=== PATIENT | female | born 1980 | race Caucasian/White ===

== ENCOUNTER 2016-04-03 11:09 | Outpatient (RCR) | payer OTHER ==
[~2016-04-03] VITALS: Ht 175.3 cm; Wt 115.8 kg
[~2016-04-03 11:09] MED LIST: ALBU2.5V4 NEB; ALPR1TAB7 PO; AMOX600S41 PO; CEFD300C3 PO; CYAN100081 PO; CYCL10TA9 PO; FLUC10SU9 PO; FLUO20CA25 PO; FLUO40CA12 PO; IBUP-1773 PO; LEVO750T9 PO; LISI-552 PO; LISI1TAB10 PO; LVT.05T; MULT-35 PO; MULT-974 PO; NADO40TA PO; NAPR-243 PO; NF-ESOM40C; NORG1TAB14 PO; OMEP20CA12 PO; ONDA-42 SL; ONDA4TAB10 PO; ONDA8TAB9 PO; ONDN4T PO; OXYC-197 PO; OXYC5SOL19 PO; PANT40TA2 PO; PANT40TA3 PO; RABE20TA PO; SITA1TAB2 PO; SITA1TAB6 PO; SUCR1ORA5 PO; TRM50T PO; VITAMIN B 12
--- OUTSIDE RECORDS SUMMARY | 2016-04-03 11:14 | XMS REPORT | Continuity of Care Document ---
Author Author [facility] Organization [facility] Address Unknown Phone Unavailable Care Team Providers Care Diorama Model Maker Name Role Phone VAISHNAVI PASCUAL MD PCP Insurance Providers Payer Name Policy Number Subscriber Name Relationship [employer] [place] [id number] Dimitri Mcfadden 18 Self / Same As Patient Advance Directives Directive Response Recorded Date/Time Advance Directives No 09/29/15 11:02am Health Care Power of Radiographic Technologist No 09/29/15 11:02am Organ Donor No 09/29/15 11:02am Resuscitation Status Full Code 09/29/15 11:02am Chief Complaint and Reason for Visit Chief Complaint Fever-Adult/Adol Reason for Visit Hypoxia Postoperative fever Pneumonia Problems Active Problems Medical Problem Onset Date Status Fever Unknown Acute Fever Unknown Acute Hypoxia Unknown Acute Nausea and vomiting Unknown Acute Pleural effusion, left Unknown Acute Pneumonia Unknown Acute Postoperative fever Unknown Acute Right lower quadrant pain Unknown Acute Medications Current Home Medications Medication Dose Units Route Directions Days/Qty Instructions Start Date Lisinopril 20 Mg 20 Mg Oral Daily 09/04/15 Oxycodone Hcl 5 Mg/5 Ml 5-10 Mg Oral Every 6 Hours for Pain 300 Pantoprazole Sodium 40 Mg 40 Mg Oral Daily 30 09/14/15 Ondansetron Hcl 4 Mg 4 Mg Oral Every 6 Hours for Nausea 30 05/27/16 Cefdinir (Omnicef) 300 Mg 300 Mg Oral Twice A Day 14 09/23/15 Levofloxacin 750 Mg 750 Mg Oral Daily 4 Start 09/30/15 09/29/15 Past Home Medications Medication Directions Ordered Status Nadolol 40 Mg Tablet, 40 Mg Oral Bedtime 06/14/09 Discontinued Levothyroxine Sodium (Levothroid) 50 Mcg Tablet, 06/14/09 Discontinued Sitagliptin Phos/Metformin Hcl 1 Each Tablet, 1 Tab Oral Daily 06/14/09 Discontinued Esomeprazole Magnesium 40 Mg Capsule., 06/14/09 Discontinued [Vitamin B 12] , 06/14/09 Discontinued Naproxen 500 Mg Tablet, 1 Each Oral Three Times A Day And Prn 06/15/09 Discontinued Tramadol Hcl 50 Mg Tablet, 1 Tab Oral Four Times Daily 06/15/09 Discontinued Hctz/Lisinopril (Zestoretic) 1 Tab Tablet, 1 Tab Oral Daily 07/08/13 Discontinued Rabeprazole Sodium 20 Mg Tablet., 20 Mg Oral Daily 07/08/13 Discontinued Fluoxetine Hcl (Prozac) 20 Mg Capsule, 20 Mg Oral Bedtime 07/08/13 Discontinued Multivitamin 1 Each Tablet, 1 Tab Oral Daily 07/08/13 Discontinued Cyclobenzaprine Hcl (Flexeril) 10 Mg Tablet, 1 Each Oral Every 8HRS as needed for Spasms 11/18/14 Discontinued Ondansetron Hcl 4 Mg Tab, 4 Mg Sublingual Every 4HRS as needed for Nausea/ Vomiting 11/19/14 Discontinued Ibuprofen 600 Mg Tablet, 600 Mg Oral Every 6 Hours for Pain 12/29/14 Discontinued Oxycodone Hcl/Acetaminophen 1 Each Tablet, 1 Each Oral Every 4HRS 12/29/14 Discontinued Norgestimate-Ethinyl Estradiol 1 Each Tablet, 1 Each Oral Daily 12/29/14 Discontinued Ondansetron 8 Mg Tab.rapdis, 8 Mg Oral Three Times A Day as needed for Nausea 12/29/14 Discontinued Fluoxetine Hcl 40 Mg Capsule, 40 Mg Oral Bedtime 09/04/15 Discontinued Omeprazole 20 Mg Capsule., 20 Mg Oral Daily 09/04/15 Discontinued Sitagliptin Phos/Metformin Hcl 1 Tab Tablet, 1 Tab Oral Daily 09/04/15 Discontinued Social History Social History Problem Response Recorded Date/Time Alcohol Use Denies Use 09/29/2015 11:02am Recreational Drug Use No 09/29/2015 11:02am Recent Foreign Travel No 09/29/2015 11:00am Recent Infectious Disease Exposure No 09/29/2015 11:00am Hospitalization with Isolation Denies 09/29/2015 11:00am HIV/AIDS No 09/29/2015 11:02am Smoking Status Never a Smoker 09/29/2015 11:02am Query Response Start Date Stop Date Smoking Status Never a Smoker Hospital Discharge Instructions No hospital discharge instructions. Plan of Care Discharge Date 09/29/15 3:15pm Disposition 01 HOME, SELF-CARE Condition at Discharge Improved Instructions/Education Provided Bacterial Pneumonia (ED) Prescriptions See Medication Section Referrals VAISHNAVI PASCUAL MD - Primary Care Physician LUIZA BARBOSA - Primary Care Physician Additional Instructions/Education Call [facility] today or Thursday to schedule a follow-up appointment. Contact Dr. Fitzpatrick directly if condition worsens and direct admission is felt necessary. Return to the emergency room for unstable complications. Complete the entire course of antibiotics as prescribed. Continue to use nebulizer treatments up to every 4 hours as needed. Contact Dr. Fitzpatrick if not maintaining oxygen saturations above 90% on 2 Lpm nasal canula. All discharge instructions reviewed with patient and/or family. Voiced understanding. Functional Status No functional status results. Allergies, Adverse Reactions, Alerts Allergen Type Severity Reaction Status Last Updated Sumatriptan Allergy Severe ANAPHYLAXIS Active 09/04/15 Immunizations Name Given Type Date of Influenza Vaccine 02/07/13 Historical Hepatitis A Yes Historical Hepatitis B Yes Historical Tetanus Booster (TDap) Less than 5yrs Historical Vital Signs Acute Vital Signs Vital Response Date/Time Temperature (Fahrenheit) 99.4 degrees F (97.6 - 99.5) 09/29/2015 11:00am Temperature (Calculated Celsius) 37.18687 degrees C (36.4 - 37.5) 09/29/2015 11:00am Temperature Source Temporal 09/29/2015 11:00am Pulse Rate (adult) 104 bpm (60 - 90) 09/29/2015 11:00am Respiratory Rate 18 bpm (12 - 24) 09/29/2015 11:00am O2 Sat by Pulse Oximetry 90 % (88 - 100) 09/29/2015 11:00am Blood Pressure 162/99 mm Hg 09/29/2015 11:00am Blood Pressure Mean 120 mm Hg 09/29/2015 11:00am Pain Pain Intensity 6 09/29/2015 11:00am Height (Feet) 5 feet 09/29/2015 11:00am Height (Inches) 9 inches 09/29/2015 11:00am Height (Calculated Centimeters) 175.347084 cm 09/29/2015 11:00am Weight (Pounds) 304 pounds 09/29/2015 11:00am Weight (Ounces) 0.0 oz 09/13/2015 12:04pm Weight (Calculated Grams) 134496.375 gm 09/13/2015 12:04pm Weight (Calculated Kilograms) 137.865224 kilograms 09/29/2015 11:00am Calculated BMI 47.0 09/13/2015 12:04pm Results Laboratory Results Test Name Result Units Flags Reference Collection Date/Time Result Date/ Time Comments White Blood Count 9.7 10^3/uL 4.3-11.0 09/14/2015 6:07am 09/14/2015 6: 43am Red Blood Count 3.63 10^6/uL L 4.35-5.85 09/14/2015 6:07am 09/14/2015 6: 43am Hemoglobin 10.7 G/DL L 11.5-16.0 09/14/2015 6:07am 09/14/2015 6:43am Hematocrit 33 % L 35-52 09/14/2015 6:07am 09/14/2015 6:43am Mean Corpuscular Volume 90 FL 80-99 09/14/2015 6:07am 09/14/2015 6: 43am Mean Corpuscular Hemoglobin 30 PG 25-34 09/14/2015 6:07am 09/14/2015 6: 43am Mean Corpuscular Hemoglobin Concent 33 G/DL 32-36 09/14/2015 6:07am 6:43am Red Cell Distribution Width 15.1 % H 10.0-14.5 09/14/2015 6:07am 2015 6:43am Platelet Count 255 10^3/uL 130-400 09/14/2015 6:07am 09/14/2015 6:43am Mean Platelet Volume 10.2 FL 7.4-10.4 09/14/2015 6:07am 09/14/2015 6: 43am Sodium Level 140 MMOL/L 135-145 09/14/2015 6:07am 09/14/2015 6:57am Potassium Level 4.5 MMOL/L 3.6-5.0 09/14/2015 6:07am 09/14/2015 6:57am Chloride Level 104 MMOL/L 98-107 09/14/2015 6:07am 09/14/2015 6:57am Carbon Dioxide Level 27 MMOL/L 21-32 09/14/2015 6:07am 09/14/2015 6: 57am Anion Gap 9 MMOL/L 5-14 09/14/2015 6:07am 09/14/2015 6:57am Blood Urea Nitrogen 9 MG/DL 7-18 09/14/2015 6:07am 09/14/2015 6:57am Creatinine 0.78 MG/DL 0.60-1.30 09/14/2015 6:07am 09/14/2015 6:57am BUN/Creatinine Ratio 12 09/14/2015 6:07am 09/14/2015 6:57am Estimat Glomerular Filtration Rate > 60 09/14/2015 6:07am 2015 6:57am GFR INTERPRETIVE DATA UNITS FOR ESTIMATED GFR (eGFR): mL/min/1.73 M2 REFERENCE RANGE FOR ESTIMATED GFR (eGFR) eGFR NORMAL eGFR >60 MODERATELY DECREASED eGFR 30-59 SEVERLY DECREASED eGFR 15-29 KIDNEY FAILURE <15 (OR DIALYSIS) Glucose Level 126 MG/DL H 70-105 09/14/2015 6:07am 09/14/2015 6:57am Calcium Level 8.7 MG/DL 8.5-10.1 09/14/2015 6:07am 09/14/2015 6:57am Pending Laboratory Results Test Name Collection Date/Time Pending Microbiology Results Procedure Source Collection Date/Time Procedures Procedure Status Date Provider(s) EXCISION OF STOMACH, PERCUTANEOUS ENDOSCOPIC APPROACH, VERT Completed KHLOE WHITEHEAD MD Encounters Encounter Location Arrival/Admit Date Discharge/Depart Date Attending Provider Departed Emergency Room [facility] 09/29/15 10:55am 03/05 3:15pm LUIS GEIGER MD Departed Emergency Room [facility] 09/23/15 5:12pm 09/22 8:43pm ALEXA TAYLOR APRN Discharged Inpatient [facility] 09/13/15 11:27am 2:18pm KHLOE WHITEHEAD MD Departed Clinic [facility] 09/04/15 12:21pm 09/04/15 2: 46pm KHLOE WHITEHEAD MD Recent Diagnosis
[2016-04-03] MEDS ORDERED: NADO40TA PO (11:31)
[2016-04-03] MEDS ORDERED: CHOL2000 PO (11:31)
[2016-04-03 11:35] VITALS: BP 172/97
--- OUTSIDE RECORDS SUMMARY | 2016-04-03 12:09 | XMS REPORT | Continuity of Care Document ---
Author Author [facility] Organization [facility] Address Unknown Phone Unavailable Care Team Providers Care Heat Reader Name Role Phone VAISHNAVI PASCUAL MD PCP Insurance Providers Payer Name Policy Number Subscriber Name Relationship [employer] [place] [id number] Dimitri Mcfadden 18 Self / Same As Patient Advance Directives Directive Response Recorded Date/Time Advance Directives No 09/29/15 11:02am Health Care Power of Meal Grinder Tender No 09/29/15 11:02am Organ Donor No 09/29/15 [...] - Primary Care Physician Additional Instructions/Education Call [facility] today or Thursday to schedule a follow-up [...] - 99.5) 09/29/2015 11:00am Temperature (Calculated Celsius) 37.83062 degrees C (36.4 - 37.5) 09/29/2015 11:00am [...] 9 inches 09/29/2015 11:00am Height (Calculated Centimeters) 175.582050 cm 09/29/2015 11:00am Weight (Pounds) 304 pounds 09/29/2015 11:00am Weight (Ounces) 0.0 oz 09/13/2015 12:04pm Weight (Calculated Grams) 962217.375 gm 09/13/2015 12:04pm Weight (Calculated Kilograms) 137.716283 kilograms 09/29/2015 11:00am Calculated BMI 47.0 09/13/2015 [...] Date Attending Provider Departed Emergency Room [facility] 09/29/15 10:55am 03/05 3:15pm LUIS GEIGER MD Departed Emergency Room [facility] 09/23/15 5:12pm 09/22 8:43pm ALEXA TAYLOR APRN Discharged Inpatient [facility] 09/13/15 11:27am 2:18pm KHLOE WHITEHEAD MD Departed Clinic [facility] 09/04/15 12:21pm 09/04/15 2: 46pm KHLOE WHITEHEAD MD Recent Diagnosis
[2016-04-08 08:41] LABS: BASOPHILS % (AUTO) 0 % (0-10); EOSINOPHILS # (AUTO) 0.1 10^3/uL (0.0-0.3); EOSINOPHILS % (AUTO) 1 % (0-10); LYMPHOCYTES % (AUTO) 40 % (12-44); MEAN CORPUSCULAR HEMOGLOBIN 28 PG (25-34); MEAN CORPUSCULAR HGB CONC 32 G/DL (32-36); MEAN CORPUSCULAR VOLUME 88 FL (80-99); MEAN PLATELET VOLUME 10.8 FL (7.4-10.4); MONOCYTES # (AUTO) 0.6 X 10^3 (0.0-1.0); MONOCYTES % (AUTO) 8 % (0-12); NEUTROPHILS # (AUTO) 3.7 X 10^3 (1.8-7.8); NEUTROPHILS % (AUTO) 50 % (42-75); PLATELET COUNT 258 10^3/uL (130-400); RED BLOOD COUNT 4.65 10^6/uL (4.35-5.85); RED CELL DISTRIBUTION WIDTH 15.2 % (10.0-14.5); WHITE BLOOD COUNT 7.4 10^3/uL (4.3-11.0)
[2016-04-08 09:01] LABS: ANION GAP 7 MMOL/L (5-14); BLOOD UREA NITROGEN 11 MG/DL (7-18); BUN/CREATININE RATIO 16; CALCIUM 9.4 MG/DL (8.5-10.1); CARBON DIOXIDE 27 MMOL/L (21-32); CHLORIDE 104 MMOL/L (98-107); CREATININE SERUM 0.68 MG/DL (0.60-1.30); GFR ESTIMATED > 60; GLUCOSE 98 MG/DL (70-105); POTASSIUM 4.1 MMOL/L (3.6-5.0); SODIUM 138 MMOL/L (135-145)
[2016-04-10] MEDS ORDERED: DEXAINTSOL PO (11:06)
[2016-04-10] MEDS ORDERED: AMOX250S5 PO (11:06)
[2016-04-10] MEDS ORDERED: OXYC5SOL19 PO (11:06)
[2016-04-10] MEDS ORDERED: TETRACAINESUCKERS MT (11:06)
== END 2016-07-02 | disposition home or self-care (01) ==
LOC: PREOP 11:09 → EDSTATUS 14:00
PROVIDERS: ATTEND Otolaryngology Otolaryngology/Facial Plastic Surgery
DX: Z01.818 Encounter for other preprocedural examination (principal); G47.33 Obstructive sleep apnea (adult) (pediatric); J35.1 Hypertrophy of tonsils; J35.8 Other chronic diseases of tonsils and adenoids
CPT/HCPCS: 36415; 80048; 84703; 85025; 87081; 93005

== ENCOUNTER → 2016-05-14 | Outpatient (CLI) | payer OTHER ==
[~2016-05-14] VITALS: Ht 175.3 cm; Wt 114.8 kg
[~2016-05-14] MED LIST changes: +AMOX250S5 PO; +CHOL2000 PO; +DEXAINTSOL PO; +NS IV 1000 ML 1,000 ML IV ONE; +TETRACAINESUCKERS MT
--- OUTSIDE RECORDS SUMMARY | 2016-05-14 19:18 | XMS REPORT | Continuity of Care Document ---
Author Author [facility] Organization [facility] Address Unknown Phone Unavailable Care Team Providers Care Hand Lens Polisher Name Role Phone VAISHNAVI PASCUAL MD PCP Insurance Providers Payer Name Policy Number Subscriber Name Relationship [employer] [place] [id number] Dimitri Mcfadden 18 Self / Same As Patient Advance Directives Directive Response Recorded Date/Time Advance Directives No 09/29/15 11:02am Health Care Power of Claims Investigator No 09/29/15 11:02am Organ Donor No 09/29/15 [...] - Primary Care Physician Additional Instructions/Education Call [facility] today or Thursday to schedule a [...] - 99.5) 09/29/2015 11:00am Temperature (Calculated Celsius) 37.00875 degrees C (36.4 - 37.5) 09/29/2015 11:00am [...] 9 inches 09/29/2015 11:00am Height (Calculated Centimeters) 175.776048 cm 09/29/2015 11:00am Weight (Pounds) 304 pounds 09/29/2015 11:00am Weight (Ounces) 0.0 oz 09/13/2015 12:04pm Weight (Calculated Grams) 307270.375 gm 09/13/2015 12:04pm Weight (Calculated Kilograms) 137.049297 kilograms 09/29/2015 11:00am Calculated BMI 47.0 09/13/2015 [...] Date Attending Provider Departed Emergency Room [facility] 09/29/15 10:55am 03/05 3:15pm LUIS GEIGER MD Departed Emergency Room [facility] 09/23/15 5:12pm 09/22 8:43pm ALEXA TAYLOR APRN Discharged Inpatient [facility] 09/13/15 11:27am 2:18pm KHLOE WHITEHEAD MD Departed Clinic [facility] 09/04/15 12:21pm 09/04/15 2: 46pm KHLOE WHITEHEAD MD Recent Diagnosis
[2016-05-14 21:07] VITALS: BP 185/95
[2016-05-15 00:55] VITALS: BP 185/95
== END ==
LOC: 4THo 19:15
PROVIDERS: ATTEND Nurse Practitioner Family
DX: G43.011 Migraine without aura, intractable, with status migrainosus (principal)

== ENCOUNTER 2016-05-19 14:22 | Outpatient (RCR) | payer OTHER ==
[~2016-05-19 14:22] MED LIST changes: -NS IV 1000 ML 1,000 ML IV ONE
--- OUTSIDE RECORDS SUMMARY | 2016-05-19 14:28 | XMS REPORT | Continuity of Care Document ---
Author Author [facility] Organization [facility] Address Unknown Phone Unavailable Care Team Providers Care Environmental Programs Manager Name Role Phone VAISHNAVI PASCUAL MD PCP Insurance Providers Payer Name Policy Number Subscriber Name Relationship [employer] [place] [id number] Dimitri Mcfadden 18 Self / Same As Patient Advance Directives Directive Response Recorded Date/Time Advance Directives No 09/29/15 11:02am Health Care Power of Switch Operators Supervisor No 09/29/15 11:02am Organ Donor No 09/29/15 [...] - Primary Care Physician Additional Instructions/Education [facility] today or Thursday to schedule a follow-up [...] - 99.5) 09/29/2015 11:00am Temperature (Calculated Celsius) 37.43877 degrees C (36.4 - 37.5) 09/29/2015 11:00am [...] 9 inches 09/29/2015 11:00am Height (Calculated Centimeters) 175.885947 cm 09/29/2015 11:00am Weight (Pounds) 304 pounds 09/29/2015 11:00am Weight (Ounces) 0.0 oz 09/13/2015 12:04pm Weight (Calculated Grams) 620061.375 gm 09/13/2015 12:04pm Weight (Calculated Kilograms) 137.964131 kilograms 09/29/2015 11:00am Calculated BMI 47.0 09/13/2015 [...] Date Attending Provider Departed Emergency Room [facility] 09/29/15 10:55am 03/05 3:15pm LUIS GEIGER MD Departed Emergency Room [facility] 09/23/15 5:12pm 09/22 8:43pm ALEXA TAYLOR APRN Discharged Inpatient [facility] 09/13/15 11:27am 2:18pm KHLOE WHITEHEAD MD Departed Clinic [facility] 09/04/15 12:21pm 09/04/15 2: 46pm KHLOE WHITEHEAD MD Recent Diagnosis
== END 2016-05-23 02:15 | disposition home or self-care (01) ==
LOC: LAB 14:22
PROVIDERS: ATTEND Internal Medicine Cardiovascular Disease
DX: I10 Essential (primary) hypertension (principal); G47.33 Obstructive sleep apnea (adult) (pediatric); R21 Rash and other nonspecific skin eruption; E66.9 Obesity, unspecified
CPT/HCPCS: 36415; 82575; 85652; 86038

== ENCOUNTER → 2016-05-21 | Outpatient (CLI) | payer OTHER ==
--- OUTSIDE RECORDS SUMMARY | 2016-05-21 15:04 | XMS REPORT | Continuity of Care Document ---
Author Author [facility] Organization [facility] Address Unknown Phone Unavailable Care Team Providers Care Director Of Dance Name Role Phone VAISHNAVI PASCUAL MD PCP Insurance Providers Payer Name Policy Number Subscriber Name Relationship [employer] [place] [id number] Dimitri Mcfadden 18 Self / Same As Patient Advance Directives Directive Response Recorded Date/Time Advance Directives No 09/29/15 11:02am Health Care Power of Crayon Painter No 09/29/15 11:02am Organ Donor No 09/29/15 [...] - Primary Care Physician Additional Instructions/Education Call [facility] today or Thursday to schedule a follow-up appointment. Contact Dr. iFtzpatrick directly if condition worsens and direct admission [...] - 99.5) 09/29/2015 11:00am Temperature (Calculated Celsius) 37.38264 degrees C (36.4 - 37.5) 09/29/2015 11:00am [...] 9 inches 09/29/2015 11:00am Height (Calculated Centimeters) 175.812685 cm 09/29/2015 11:00am Weight (Pounds) 304 pounds 09/29/2015 11:00am Weight (Ounces) 0.0 oz 09/13/2015 12:04pm Weight (Calculated Grams) 350993.375 gm 09/13/2015 12:04pm Weight (Calculated Kilograms) 137.466843 kilograms 09/29/2015 11:00am Calculated BMI 47.0 09/13/2015 [...] Date Attending Provider Departed Emergency Room [facility] 09/29/15 10:55am 03/05 3:15pm LUIS GEIGER MD Departed Emergency Room [facility] 09/23/15 5:12pm 09/22 8:43pm ALEXA TAYLOR APRN Discharged Inpatient [facility] 09/13/15 11:27am 2:18pm KHLOE WHITEHEAD MD Departed Clinic [facility] 09/04/15 12:21pm 09/04/15 2: 46pm KHLOE WHITEHEAD MD Recent Diagnosis
--- NOTE | 2016-05-21 15:18 | Diagnostic Imaging Report ---
PROCEDURE: CT head without contrast. TECHNIQUE: Multiple contiguous axial images were obtained through the brain without the use of intravenous contrast. INDICATION: Intractable headache. FINDINGS: There is no intracranial hemorrhage, edema, or mass effect. The brain parenchyma and maloney-white matter differentiation is preserved. No extra-axial fluid collection. No hydrocephalus. The calvarium, the visualized portions of the paranasal sinuses, and the orbits appear grossly unremarkable. IMPRESSION: Unremarkable exam. Dictated by: Dictated on workstation # [id number]
== END ==
LOC: RAD 15:00
PROVIDERS: ATTEND Nurse Practitioner Family
DX: G43.019 Migraine without aura, intractable, without status migrainosus (principal)
CPT/HCPCS: 70450

== ENCOUNTER → 2016-05-22 | Outpatient (CLI) | payer OTHER ==
--- OUTSIDE RECORDS SUMMARY | 2016-05-22 08:03 | XMS REPORT | Continuity of Care Document ---
Author Author [facility] Organization [facility] Address Unknown Phone Unavailable Care Team Providers Care Handkerchief Presser Name Role Phone VAISHNAVI PASCUAL MD PCP Insurance Providers Payer Name Policy Number Subscriber Name Relationship [employer] [place] [id number] Dimitri Mcfadden 18 Self / Same As Patient Advance Directives Directive Response Recorded Date/Time Advance Directives No 09/29/15 11:02am Health Care Power of Bicycle Inspector No 09/29/15 11:02am Organ Donor No 09/29/15 [...] Primary Care Physician Additional Instructions/Education Call [facility] today or Thursday to schedule a follow-up [...] - 99.5) 09/29/2015 11:00am Temperature (Calculated Celsius) 37.44008 degrees C (36.4 - 37.5) 09/29/2015 11:00am [...] 9 inches 09/29/2015 11:00am Height (Calculated Centimeters) 175.027678 cm 09/29/2015 11:00am Weight (Pounds) 304 pounds 09/29/2015 11:00am Weight (Ounces) 0.0 oz 09/13/2015 12:04pm Weight (Calculated Grams) 363656.375 gm 09/13/2015 12:04pm Weight (Calculated Kilograms) 137.461875 kilograms 09/29/2015 11:00am Calculated BMI 47.0 09/13/2015 [...] Date Attending Provider Departed Emergency Room [facility] 09/29/15 10:55am 03/05 3:15pm LUIS GEIGER MD Departed Emergency Room [facility] 09/23/15 5:12pm 09/22 8:43pm ALEXA TAYLOR APRN Discharged Inpatient [facility] 09/13/15 11:27am 2:18pm KHLOE WHITEHEAD MD Departed Clinic [facility] 09/04/15 12:21pm 09/04/15 2: 46pm KHLOE WHITEHEAD MD Recent Diagnosis
[2016-05-22 09:46] LABS: MEAN PLATELET VOLUME 10.4 FL (7.4-10.4); RED BLOOD COUNT 4.28 10^6/uL (4.35-5.85); RED CELL DISTRIBUTION WIDTH 14.3 % (10.0-14.5); WHITE BLOOD COUNT 6.2 10^3/uL (4.3-11.0)
[2016-05-22 10:24] LABS: ALANINE AMINOTRANSFERASE 11 U/L (0-55); ALBUMIN 4.2 G/DL (3.2-4.5); ANION GAP 8 MMOL/L (5-14); ASPARTATE AMINO TRANSFERASE 13 U/L (5-34); BILIRUBIN,TOTAL 0.6 MG/DL (0.1-1.0); BLOOD UREA NITROGEN 14 MG/DL (7-18); BUN/CREATININE RATIO 18; CALCIUM 9.4 MG/DL (8.5-10.1); CARBON DIOXIDE 29 MMOL/L (21-32); CHLORIDE 104 MMOL/L (98-107); CHOLESTEROL 180 MG/DL (< 200); DIRECT LDL 127 MG/DL (1-129); GFR ESTIMATED > 60; GLUCOSE 93 MG/DL (70-105); MAGNESIUM 2.3 MG/DL (1.8-2.4); POTASSIUM 3.6 MMOL/L (3.6-5.0); SODIUM 141 MMOL/L (135-145); TOTAL PROTEIN 7.6 G/DL (6.4-8.2); TRIGLYCERIDES 102 MG/DL (<150); VLDL CHOLESTEROL 20 MG/DL (5-40)
[2016-05-22 10:44] LABS: THYROID STIMULATING HORMONE 0.58 UIU/ML (0.35-4.94)
[2016-05-23 07:44] LABS: FOLIC ACID 15.1 ng/mL (1.5-24.0)
[2016-05-23 07:51] LABS: INSULIN SERUM 25.7 mU/L (6.0-27.0)
== END ==
LOC: LAB 07:59
PROVIDERS: ATTEND Nurse Practitioner Family
DX: Z09 Encounter for follow-up examination after completed treatment for conditions other than malignant neoplasm (principal); Z98.890 Other specified postprocedural states
CPT/HCPCS: 36415; 80053; 80061; 82306; 82607; 82746; 83036; 83525; 83735; 84443; 85027

== ENCOUNTER → 2016-05-22 | Outpatient (CLI) | payer OTHER ==
--- OUTSIDE RECORDS SUMMARY | 2016-05-22 08:41 | XMS REPORT | Continuity of Care Document ---
Author Author [facility] Organization [facility] Address Unknown Phone Unavailable Care Team Providers Care Quantitative Associate Name Role Phone VAISHNAVI PASCUAL MD PCP Insurance Providers Payer Name Policy Number Subscriber Name Relationship [employer] [place] [id number] Dimitri Mcfadden 18 Self / Same As Patient Advance Directives Directive Response Recorded Date/Time Advance Directives No 09/29/15 11:02am Health Care Power of Complaint Manager No 09/29/15 11:02am Organ Donor No 09/29/15 [...] - Primary Care Physician Additional Instructions/Education Call [facility] today or Thursday to schedule [...] - 99.5) 09/29/2015 11:00am Temperature (Calculated Celsius) 37.11669 degrees C (36.4 - 37.5) 09/29/2015 11:00am [...] 9 inches 09/29/2015 11:00am Height (Calculated Centimeters) 175.760871 cm 09/29/2015 11:00am Weight (Pounds) 304 pounds 09/29/2015 11:00am Weight (Ounces) 0.0 oz 09/13/2015 12:04pm Weight (Calculated Grams) 288962.375 gm 09/13/2015 12:04pm Weight (Calculated Kilograms) 137.359551 kilograms 09/29/2015 11:00am Calculated BMI 47.0 09/13/2015 [...] Date Attending Provider Departed Emergency Room [facility] 09/29/15 10:55am 03/05 3:15pm ULIS GEIGER MD Departed Emergency Room [facility] 09/23/15 5:12pm 09/22 8:43pm ALEXA TAYLOR APRN Discharged Inpatient [facility] 09/13/15 11:27am 2:18pm KHLOE WHITEHEAD MD Departed Clinic [facility] 09/04/15 12:21pm 09/04/15 2: 46pm KHLOE WHITEHEAD MD Recent Diagnosis
--- NOTE | 2016-05-22 13:13 | Diagnostic Imaging Report ---
Renal duplex ultrasound. INDICATION: Hypertension. FINDINGS: The right kidney is 10.4 cm and the left kidney is 12.4 cm in length. There is no hydronephrosis or focal lesion in either kidney. The urinary bladder appears unremarkable. Incidental gallstones were noted. The peak systolic velocities in the right renal artery are 79, 128, and 91 cm/s from proximal to distal and on the left side 85, 102, and 106 cm/s from proximal to distal. The resistive index on the right side is in the range of 0.61-0.69 and on the left in the range of 0.61-0.67. IMPRESSION: 1. Cholelithiasis. 2. No evidence of renal artery stenosis. Dictated by: Dictated on workstation # [id number]
== END ==
LOC: RAD 08:38
PROVIDERS: ATTEND Internal Medicine Cardiovascular Disease
DX: I10 Essential (primary) hypertension (principal); G47.33 Obstructive sleep apnea (adult) (pediatric); R21 Rash and other nonspecific skin eruption; E66.9 Obesity, unspecified
CPT/HCPCS: 93975

== ENCOUNTER → 2016-06-01 | Outpatient (CLI) | payer OTHER ==
[2016-06-01 10:23] LABS: BODY SURFACE AREA 2.28
--- OUTSIDE RECORDS SUMMARY | 2016-06-02 09:41 | XMS REPORT | Continuity of Care Document ---
Author Author [facility] Organization [facility] Address Unknown Phone Unavailable Care Team Providers Care Inter Com Servicer Name Role Phone VAISHNAVI PASCUAL MD PCP Insurance Providers Payer Name Policy Number Subscriber Name Relationship [employer] [place] [id number] Dimitri Mcfadden 18 Self / Same As Patient Advance Directives Directive Response Recorded Date/Time Advance Directives No 09/29/15 11:02am Health Care Power of Slumber Room Attendant No 09/29/15 11:02am Organ Donor No 09/29/15 [...] Care Physician Additional Instructions/Education Call [facility] today or Thursday to schedule a follow-up [...] - 99.5) 09/29/2015 11:00am Temperature (Calculated Celsius) 37.41191 degrees C (36.4 - 37.5) 09/29/2015 11:00am [...] 9 inches 09/29/2015 11:00am Height (Calculated Centimeters) 175.888513 cm 09/29/2015 11:00am Weight (Pounds) 304 pounds 09/29/2015 11:00am Weight (Ounces) 0.0 oz 09/13/2015 12:04pm Weight (Calculated Grams) 537478.375 gm 09/13/2015 12:04pm Weight (Calculated Kilograms) 137.511360 kilograms 09/29/2015 11:00am Calculated BMI 47.0 09/13/2015 [...] Date Attending Provider Departed Emergency Room [facility] 09/29/15 10:55am 03/05 3:15pm LUIS GEIGER MD Departed Emergency Room [facility] 09/23/15 5:12pm 09/22 8:43pm ALEXA TAYLOR APRN Discharged Inpatient [facility] 09/13/15 11:27am 2:18pm KHLOE WHITEHEAD MD Departed Clinic [facility] 09/04/15 12:21pm 09/04/15 2: 46pm KHLOE WHITEHEAD MD Recent Diagnosis
--- OUTSIDE RECORDS SUMMARY | 2016-06-02 09:44 | XMS REPORT | Continuity of Care Document ---
Author Author [facility] Organization [facility] Address Unknown Phone Unavailable Care Team Providers Care Delivery Analyst Name Role Phone VAISHNAVI PASCUAL MD PCP Insurance Providers Payer Name Policy Number Subscriber Name Relationship [employer] [place] [id number] Dimitri Mcfadden 18 Self / Same As Patient Advance Directives Directive Response Recorded Date/Time Advance Directives No 09/29/15 11:02am Health Care Power of Child Psychology Teacher No 09/29/15 11:02am Organ Donor No 09/29/15 [...] - Primary Care Physician Additional Instructions/Education Call [facility] today or Thursday to schedule a [...] - 99.5) 09/29/2015 11:00am Temperature (Calculated Celsius) 37.45689 degrees C (36.4 - 37.5) 09/29/2015 11:00am [...] 9 inches 09/29/2015 11:00am Height (Calculated Centimeters) 175.624900 cm 09/29/2015 11:00am Weight (Pounds) 304 pounds 09/29/2015 11:00am Weight (Ounces) 0.0 oz 09/13/2015 12:04pm Weight (Calculated Grams) 675598.375 gm 09/13/2015 12:04pm Weight (Calculated Kilograms) 137.790970 kilograms 09/29/2015 11:00am Calculated BMI 47.0 09/13/2015 [...] Date Attending Provider Departed Emergency Room [facility] 09/29/15 10:55am 03/05 3:15pm LUIS GEIGER MD Departed Emergency Room [facility] 09/23/15 5:12pm 09/22 8:43pm ALEXA TAYLOR APRN Discharged Inpatient [facility] 09/13/15 11:27am 2:18pm KHLOE WHITEHEAD MD Departed Clinic [facility] 09/04/15 12:21pm 09/04/15 2: 46pm KHLOE WHITEHEAD MD Recent Diagnosis
[2016-06-06 08:27] LABS: 5HIAA CREATININE 112 MG/DL; CREATININE SEROTONIN 2016 MG/D (700-1600)
[2016-06-06 08:28] LABS: NOREPINEPHRINE RANDOM URINE 53 ug/L
[2016-06-06 08:29] LABS: EPINEPHERINE URINE 2 UG/DAY (1-7)
[2016-06-06 08:31] LABS: NOREPINEPHRINE RATIO 47 H UG/G CRT (0-45)
[2016-06-06 08:32] LABS: CATECHOLAMINES URINE INTERP SEE FOOTNOTE; CREATININE CAT FR MG/DL 112 MG/DL; DOPAMINE RATIO 154 UG/G CRT (0-250)
--- NOTE | 2016-06-11 14:29 | Physician Query-Final Dx ---
ROXANNA BUCKNER 06/11/16 1429: Clinic Account Progress/Dx Physician Query: Please give diagnosis Date of Service Jun 01, 2016 at 08:00 BOONE MUÑOZ MD 06/12/16 0722: Clinic Account Progress/Dx DIAGNOSIS: Diagnosis hypertension ROXANNA BUCKNER Jun 11, 2016 14:29 BOONE MUÑOZ MD Jun 12, 2016 07:22
[2016-07-22 10:32] LABS: 5 HIAA SEROTONIN URINE MG/L 3.8 MG/L
[2016-07-22 10:33] LABS: 5 HIAA SEROTONIN URINE RATIO 4 mg/gCR (0-14); 5 HIAA URINE INTERPRETATION SEE FOOTNOTE
[2016-07-22 10:34] LABS: VMA CREATININE RATIO 3 MG/GCR (0-6); VMA URINE INTERPRETATION SEE FOOTNOTE
[2016-07-22 10:37] LABS: VMA 24 HOUR URINE 3.2
== END ==
LOC: LAB 08:00
PROVIDERS: ATTEND Internal Medicine Cardiovascular Disease
DX: I10 Essential (primary) hypertension (principal)
CPT/HCPCS: 36415; 82384; 82575; 83497; 84585

== ENCOUNTER → 2016-09-12 | Outpatient (CLI) | payer BC ==
[2016-09-12 10:17] LABS: RED BLOOD COUNT 4.11 10^6/uL (4.35-5.85); RED CELL DISTRIBUTION WIDTH 13.9 % (10.0-14.5); WHITE BLOOD COUNT 6.9 10^3/uL (4.3-11.0)
[2016-09-12 10:21] LABS: BILIRUBIN,URINE NEGATIVE (NEGATIVE); KETONES,URINE NEGATIVE (NEGATIVE); LEUKOCYTE ESTERASE ,URINE NEGATIVE (NEGATIVE); NITRITE,URINE NEGATIVE (NEGATIVE); PH,URINE 6.5 (5-9); PROTEIN,URINE NEGATIVE (NEGATIVE); UROBILINOGEN,URINE NORMAL (NORMAL)
[2016-09-12 10:38] LABS: ALANINE AMINOTRANSFERASE 11 U/L (0-55); ANION GAP 10 MMOL/L (5-14); ASPARTATE AMINO TRANSFERASE 12 U/L (5-34); BILIRUBIN,TOTAL 0.4 MG/DL (0.1-1.0); BLOOD UREA NITROGEN 13 MG/DL (7-18); BUN/CREATININE RATIO 18; CALCIUM 9.4 MG/DL (8.5-10.1); CARBON DIOXIDE 28 MMOL/L (21-32); CHLORIDE 102 MMOL/L (98-107); CREATININE SERUM 0.74 MG/DL (0.60-1.30); GFR ESTIMATED > 60; GLUCOSE 94 MG/DL (70-105); PHOSPHORUS 3.1 MG/DL (2.3-4.7); POTASSIUM 3.3 MMOL/L (3.6-5.0); SODIUM 140 MMOL/L (135-145); TOTAL PROTEIN 7.7 G/DL (6.4-8.2)
== END ==
LOC: LAB 08:40
PROVIDERS: ATTEND Nurse Practitioner Family
DX: R82.99 Other abnormal findings in urine (principal); I10 Essential (primary) hypertension
CPT/HCPCS: 80053; 80069; 81000; 82570; 84100; 84156; 85027

== ENCOUNTER → 2016-09-12 | Outpatient (CLI) | payer BC ==
[2016-09-12 11:02] LABS: THYROID STIMULATING HORMONE 0.58 UIU/ML (0.35-4.94)
[2016-09-12 16:51] LABS: %SAT TOTAL IRON BINDING CAPIC 11 % (15-50); TIBC 425 ug/dL (280-380)
[2016-09-12 17:04] LABS: UIBC 377 ug/dL
[2016-09-16 07:37] LABS: FOLIC ACID >24.0 ng/mL (1.5-24.0)
[2016-09-16 07:40] LABS: THIAMINE VITAMIN B1 92 nmol/L (70-180)
== END ==
LOC: LAB 08:21
PROVIDERS: ATTEND Obstetrics & Gynecology
DX: Z01.419 Encounter for gynecological examination (general) (routine) without abnormal findings (principal); E55.9 Vitamin D deficiency, unspecified; E03.9 Hypothyroidism, unspecified; Z87.19 Personal history of other diseases of the digestive system; Z98.890 Other specified postprocedural states
CPT/HCPCS: 36415; 82306; 82607; 82652; 82728; 82746; 83540; 84425; 84439; 84443

== ENCOUNTER → 2016-10-10 | Outpatient (CLI) | payer BC | LOC: LAB 07:39 | PROVIDERS: ATTEND Obstetrics & Gynecology | DX: N97.9 Female infertility, unspecified (principal) | CPT/HCPCS: 36415; 82670 ==

== ENCOUNTER → 2016-10-15 | Outpatient (CLI) | payer BC | LOC: LAB 08:44 | PROVIDERS: ATTEND Obstetrics & Gynecology | DX: N97.9 Female infertility, unspecified (principal) | CPT/HCPCS: 36415; 84144 ==

== ENCOUNTER 2017-03-05 15:05 | Outpatient (CLI) | payer BC ==
[~2017-03-05] VITALS: Ht 175.3 cm; Wt 122.5 kg
[~2017-03-05 15:05] MED LIST changes: -AMLO5TAB2 PO; -CHOL40003 PO; -HYDR25TA4 PO; -NEBI1TAB PO
[2017-03-05] MEDS ORDERED: AMLO5TAB2 PO (15:26)
[2017-03-05] MEDS ORDERED: CHOL40003 PO (15:26)
[2017-03-05] MEDS ORDERED: NEBI1TAB PO (15:26)
[2017-03-05] MEDS ORDERED: CYCL10TA9 PO (15:26)
[2017-03-05] MEDS ORDERED: ALPR1TAB7 PO (15:26)
[2017-03-05] MEDS ORDERED: HYDR25TA4 PO (15:26)
[2017-03-05 15:28] VITALS: BP 131/81
[2017-03-05 21:07] LABS: BILIRUBIN,URINE NEGATIVE (NEGATIVE); KETONES,URINE NEGATIVE (NEGATIVE); LEUKOCYTE ESTERASE ,URINE 1+ (NEGATIVE); NITRITE,URINE NEGATIVE (NEGATIVE); PH,URINE 5 (5-9); PROTEIN,URINE 3+ (NEGATIVE); UROBILINOGEN,URINE NORMAL (NORMAL)
== END 2017-03-05 15:50 | disposition home or self-care (01) ==
LOC: PREOP 15:05
PROVIDERS: ATTEND Obstetrics & Gynecology
DX: Z01.812 Encounter for preprocedural laboratory examination (principal); N80.8 Other endometriosis
CPT/HCPCS: 81000; 86850; 86900; 86901; 87081

== ENCOUNTER → 2017-03-05 | Outpatient (CLI) | payer BC ==
[~2017-03-05] MED LIST changes: +AMLO5TAB2 PO; +CHOL40003 PO; +HYDR25TA4 PO; +NEBI1TAB PO
[2017-03-05 16:21] LABS: BASOPHILS % (AUTO) 0 % (0-10); EOSINOPHILS # (AUTO) 0.1 10^3/uL (0.0-0.3); EOSINOPHILS % (AUTO) 1 % (0-10); LYMPHOCYTES # (AUTO) 3.4 X 10^3 (1.0-4.0); LYMPHOCYTES % (AUTO) 39 % (12-44); MEAN CORPUSCULAR HEMOGLOBIN 29 PG (25-34); MEAN CORPUSCULAR HGB CONC 33 G/DL (32-36); MEAN CORPUSCULAR VOLUME 87 FL (80-99); MEAN PLATELET VOLUME 10.4 FL (7.4-10.4); MONOCYTES # (AUTO) 0.5 X 10^3 (0.0-1.0); MONOCYTES % (AUTO) 6 % (0-12); NEUTROPHILS # (AUTO) 4.7 X 10^3 (1.8-7.8); NEUTROPHILS % (AUTO) 54 % (42-75); PLATELET COUNT 281 10^3/uL (130-400); RED BLOOD COUNT 4.18 10^6/uL (4.35-5.85); WHITE BLOOD COUNT 8.8 10^3/uL (4.3-11.0)
[2017-03-05 16:40] LABS: ALANINE AMINOTRANSFERASE 13 U/L (0-55); ANION GAP 9 MMOL/L (5-14); ASPARTATE AMINO TRANSFERASE 12 U/L (5-34); BILIRUBIN,TOTAL 0.3 MG/DL (0.1-1.0); BLOOD UREA NITROGEN 14 MG/DL (7-18); BUN/CREATININE RATIO 17; CALCIUM 9.2 MG/DL (8.5-10.1); CARBON DIOXIDE 29 MMOL/L (21-32); CHLORIDE 101 MMOL/L (98-107); CREATININE SERUM 0.82 MG/DL (0.60-1.30); GFR ESTIMATED > 60; GLUCOSE 88 MG/DL (70-105); MAGNESIUM 2.3 MG/DL (1.8-2.4); POTASSIUM 3.4 MMOL/L (3.6-5.0); SODIUM 139 MMOL/L (135-145); TOTAL PROTEIN 7.9 GM/DL (6.4-8.2)
== END ==
LOC: SDC 15:11
PROVIDERS: ATTEND Nurse Practitioner Family
DX: M79.671 Pain in right foot (principal); Z98.890 Other specified postprocedural states
CPT/HCPCS: 36415; 80053; 82306; 82607; 82746; 83735; 85025

== ENCOUNTER → 2017-12-18 | Outpatient (CLI) | payer BC, OTHER ==
[~2017-12-18] MED LIST changes: +AMLO5TAB7 PO; +CHOL40003 PO; +ESTR1PAT37 TD; +HYDR25TA4 PO; +NEBI1TAB PO; -OXYC-197 PO; +OXYC-464 PO; +OXYC1TAB87 PO; +SIME80TA16 PO
[2017-12-18 08:40] LABS: HEMOGLOBIN 13.1 G/DL (11.5-16.0); MEAN PLATELET VOLUME 9.9 FL (7.4-10.4); RED BLOOD COUNT 4.55 10^6/uL (4.35-5.85); RED CELL DISTRIBUTION WIDTH 14.8 % (10.0-14.5); WHITE BLOOD COUNT 7.1 10^3/uL (4.3-11.0)
[2017-12-18 08:58] LABS: ALBUMIN 4.3 GM/DL (3.2-4.5); BUN/CREATININE RATIO 16; CALCIUM 9.5 MG/DL (8.5-10.1); CARBON DIOXIDE 26 MMOL/L (21-32); CHLORIDE 104 MMOL/L (98-107); CREATININE SERUM 0.77 MG/DL (0.60-1.30); GFR ESTIMATED > 60; GLUCOSE 96 MG/DL (70-105); MAGNESIUM 2.6 MG/DL (1.8-2.4); POTASSIUM 3.3 MMOL/L (3.6-5.0); SODIUM 140 MMOL/L (135-145)
== END ==
LOC: LAB 07:37
PROVIDERS: ATTEND Internal Medicine Nephrology
DX: I10 Essential (primary) hypertension (principal); E66.9 Obesity, unspecified; Z68.39 Body mass index [BMI] 39.0-39.9, adult
CPT/HCPCS: 80069; 82570; 83735; 84100; 84156

== ENCOUNTER → 2017-12-18 | Outpatient (CLI) | payer BC, OTHER ==
[2017-12-18 08:40] LABS: BASOPHILS % (AUTO) 0 % (0-10); EOSINOPHILS # (AUTO) 0.1 10^3/uL (0.0-0.3); EOSINOPHILS % (AUTO) 1 % (0-10); HEMATOCRIT 40 % (35-52); LYMPHOCYTES # (AUTO) 2.4 X 10^3 (1.0-4.0); LYMPHOCYTES % (AUTO) 34 % (12-44); MEAN CORPUSCULAR HEMOGLOBIN 29 PG (25-34); MEAN CORPUSCULAR HGB CONC 33 G/DL (32-36); MEAN CORPUSCULAR VOLUME 88 FL (80-99); MEAN PLATELET VOLUME 10.1 FL (7.4-10.4); MONOCYTES # (AUTO) 0.4 X 10^3 (0.0-1.0); MONOCYTES % (AUTO) 6 % (0-12); NEUTROPHILS # (AUTO) 4.1 X 10^3 (1.8-7.8); NEUTROPHILS % (AUTO) 59 % (42-75); PLATELET COUNT 283 10^3/uL (130-400); RED BLOOD COUNT 4.55 10^6/uL (4.35-5.85); RED CELL DISTRIBUTION WIDTH 14.7 % (10.0-14.5)
[2017-12-18 08:53] LABS: BILIRUBIN,URINE NEGATIVE (NEGATIVE); CLARITY,URINE CLEAR; COLOR,URINE YELLOW; GLUCOSE, URINE (UA) NEGATIVE (NEGATIVE); KETONES,URINE NEGATIVE (NEGATIVE); LEUKOCYTE ESTERASE ,URINE NEGATIVE (NEGATIVE); NITRITE,URINE NEGATIVE (NEGATIVE); PH,URINE 6 (5-9); PROTEIN,URINE NEGATIVE (NEGATIVE); UROBILINOGEN,URINE NORMAL (NORMAL)
[2017-12-18 08:54] LABS: BACTERIA,URINE FEW /HPF
[2017-12-18 09:02] LABS: ALANINE AMINOTRANSFERASE 16 U/L (0-55); ALBUMIN 4.4 GM/DL (3.2-4.5); ALKALINE PHOSPHATASE 82 U/L (40-136); BILIRUBIN,TOTAL 0.6 MG/DL (0.1-1.0); BUN/CREATININE RATIO 16; CALCIUM 9.6 MG/DL (8.5-10.1); CARBON DIOXIDE 27 MMOL/L (21-32); CHLORIDE 104 MMOL/L (98-107); CHOLESTEROL 169 MG/DL (< 200); CREATININE SERUM 0.77 MG/DL (0.60-1.30); GFR ESTIMATED > 60; GLUCOSE 97 MG/DL (70-105); HDL CHOLESTEROL 44 MG/DL (40-60); POTASSIUM 3.3 MMOL/L (3.6-5.0); SODIUM 140 MMOL/L (135-145); TOTAL PROTEIN 8.2 GM/DL (6.4-8.2); TRIGLYCERIDES 74 MG/DL (<150); VLDL CHOLESTEROL 15 MG/DL (5-40)
== END ==
LOC: LAB 07:34
PROVIDERS: ATTEND Nurse Practitioner Primary Care
DX: I10 Essential (primary) hypertension (principal); E04.1 Nontoxic single thyroid nodule; F41.9 Anxiety disorder, unspecified; Z87.898 Personal history of other specified conditions
CPT/HCPCS: 36415; 80053; 80061; 81000; 84443; 85025

== ENCOUNTER → 2018-01-04 | Outpatient (CLI) | payer BC ==
[2018-01-04 14:44] LABS: ALBUMIN 4.4 GM/DL (3.2-4.5); BUN/CREATININE RATIO 20; CALCIUM 9.9 MG/DL (8.5-10.1); CARBON DIOXIDE 27 MMOL/L (21-32); CHLORIDE 101 MMOL/L (98-107); GFR ESTIMATED > 60; GLUCOSE 94 MG/DL (70-105); MAGNESIUM 2.3 MG/DL (1.8-2.4); PHOSPHORUS 3.7 MG/DL (2.3-4.7); POTASSIUM 3.5 MMOL/L (3.6-5.0); SODIUM 138 MMOL/L (135-145)
== END ==
LOC: LAB 14:05
PROVIDERS: ATTEND Internal Medicine Nephrology
DX: Z84.1 Family history of disorders of kidney and ureter (principal)
CPT/HCPCS: 36415; 80069; 83735

== ENCOUNTER → 2018-01-14 | Outpatient (CLI) | payer BC, OTHER ==
--- NOTE | 2018-01-14 18:36 | Diagnostic Imaging Report ---
PROCEDURE: US Thyroid. TECHNIQUE: Multiple real-time grayscale images were obtained of the thyroid in various projections. INDICATION: Thyroid nodule FINDINGS: The prior thyroid ultrasound exam of 02/04/2016 noted a 4 mm hypoechoic nodule in the right lobe of the thyroid. This finding seemed stable when compared with the prior exam of 06/28/2015. On this exam, the nodule in question is again identified and does not appear to have changed significantly. The relatively stable appearance of this finding over a greater than two-year period would suggest it is not related to an aggressive process. In the interval since the prior exam, a 5 x 6 mm hypoechoic avascular nodule has developed in the superior pole of the left lobe. This finding has a generally benign appearance. If further evaluation is desired however, a short-term (6 month) followup thyroid ultrasound exam should be obtained. The thyroid gland itself is prominent but not enlarged. The right lobe measures 4.8 x 2.3 x 1.7 cm while the left lobe is estimated to be 4.8 x 1.3 x 1.8 cm (normal gland size 4-5 by 2 x 2 cm or less. IMPRESSION: 1. The small hypoechoic nodule in the right lobe seen previously is again evident and does not appear to have changed significantly. This is most likely a benign process. 2. The newly developed hypoechoic lesion in the left lobe also has a generally benign appearance. Recommendations as above. 3. The overall appearance of the thyroid gland is otherwise stable when compared to the prior exam. Dictated by: Dictated on workstation # [id number]
== END ==
LOC: RAD 13:46
PROVIDERS: ATTEND Nurse Practitioner Primary Care
DX: E04.1 Nontoxic single thyroid nodule (principal); E07.89 Other specified disorders of thyroid
CPT/HCPCS: 76536

== ENCOUNTER → 2018-01-19 | Outpatient (CLI) | payer BC, OTHER | LOC: CARD 12:48 | PROVIDERS: ATTEND Internal Medicine Cardiovascular Disease | DX: I10 Essential (primary) hypertension (principal); I34.0 Nonrheumatic mitral (valve) insufficiency; E66.01 Morbid (severe) obesity due to excess calories; G47.30 Sleep apnea, unspecified; I27.20 Pulmonary hypertension, unspecified | CPT/HCPCS: 93306 ==

== ENCOUNTER → 2018-01-27 | Outpatient (CLI) | payer BC, OTHER ==
[~2018-01-27] VITALS: Ht 175.3 cm; Wt 129.7 kg
[~2018-01-27] MED LIST changes: +CATHETER FLUSH 10 ML SYR IV PRN
[2018-01-27 09:19] VITALS: BP 177/91
[2018-01-27 09:22] VITALS: BP 212/87
--- NOTE | 2018-01-28 07:03 | STRESS TEST ---
DATE OF SERVICE: 01/27/2018 EXERCISE MYOVIEW STRESS TEST REPORT Baseline heart rate is 78. Baseline blood pressure 156/69. Baseline EKG is sinus rhythm with nonspecific T-wave abnormality. In summary, the patient was injected with 10.31 mCi of technetium-99 Myoview and the resting images were obtained. Then, the patient started exercising with a baseline heart rate, blood pressure and EKG mentioned above. She was able to exercise for a total of 8 minutes 15 seconds on standard Lam protocol. Test was terminated due to fatigue. She achieved a maximum heart rate of 152 with peak exercise level. EKG was showing [address] depression in II, III, aVF, V4, V5 and V6. Blood pressure was 264/88. During recovery, heart rate and blood pressure returned to baseline. EKG returned to baseline. The resting and stress images were reviewed and compared in the short axis, horizontal long axis, and vertical long axis views. Review of the images showed breast attenuation affecting the quality of the images. There is decreased uptake at the mid to apical anterior wall and anterolateral wall with mild reversibility. SSS is 7, SDS 7, TID value is 1.05. On the gated images, the left ventricle appeared to be in normal size with normal contractility. Calculated ejection fraction is 65%. CONCLUSION: 1. The patient was able to exercise for 8 minutes 15 seconds on standard Lam protocol, total of 9.9 METS achieving 87% of maximum expected heart rate. 2. Baseline hypertension with severe hypertensive response to exercise returned to baseline during recovery. 3. Breast attenuation with typical female pattern, questionable mild decrease uptake at the mid to apical anterior wall and anterolateral wall with mild reversibility. 4. Minimal nondiagnostic EKG changes with exercise returned to baseline during recovery. 5. Normal left ventricular size with normal contractility. Calculated ejection fraction 65%. Anterior wall is franki normally. Job ID: [id number] DocumentID: [id number] Dictated Date: 01/28/2018 06:37:28 Authorization Rep Date: 01/28/2018 07:03:08 Dictated By: BOONE MUÑOZ MD
== END ==
LOC: CARD 07:11
PROVIDERS: ATTEND Internal Medicine Cardiovascular Disease
DX: I10 Essential (primary) hypertension (principal); I34.0 Nonrheumatic mitral (valve) insufficiency; G47.30 Sleep apnea, unspecified; E66.01 Morbid (severe) obesity due to excess calories; Z68.41 Body mass index [BMI] 40.0-44.9, adult
CPT/HCPCS: 78452; 93017

== ENCOUNTER → 2018-02-04 | Outpatient (CLI) | payer BC, OTHER ==
[~2018-02-04] MED LIST changes: +AMLO10TA6 PO; -CATHETER FLUSH 10 ML SYR IV PRN; +CLON1PAT33 TD; +ESTR10TA9 PO; +ESTRADIOL 1 MG PO; +LOSA100T8 PO; +MEDR5TAB4 PO; +NEBI5TAB8 PO; +NFNEB10T PO
[2018-02-04 08:08] LABS: MAGNESIUM 2.3 MG/DL (1.8-2.4); POTASSIUM 3.7 MMOL/L (3.6-5.0)
== END ==
LOC: LAB 07:05
PROVIDERS: ATTEND Nurse Practitioner Family
DX: E83.41 Hypermagnesemia (principal); E87.6 Hypokalemia
CPT/HCPCS: 36415; 80051; 83735

== ENCOUNTER 2018-02-05 06:57 | Day surgery (SDC) | payer BC, OTHER ==
[2018-02-05] VITALS (10 sets, daily range): BP systolic 153–217; BP diastolic 92–108
[~2018-02-05] VITALS: Ht 175.3 cm; Wt 132.4 kg
[~2018-02-05 06:57] MED LIST changes: -AMLO10TA6 PO; -CLON1PAT33 TD; -ESTR10TA9 PO; -ESTRADIOL 1 MG PO; -LOSA100T8 PO; -MEDR5TAB4 PO; -NEBI5TAB8 PO; -NFNEB10T PO
--- OUTSIDE RECORDS SUMMARY | 2018-02-05 07:05 | XMS REPORT | Continuity of Care Document ---
Author Author [facility] Organization [facility] Address Unknown Phone Unavailable Allergies Active Description Code Type Severity Reaction Onset Reported/Identified Relationship to Patient Clinical Status Yes NKANo Known Allergies NKA Miscellaneous Allergy Mild N/A 06/14/2009 Yes naproxen [id number] Drug Allergy Severe ANAPHYLAXIS 09/04/2015 Yes sumatriptan [id number] Drug Allergy Severe ANAPHYLAXIS 09/04/2015 Yes fentanyl [id number] Drug Allergy Moderate MIGRAINE LEVEL 10/06/2015 Medications There is no data. Problems Date Dx Coded Attending Type Code Diagnosis Diagnosed By BOONE MUÑOZ MD Ot E66.9 OBESITY, UNSPECIFIED BOONE MUÑOZ MD Ot G47.33 OBSTRUCTIVE SLEEP APNEA (ADULT) (PEDIATR BOONE MUÑOZ MD Ot I10 ESSENTIAL (PRIMARY) HYPERTENSION BOONE MUÑOZ MD Ot R21 RASH AND OTHER NONSPECIFIC SKIN ERUPTION 11/11/2007 TERRY PERSON APRN S 251.1 HYPERINSULINISM 11/11/2007 TERRY PERSON APRN S 401.9 UNSPECIFIED ESSENTIAL HYPERTENSION 11/11/2007 CORNELIO SANCHEZ APRNYL A 251.1 HYPERINSULINISM 11/11/2007 DANIEL ZUÑIGA JOSE A 401.9 UNSPECIFIED ESSENTIAL HYPERTENSION 11/11/2007 251.1 HYPERINSULINISM 11/11/2007 401.9 UNSPECIFIED ESSENTIAL HYPERTENSION 11/11/2007 251.1 HYPERINSULINISM 11/11/2007 401.9 UNSPECIFIED ESSENTIAL HYPERTENSION 11/11/2007 TERRY PERSON APRN S 251.1 HYPERINSULINISM 11/11/2007 FRANCISCO PERSON APRNA S 401.9 UNSPECIFIED ESSENTIAL HYPERTENSION 11/11/2007 DANIEL ZUÑIGA JOSE A 251.1 HYPERINSULINISM 11/11/2007 CORENLIO SANCHEZ APRNYL A 401.9 UNSPECIFIED ESSENTIAL HYPERTENSION 11/11/2007 DAVIE HIDE OR SKIN BUFFER, MARINA R 251.1 HYPERINSULINISM 11/11/2007 DAVIE HIDE OR SKIN BUFFER, MARINA R 401.9 UNSPECIFIED ESSENTIAL HYPERTENSION 11/11/2007 SOUTH DO, CAROLYN K 251.1 HYPERINSULINISM 11/11/2007 SOUTH DO, CAROLYN K 401.9 UNSPECIFIED ESSENTIAL HYPERTENSION 11/11/2007 DAVIE HIDE OR SKIN BUFFER, MARINA R 251.1 HYPERINSULINISM 11/11/2007 DAVIE HIDE OR SKIN BUFFER, MARINA R 401.9 UNSPECIFIED ESSENTIAL HYPERTENSION 11/11/2007 DAVIE HIDE OR SKIN BUFFER, MARINA R 251.1 HYPERINSULINISM 11/11/2007 DAVIE HIDE OR SKIN BUFFER, MARINA R 401.9 UNSPECIFIED ESSENTIAL HYPERTENSION 11/11/2007 DWAYNEE HIDE OR SKIN BUFFER, JOSE A 251.1 HYPERINSULINISM 11/11/2007 DANIEL HIDE OR SKIN BUFFER, JOSE A 401.9 UNSPECIFIED ESSENTIAL HYPERTENSION 11/11/2007 DAVIE HIDE OR SKIN BUFFER, MARINA R 251.1 HYPERINSULINISM 11/11/2007 DAVIE HIDE OR SKIN BUFFER, MARINA R 401.9 UNSPECIFIED ESSENTIAL HYPERTENSION 11/11/2007 DAVIE HIDE OR SKIN BUFFER, MARINA R 251.1 HYPERINSULINISM 11/11/2007 DAVIE HIDE OR SKIN BUFFER, MARINA R 401.9 UNSPECIFIED ESSENTIAL HYPERTENSION 11/11/2007 MADL HIDE OR SKIN BUFFER, LUIZA L 251.1 HYPERINSULINISM 11/11/2007 MADL HIDE OR SKIN BUFFER, LUIZA L 401.9 UNSPECIFIED ESSENTIAL HYPERTENSION 12/10/2007 TERRY PERSON APRN S V72.31 Routine Gynecological Examination 12/10/2007 CORNELIO SANCHEZ APRNYL A V72.31 Routine Gynecological Examination 12/10/2007 V72.31 Routine Gynecological Examination 12/10/2007 V72.31 Routine Gynecological Examination 12/10/2007 TERRY PERSON APRN S V72.31 Routine Gynecological Examination 12/10/2007 DANIEL ZUÑIGA JOSE A V72.31 Routine Gynecological Examination 12/10/2007 DAVIE ZUÑIGA MARINA R V72.31 Routine Gynecological Examination 12/10/2007 SOUTH DO, CAROLYN K V72.31 Routine Gynecological Examination 12/10/2007 DAVIE ZUÑIGA, MARINA R V72.31 Routine Gynecological Examination 12/10/2007 DAVIE ZUÑIGA MARINA R V72.31 Routine Gynecological Examination 12/10/2007 DANIEL ZUÑIGA JOSE A V72.31 Routine Gynecological Examination 12/10/2007 MARINA BRODERICK APRN R V72.31 Routine Gynecological Examination 12/10/2007 MARINA BRODERICK APRN R V72.31 Routine Gynecological Examination 12/10/2007 LUIZA BARBOSA APRN V72.31 Routine Gynecological Examination 06/10/2008 TERRY PERSON APRN V74.5 Visit For: Screening Exam Bact/spirochetal Venereal Disease 06/10/2008 CORNELIO SANCHEZ APRNYL A V74.5 Visit For: Screening Exam Bact/spirochetal Venereal Disease 06/10/2008 V74.5 Visit For: Screening Exam Bact/spirochetal Venereal Disease 06/10/2008 V74.5 Visit For: Screening Exam Bact/spirochetal Venereal Disease 06/10/2008 TERRY PERSON APRN S V74.5 Visit For: Screening Exam Bact/spirochetal Venereal Disease 06/10/2008 JOSE SANCHEZ APRN A V74.5 Visit For: Screening Exam Bact/spirochetal Venereal Disease 06/10/2008 MARINA BRODERICK APRN R V74.5 Visit For: Screening Exam Bact/spirochetal Venereal Disease 06/10/2008 CAROLYN SOUTH DO V74.5 Visit For: Screening Exam Bact/spirochetal Venereal Disease 06/10/2008 RAMO BRODERICK APRNINA R V74.5 Visit For: Screening Exam Bact/spirochetal Venereal Disease 06/10/2008 RAMO BRODERICK APRNINA R V74.5 Visit For: Screening Exam Bact/spirochetal Venereal Disease 06/10/2008 CORNELIO SANCHEZ APRNYL A V74.5 Visit For: Screening Exam Bact/spirochetal Venereal Disease 06/10/2008 RAMO BRODERICK APRNINA R V74.5 Visit For: Screening Exam Bact/spirochetal Venereal Disease 06/10/2008 MARINA BRODERICK APRN R V74.5 Visit For: Screening Exam Bact/spirochetal Venereal Disease 06/10/2008 LUIZA BARBOSA APRN L V74.5 Visit For: Screening Exam Bact/spirochetal Venereal Disease 06/19/2009 RAZA HIDE OR SKIN BUFFER, TERRY S 783.1 WEIGHT GAIN ABNORMAL 06/19/2009 RAJOTTE HIDE OR SKIN BUFFER, JOSE A 783.1 WEIGHT GAIN ABNORMAL 06/19/2009 783.1 WEIGHT GAIN ABNORMAL 06/19/2009 783.1 WEIGHT GAIN ABNORMAL 06/19/2009 RAZA HIDE OR SKIN BUFFER, TERRY S 783.1 WEIGHT GAIN ABNORMAL 06/19/2009 RAJOTTE HIDE OR SKIN BUFFER, JOSE A 783.1 WEIGHT GAIN ABNORMAL 06/19/2009 DAVIE HIDE OR SKIN BUFFER, MARINA R 783.1 WEIGHT GAIN ABNORMAL 06/19/2009 SOUTH DO, CAROLYN K 783.1 WEIGHT GAIN ABNORMAL 06/19/2009 DAVIE HIDE OR SKIN BUFFER, MARINA R 783.1 WEIGHT GAIN ABNORMAL 06/19/2009 DAVIE HIDE OR SKIN BUFFER, MARINA R 783.1 WEIGHT GAIN ABNORMAL 06/19/2009 RAJOTTE HIDE OR SKIN BUFFER, JOSE A 783.1 WEIGHT GAIN ABNORMAL 06/19/2009 DAVIE HIDE OR SKIN BUFFER, MARINA R 783.1 WEIGHT GAIN ABNORMAL 06/19/2009 DAVIE HIDE OR SKIN BUFFER, MARINA R 783.1 WEIGHT GAIN ABNORMAL 06/19/2009 MADL HIDE OR SKIN BUFFER, LUIZA L 783.1 WEIGHT GAIN ABNORMAL 06/25/2009 FRANCISCO PERSON APRNA S 241.0 Thyroid Nodule 06/25/2009 RAJDHEERAJE HIDE OR SKIN BUFFER, JOSE A 241.0 Thyroid Nodule 06/25/2009 241.0 Thyroid Nodule 06/25/2009 241.0 Thyroid Nodule 06/25/2009 FRANCISCO PERSON APRNA S 241.0 Thyroid Nodule 06/25/2009 RAJOTTE HIDE OR SKIN BUFFER, JOSE A 241.0 Thyroid Nodule 06/25/2009 DAVIE HIDE OR SKIN BUFFER, MARINA R 241.0 Thyroid Nodule 06/25/2009 SOUTH DO, CAROLYN K 241.0 Thyroid Nodule 06/25/2009 DAVIE HIDE OR SKIN BUFFER, MARINA R 241.0 Thyroid Nodule 06/25/2009 DAVIE HIDE OR SKIN BUFFER, MARINA R 241.0 Thyroid Nodule 06/25/2009 RAJOTTE HIDE OR SKIN BUFFER, JOSE A 241.0 Thyroid Nodule 06/25/2009 DAVIE HIDE OR SKIN BUFFER, MARINA R 241.0 Thyroid Nodule 06/25/2009 DAVIE HIDE OR SKIN BUFFER, MARINA R 241.0 Thyroid Nodule 06/25/2009 MADL HIDE OR SKIN BUFFER, LUIZA L 241.0 Thyroid Nodule 07/17/2009 RAZA HIDE OR SKIN BUFFER, TERRY S 462 Pharyngitis Acute 07/17/2009 RAJOTTE HIDE OR SKIN BUFFER, JOSE A 462 Pharyngitis Acute 07/17/2009 462 Pharyngitis Acute 07/17/2009 462 Pharyngitis Acute 07/17/2009 RAZA HIDE OR SKIN BUFFER, TERRY S 462 Pharyngitis Acute 07/17/2009 SHERITAOTTE HIDE OR SKIN BUFFER, JOSE A 462 Pharyngitis Acute 07/17/2009 DAVIE HIDE OR SKIN BUFFER, MARINA R 462 Pharyngitis Acute 07/17/2009 SOUTH DO, CAROLYN K 462 Pharyngitis Acute 07/17/2009 DAVIE HIDE OR SKIN BUFFER, MARINA R 462 Pharyngitis Acute 07/17/2009 DAVIE HIDE OR SKIN BUFFER, MARINA R 462 Pharyngitis Acute 07/17/2009 RAJOTTE HIDE OR SKIN BUFFER, JOSE A 462 Pharyngitis Acute 07/17/2009 DAVIE HIDE OR SKIN BUFFER, MARINA R 462 Pharyngitis Acute 07/17/2009 DAVIE HIDE OR SKIN BUFFER, MARINA R 462 Pharyngitis Acute 07/17/2009 MADBreezy HIDE OR SKIN BUFFER, LUIZA L 462 Pharyngitis Acute 09/13/2009 RAZA HIDE OR SKIN BUFFER, TERRY S V74.1 Screening Examination For Pulmonary Tuberculosis 09/13/2009 DANIEL ZUÑIGA, JOSE A V74.1 Screening Examination For Pulmonary Tuberculosis 09/13/2009 V74.1 Screening Examination For Pulmonary Tuberculosis 09/13/2009 V74.1 Screening Examination For Pulmonary Tuberculosis 09/13/2009 RAZA ZUÑIGA, TERRY S V74.1 Screening Examination For Pulmonary Tuberculosis 09/13/2009 DANIEL HIDE OR SKIN BUFFER, JOSE A V74.1 Screening Examination For Pulmonary Tuberculosis 09/13/2009 DAVIE HIDE OR SKIN BUFFER, MARINA R V74.1 Screening Examination For Pulmonary Tuberculosis 09/13/2009 SOUTH DO, CAROLYN K V74.1 Screening Examination For Pulmonary Tuberculosis 09/13/2009 DAVIE HIDE OR SKIN BUFFER, MARINA R V74.1 Screening Examination For Pulmonary Tuberculosis 09/13/2009 DAVIE HIDE OR SKIN BUFFER, MARINA R V74.1 Screening Examination For Pulmonary Tuberculosis 09/13/2009 DANIEL HIDE OR SKIN BUFFER, JOSE A V74.1 Screening Examination For Pulmonary Tuberculosis 09/13/2009 DAVIE HIDE OR SKIN BUFFER, MARINA R V74.1 Screening Examination For Pulmonary Tuberculosis 09/13/2009 MARINA BRODERICK APRN R V74.1 Screening Examination For Pulmonary Tuberculosis 09/13/2009 LUIZA BARBOSA APRN V74.1 Screening Examination For Pulmonary Tuberculosis 05/19/2011 TERRY PERSON APRN S 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 05/19/2011 DANIEL ZUÑIGA JOSE A 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 05/19/2011 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 05/19/2011 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 05/19/2011 TERRY PERSON APRN S 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 05/19/2011 CORNELIO SANCHEZ APRNYL A 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 05/19/2011 RAMO BRODERICK APRNINA R 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 05/19/2011 CAROLYN SOUTH DO 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 05/19/2011 DAVIE ZUÑIGA MARINA R 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 05/19/2011 DAVIE ZUÑIGA MARINA R 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 05/19/2011 CORNELIO SANCHEZ APRNYL A 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 05/19/2011 DAVIE ZUÑIGA MARINA R 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 05/19/2011 DAVIE ZUÑIGA MARINA R 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 05/19/2011 LUIZA BARBOSA APRN L 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 01/26/2012 TERRY PERSON APRN S 244.9 Hypothyroidism 01/26/2012 TERRY PERSON APRN S 719.46 Pain In Joint Involving Lower Leg 01/26/2012 TERRY PERSON APRN S V04.81 Flu Dx (3 Yrs And Above, Im) 01/26/2012 DANIEL ZUÑIGA JOSE A 244.9 Hypothyroidism 01/26/2012 RAJORAL ZUÑIGA JOSE A 719.46 Pain In Joint Involving Lower Leg 01/26/2012 DANIEL ZUÑIGA JOSE A V04.81 Flu Dx (3 Yrs And Above, Im) 01/26/2012 244.9 Hypothyroidism 01/26/2012 719.46 Pain In Joint Involving Lower Leg 01/26/2012 V04.81 Flu Dx (3 Yrs And Above, Im) 01/26/2012 244.9 Hypothyroidism 01/26/2012 719.46 Pain In Joint Involving Lower Leg 01/26/2012 V04.81 Flu Dx (3 Yrs And Above, Im) 01/26/2012 FRANCISCO PERSON APRNA S 244.9 Hypothyroidism 01/26/2012 FRANCISCO PERSON APRNA S 719.46 Pain In Joint Involving Lower Leg 01/26/2012 FRANCISCO PERSON APRNA S V04.81 Flu Dx (3 Yrs And Above, Im) 01/26/2012 DANIEL ZUÑIGA JOSE A 244.9 Hypothyroidism 01/26/2012 CORNELIO SANCHEZ APRNYL A 719.46 Pain In Joint Involving Lower Leg 01/26/2012 DANIEL ZUÑIGA JOSE A V04.81 Flu Dx (3 Yrs And Above, Im) 01/26/2012 RAMO BRODERICK APRNINA R 244.9 Hypothyroidism 01/26/2012 MARINA BRODERICK APRN R 719.46 Pain In Joint Involving Lower Leg 01/26/2012 DAVIE ZUÑIGA MARINA R V04.81 Flu Dx (3 Yrs And Above, Im) 01/26/2012 SOUTH DO, CAROLYN K 244.9 Hypothyroidism 01/26/2012 SOUTH DO, CAROLYN K 719.46 Pain In Joint Involving Lower Leg 01/26/2012 SOUTH DO, CAROLYN K V04.81 Flu Dx (3 Yrs And Above, Im) 01/26/2012 DAVIE ZUÑIGA MARINA R 244.9 Hypothyroidism 01/26/2012 RAMO BRODERICK APRNINA R 719.46 Pain In Joint Involving Lower Leg 01/26/2012 DAVIE ZUÑIGA MARINA R V04.81 Flu Dx (3 Yrs And Above, Im) 01/26/2012 DAVIE ZUÑIGA MARINA R 244.9 Hypothyroidism 01/26/2012 DAVIE ZUÑIGA MARINA R 719.46 Pain In Joint Involving Lower Leg 01/26/2012 DAVIE ZUÑIGA MARINA R V04.81 Flu Dx (3 Yrs And Above, Im) 01/26/2012 DANIEL ZUÑIGA JOSE A 244.9 Hypothyroidism 01/26/2012 DANIEL ZUÑIGA JOSE A 719.46 Pain In Joint Involving Lower Leg 01/26/2012 DANIEL ZUÑIGA, JOSE A V04.81 Flu Dx (3 Yrs And Above, Im) 01/26/2012 DAVIE ZUÑIGA, MARINA R 244.9 Hypothyroidism 01/26/2012 DAVIE HIDE OR SKIN BUFFER, MARINA R 719.46 Pain In Joint Involving Lower Leg 01/26/2012 DAVIE ZUÑIGA MARINA R V04.81 Flu Dx (3 Yrs And Above, Im) 01/26/2012 DAVIE ZUÑIGA MARINA R 244.9 Hypothyroidism 01/26/2012 DAVIE HIDE OR SKIN BUFFER, MARINA R 719.46 Pain In Joint Involving Lower Leg 01/26/2012 DAVIE ZUÑIGA MARINA R V04.81 Flu Dx (3 Yrs And Above, Im) 01/26/2012 CHELSEY TANASHISH IbrahimA L 244.9 Hypothyroidism 01/26/2012 CHELSEY TANAlexandria LUIZA L 719.46 Pain In Joint Involving Lower Leg 01/26/2012 CHELSEY TANASHISH IbrahimA L V04.81 Flu Dx (3 Yrs And Above, Im) 02/18/2012 FRANCISCO PERSON APRNA S V06.1 Tdap Dx 02/18/2012 FRANCISCO PERSON APRNA S V81.1 Hypertension Screening 02/18/2012 DANIEL ZUÑIGA JOSE A V06.1 Tdap Dx 02/18/2012 DANIEL ZUÑIGA JOSE A V81.1 Hypertension Screening 02/18/2012 V06.1 Tdap Dx 02/18/2012 V81.1 Hypertension Screening 02/18/2012 V06.1 Tdap Dx 02/18/2012 V81.1 Hypertension Screening 02/18/2012 JACINDA PERSON APRNNDA S V06.1 Tdap Dx 02/18/2012 JACINDA PERSON APRNNDA S V81.1 Hypertension Screening 02/18/2012 DANIEL ZUÑIGA JOSE A V06.1 Tdap Dx 02/18/2012 DANIEL ZUÑIGA JOSE A V81.1 Hypertension Screening 02/18/2012 DAVIE ZUÑIGA MARINA R V06.1 Tdap Dx 02/18/2012 RAMO BRODERICK APRNINA R V81.1 Hypertension Screening 02/18/2012 SOUTH DO, CAROLYN K V06.1 Tdap Dx 02/18/2012 SOUTH DO, CAROLYN K V81.1 Hypertension Screening 02/18/2012 DAVIE HIDE OR SKIN BUFFER, MARINA R V06.1 Tdap Dx 02/18/2012 DAVIE HIDE OR SKIN BUFFER, MARINA R V81.1 Hypertension Screening 02/18/2012 DAVIE HIDE OR SKIN BUFFER, MARNIA R V06.1 Tdap Dx 02/18/2012 DAVIE HIDE OR SKIN BUFFER, MARINA R V81.1 Hypertension Screening 02/18/2012 RAJOTTE HIDE OR SKIN BUFFER, JOSE A V06.1 Tdap Dx 02/18/2012 RAJOTTE HIDE OR SKIN BUFFER, JOSE A V81.1 Hypertension Screening 02/18/2012 DAVIE HIDE OR SKIN BUFFER, MARINA R V06.1 Tdap Dx 02/18/2012 DAVIE HIDE OR SKIN BUFFER, MARINA R V81.1 Hypertension Screening 02/18/2012 DAVIE HIDE OR SKIN BUFFER, MARINA R V06.1 Tdap Dx 02/18/2012 DAVIE HIDE OR SKIN BUFFER, MARINA R V81.1 Hypertension Screening 02/18/2012 MADL HIDE OR SKIN BUFFER, LUIZA L V06.1 Tdap Dx 02/18/2012 MADL HIDE OR SKIN BUFFER, LUIZA L V81.1 Hypertension Screening 03/01/2012 FRANCISCO PERSON APRNA S 300.4 DYSTHYMIC DISORDER 03/01/2012 DANIEL HIDE OR SKIN BUFFER, JOSE A 300.4 DYSTHYMIC DISORDER 03/01/2012 300.4 DYSTHYMIC DISORDER 03/01/2012 300.4 DYSTHYMIC DISORDER 03/01/2012 JACINDA PERSON APRNNDA S 300.4 DYSTHYMIC DISORDER 03/01/2012 DANIEL HIDE OR SKIN BUFFER, JOSE A 300.4 DYSTHYMIC DISORDER 03/01/2012 DAVIE HIDE OR SKIN BUFFER, MARINA R 300.4 DYSTHYMIC DISORDER 03/01/2012 SOUTH DO, CAROLYN K 300.4 DYSTHYMIC DISORDER 03/01/2012 DAVIE HIDE OR SKIN BUFFER, MARINA R 300.4 DYSTHYMIC DISORDER 03/01/2012 DAVIE HIDE OR SKIN BUFFER, MARINA R 300.4 DYSTHYMIC DISORDER 03/01/2012 DWAYNEE HIDE OR SKIN BUFFER, JOSE A 300.4 DYSTHYMIC DISORDER 03/01/2012 DAVIE HIDE OR SKIN BUFFER, MARINA R 300.4 DYSTHYMIC DISORDER 03/01/2012 DAVIE HIDE OR SKIN BUFFER, MARINA R 300.4 DYSTHYMIC DISORDER 03/01/2012 MADL HIDE OR SKIN BUFFER, LUIZA L 300.4 DYSTHYMIC DISORDER 07/20/2012 RAJOTTE HIDE OR SKIN BUFFER, JOSE A V05.3 HEP A (ADULT) DX 07/20/2012 RAJOTTE HIDE OR SKIN BUFFER, JOSE A V05.4 VARICELLA DX 07/20/2012 RAJOTTE HIDE OR SKIN BUFFER, JOSE A V74.1 TB SCREENING 07/20/2012 V05.3 HEP A (ADULT) DX 07/20/2012 V05.4 VARICELLA DX 07/20/2012 V74.1 TB SCREENING 07/20/2012 V05.3 HEP A (ADULT) DX 07/20/2012 V05.4 VARICELLA DX 07/20/2012 V74.1 TB SCREENING 07/20/2012 RAJOTTE HIDE OR SKIN BUFFER, JOSE A V05.3 HEP A (ADULT) DX 07/20/2012 RAJOTTE HIDE OR SKIN BUFFER, JOSE A V05.4 VARICELLA DX 07/20/2012 RAJOTTE HIDE OR SKIN BUFFER, JOSE A V74.1 TB SCREENING 07/20/2012 DAVIE HIDE OR SKIN BUFFER, MARINA R V05.3 HEP A (ADULT) DX 07/20/2012 DAVIE HIDE OR SKIN BUFFER, MARINA R V05.4 VARICELLA DX 07/20/2012 DAVIE HIDE OR SKIN BUFFER, MARINA R V74.1 TB SCREENING 07/20/2012 SOUTH DO, CAROLYN K V05.3 HEP A (ADULT) DX 07/20/2012 SOUTH DO, CAROLYN K V05.4 VARICELLA DX 07/20/2012 SOUTH DO, CAROLYN K V74.1 TB SCREENING 07/20/2012 DAVIE HIDE OR SKIN BUFFER, MARINA R V05.3 HEP A (ADULT) DX 07/20/2012 DAVIE HIDE OR SKIN BUFFER, MARINA R V05.4 VARICELLA DX 07/20/2012 DAVIE HIDE OR SKIN BUFFER, MARINA R V74.1 TB SCREENING 07/20/2012 DAVIE HIDE OR SKIN BUFFER, MARINA R V05.3 HEP A (ADULT) DX 07/20/2012 DAVIE HIDE OR SKIN BUFFER, MARINA R V05.4 VARICELLA DX 07/20/2012 DAVIE HIDE OR SKIN BUFFER, MARINA R V74.1 TB SCREENING 07/20/2012 RAJOTTE HIDE OR SKIN BUFFER, JOSE A V05.3 HEP A (ADULT) DX 07/20/2012 RAJOTTE HIDE OR SKIN BUFFER, JOSE A V05.4 VARICELLA DX 07/20/2012 RAJOTTE HIDE OR SKIN BUFFER, JOSE A V74.1 TB SCREENING 07/20/2012 DAVIE HIDE OR SKIN BUFFER, MARINA R V05.3 HEP A (ADULT) DX 07/20/2012 DAVIE HIDE OR SKIN BUFFER, MARINA R V05.4 VARICELLA DX 07/20/2012 DAVIE HIDE OR SKIN BUFFER, MARINA R V74.1 TB SCREENING 07/20/2012 DAVIE HIDE OR SKIN BUFFER, MARINA R V05.3 HEP A (ADULT) DX 07/20/2012 DAVIE HIDE OR SKIN BUFFER, MARINA R V05.4 VARICELLA DX 07/20/2012 DAVIE HIDE OR SKIN BUFFER, MARINA R V74.1 TB SCREENING 07/20/2012 MADL HIDE OR SKIN BUFFER, LUIZA L V05.3 HEP A (ADULT) DX 07/20/2012 MADL HIDE OR SKIN BUFFER, LUIZA L V05.4 VARICELLA DX 07/20/2012 MADL HIDE OR SKIN BUFFER, LUIZA L V74.1 TB SCREENING 04/08/2013 DANIEL ZUÑIGA, JOSE A 789.01 ABDOMINAL PAIN RIGHT UPPER QUADRANT 04/08/2013 DAVIE ZUÑIGA, MARINA R 789.01 ABDOMINAL PAIN RIGHT UPPER QUADRANT 04/08/2013 AKOSUA DOBRIDGETTA K 789.01 ABDOMINAL PAIN RIGHT UPPER QUADRANT 04/08/2013 DAVIE TANN, MARINA R 789.01 ABDOMINAL PAIN RIGHT UPPER QUADRANT 04/08/2013 DAVIE TANN, MARINA R 789.01 ABDOMINAL PAIN RIGHT UPPER QUADRANT 04/08/2013 DANIEL ZUÑIGA JOSE A 789.01 ABDOMINAL PAIN RIGHT UPPER QUADRANT 04/08/2013 DAVIE ZUÑIGA, MARINA R 789.01 ABDOMINAL PAIN RIGHT UPPER QUADRANT 04/08/2013 DAVIE TANN, MARINA R 789.01 ABDOMINAL PAIN RIGHT UPPER QUADRANT 04/08/2013 CHELSEY ZUÑIGA, LUIZA L 789.01 ABDOMINAL PAIN RIGHT UPPER QUADRANT 06/09/2013 DAVIE TANN, MARINA R 578.1 BLOOD IN STOOL 06/09/2013 SOUTH DO CAROLYN K 578.1 BLOOD IN STOOL 06/09/2013 DAVIE TANN, MARINA R 578.1 BLOOD IN STOOL 06/09/2013 DAVIE TANN, MARINA R 578.1 BLOOD IN STOOL 06/09/2013 DANIEL ZUÑIGA JOSE A 578.1 BLOOD IN STOOL 06/09/2013 DAVIE HIDE OR SKIN BUFFER, MARINA R 578.1 BLOOD IN STOOL 06/09/2013 DAVIE TANN, MARINA R 578.1 BLOOD IN STOOL 06/09/2013 CHELSEY ZUÑIGA, LUIZA L 578.1 BLOOD IN STOOL 09/23/2013 DAVIE HIDE OR SKIN BUFFER, MARINA R 300.00 ANXIETY STATE UNSPECIFIED 09/23/2013 DAVIE HIDE OR SKIN BUFFER, MARINA R 300.00 ANXIETY STATE UNSPECIFIED 09/23/2013 DANIEL TANN, JOSE A 300.00 ANXIETY STATE UNSPECIFIED 09/23/2013 DAVIE HIDE OR SKIN BUFFER, MARINA R 300.00 ANXIETY STATE UNSPECIFIED 09/23/2013 DAVIE HIDE OR SKIN BUFFER, MARINA R 300.00 ANXIETY STATE UNSPECIFIED 09/23/2013 CHELSEY HIDE OR SKIN BUFFER, LUIZA L 300.00 ANXIETY STATE UNSPECIFIED 02/22/2014 DANIEL ZUÑIGA, JOSE A V04.81 FLU SHOT 02/22/2014 DAVIE TANN, MARINA R V04.81 FLU SHOT 02/22/2014 DAVIE TANN, MARINA R V04.81 FLU SHOT 02/22/2014 CHELSEY TANN, LUIZA L V04.81 FLU SHOT 04/06/2014 DAVIE TANN, MARINA R 724.2 LUMBAGO 04/06/2014 DAVIE TANN, MARINA R 724.2 LUMBAGO 04/06/2014 CHELSEY ZUÑIGA, LUIZA L 724.2 LUMBAGO 05/24/2014 CHELSEY ZUÑIGA, LUIZA L 461.9 SINUSITIS ACUTE 11/19/2014 JUANJO GO, LUIS T Ot 780.60 FEVER, UNSPECIFIED 11/19/2014 JUANJO GO, LUIS T Ot 787.01 NAUSEA WITH VOMITING 11/19/2014 JUANJO GO, LUIS T Ot 787.03 VOMITING ALONE 11/19/2014 JUANJO GO, LUIS T Ot 789.03 ABDOMINAL PAIN, RIGHT LOWER QUADRANT 11/19/2014 JOSE SANCHEZ A DIGITAL MEDIA PRODUCER Ot 789.01 11/19/2014 CORNELIO SANCHEZYL A DIGITAL MEDIA PRODUCER Ot 789.01 11/19/2014 JACQUIE GO, BINA Shin Ot 564.89 11/19/2014 JACQUIE GO, BINA Shin Ot 569.3 11/19/2014 JACQUIE GO, BINA Shin Ot V72.84 12/14/2014 JOSE SANCHEZ A DIGITAL MEDIA PRODUCER Ot 789.01 12/14/2014 CORNELIO SNACHEZYL A DIGITAL MEDIA PRODUCER Ot 789.01 12/14/2014 JACQUIE GO, BINA Shin Ot 564.89 12/14/2014 BINA DHILLON MD Ot 569.3 12/14/2014 BINA DHILLON MD Ot V72.84 12/14/2014 MADL, LUIZA L DIGITAL MEDIA PRODUCER Ot 625.8 12/18/2014 MADL, LUIZA L DIGITAL MEDIA PRODUCER Ot 625.8 12/29/2014 DE LA TORRE DO, VENECIA C Ot 244.9 HYPOTHYROIDISM NOS 12/29/2014 DE LA TORRE DO, VENECIA C Ot 278.01 MORBID OBESITY 12/29/2014 DE LA TORRE DO, VENECIA C Ot 401.9 HYPERTENSION NOS 12/29/2014 DE LA TORRE DO, VENECIA C Ot 617.0 UTERINE ENDOMETRIOSIS 12/29/2014 DE LA TORRE DO, VENECIA C Ot 620.1 CORPUS LUTEUM CYST 12/29/2014 DE LA TORRE DO, VENECIA C Ot 620.8 NONINFL DIS OVA/ADNX NEC 12/29/2014 DE LA TORRE DO, VENECIA C Ot V58.69 OT MED,LT,CURRENT USE 12/29/2014 DE LA TORRE DO, VENECIA C Ot V85.42 BODY MASS INDEX 45.0-49.9, ADULT 01/02/2015 MADL, LUIZA L DIGITAL MEDIA PRODUCER Ot 625.8 01/12/2015 DE LA TORRE DO, VENECIA C Ot 620.2 01/12/2015 DE LA TORRE DO, VENECIA C Ot 626.8 01/12/2015 DE LA TORRE DO, VENECIA C Ot V72.63 01/12/2015 DE LA TORRE DO, VENECIA C Ot V72.81 01/12/2015 DE LA TORRE DO, VENECIA C Ot V74.8 02/21/2015 CORNELIO SANCHEZYL A DIGITAL MEDIA PRODUCER Ot 789.01 02/21/2015 CORNELIO SANCHEZYL A DIGITAL MEDIA PRODUCER Ot 789.01 02/21/2015 JACQUIE GO, BINA Shin Ot 564.89 02/21/2015 JACQUIE GO, BINA Shin Ot 569.3 02/21/2015 BINA DHILLON MD Ot V72.84 02/21/2015 MADL, LUIZA L DIGITAL MEDIA PRODUCER Ot 625.8 02/21/2015 MADL, LUIZA L DIGITAL MEDIA PRODUCER Ot 625.8 02/21/2015 DE LA TORRE DO, VENECIA C Ot 620.2 02/21/2015 DE LA TORRE DO, VENECIA C Ot 626.8 02/21/2015 DE LA TORRE DO, VENECIA C Ot V72.63 02/21/2015 DE LA TORRE DO, VENECIA C Ot V72.81 02/21/2015 DE LA TORRE DO, VENECIA C Ot V74.8 04/12/2015 RAJOTTE, JOSE A DIGITAL MEDIA PRODUCER Ot 789.01 04/12/2015 RAJOTTE, JOSE A DIGITAL MEDIA PRODUCER Ot 789.01 04/12/2015 JACQUIE GO, BINA Shin Ot 564.89 04/12/2015 JACQUIE GO, BINA Shin Ot 569.3 04/12/2015 BINA DHILLON MD Ot V72.84 04/12/2015 MADL, LUIZA L DIGITAL MEDIA PRODUCER Ot 625.8 04/12/2015 MADL, LUIZA L DIGITAL MEDIA PRODUCER Ot 625.8 04/12/2015 DE LA TORRE DO, VENECIA C Ot 620.2 04/12/2015 DE LA TORRE DO, VENECIA C Ot 626.8 04/12/2015 DE LA TORRE DO, VENECIA C Ot V72.63 04/12/2015 DE LA TORRE DO, VENECIA C Ot V72.81 04/12/2015 DE LA TORRE DO, VENECIA C Ot V74.8 04/12/2015 DE LA TORRE DO, VENECIA C Ot M79.605 04/27/2015 MADL, LUIZA L DIGITAL MEDIA PRODUCER Ot I10 04/27/2015 MADL, LUIZA L DIGITAL MEDIA PRODUCER Ot Z87.898 05/07/2015 SHERITAOTTAshlie, JOSE A DIGITAL MEDIA PRODUCER Ot 789.01 05/07/2015 DANIEL, JOSE A DIGITAL MEDIA PRODUCER Ot 789.01 05/07/2015 JACQUIE GO, BINA Shin Ot 564.89 05/07/2015 JACQUIE GO, BINA Shin Ot 569.3 05/07/2015 JACQUIE GO, BINA Shin Ot V72.84 05/07/2015 MADL, LUIZA L DIGITAL MEDIA PRODUCER Ot 625.8 05/07/2015 MADL, LUIZA L DIGITAL MEDIA PRODUCER Ot 625.8 05/07/2015 DE LA TORRE DO, VENECIA C Ot 620.2 05/07/2015 DE LA TORRE DO, VENECIA C Ot 626.8 05/07/2015 DE LA TORRE DO, VENECIA C Ot V72.63 05/07/2015 DE LA TORRE DO, VENECIA C Ot V72.81 05/07/2015 DE LA TORRE DO, VENECIA C Ot V74.8 05/07/2015 DE LA TORRE DO, VENECIA C Ot M79.605 05/07/2015 MADL, LUIZA L DIGITAL MEDIA PRODUCER Ot I10 05/07/2015 MADL, LUIZA L DIGITAL MEDIA PRODUCER Ot Z87.898 05/08/2015 CORNELIO SANCHEZYL A DIGITAL MEDIA PRODUCER Ot 789.01 05/08/2015 CORNELIO SANCHEZYL A DIGITAL MEDIA PRODUCER Ot 789.01 05/08/2015 JACQUIE GO, BINA Shin Ot 564.89 05/08/2015 JACQUIE GO, BINA Shin Ot 569.3 05/08/2015 JACQUIE GO, BINA Shin Ot V72.84 05/08/2015 MADL, LUIZA L DIGITAL MEDIA PRODUCER Ot 625.8 05/08/2015 MADL, LUIZA L DIGITAL MEDIA PRODUCER Ot 625.8 05/08/2015 DE LA TORRE DO, VENECIA C Ot 620.2 05/08/2015 DE LA TORRE DO, VENECIA C Ot 626.8 05/08/2015 DE LA TORRE DO, VENECIA C Ot V72.63 05/08/2015 DE LA TORRE DO, VENECIA C Ot V72.81 05/08/2015 DE LA TORRE DO, VENECIA C Ot V74.8 05/08/2015 DE LA TORRE DO, VENECIA C Ot M79.605 05/08/2015 MADL, LUIZA L DIGITAL MEDIA PRODUCER Ot I10 05/08/2015 MADL, LUIZA L DIGITAL MEDIA PRODUCER Ot Z87.898 05/16/2015 JOSE SANCHEZ A DIGITAL MEDIA PRODUCER Ot 789.01 05/16/2015 SHERITAOTTAshlie JOSE A DIGITAL MEDIA PRODUCER Ot 789.01 05/16/2015 JACQUIE GO, BINA Shin Ot 564.89 05/16/2015 JACQUIE GO, BINA Shin Ot 569.3 05/16/2015 JACQUIE GO, BINA Shin Ot V72.84 05/16/2015 MADL, LUIZA L DIGITAL MEDIA PRODUCER Ot 625.8 05/16/2015 MADL, LUIZA L DIGITAL MEDIA PRODUCER Ot 625.8 05/16/2015 DE LA TORRE DO, VENECIA C Ot 620.2 05/16/2015 DE LA TORRE DO, VENECIA C Ot 626.8 05/16/2015 DE LA TORRE DO, VENECIA C Ot V72.63 05/16/2015 DE LA TORRE DO, VENECIA C Ot V72.81 05/16/2015 DE LA TORRE DO, VENECIA C Ot V74.8 05/16/2015 DE LA TORRE DO, VENECIA C Ot M79.605 05/16/2015 MADL, LUIZA L DIGITAL MEDIA PRODUCER Ot I10 05/16/2015 MADL, LUIZA L DIGITAL MEDIA PRODUCER Ot Z87.898 05/16/2015 MADL, LUIZA L DIGITAL MEDIA PRODUCER Ot M54.5 07/02/2015 MADL, LUIZA L DIGITAL MEDIA PRODUCER Ot E04.9 07/02/2015 MADL, LUIZA L DIGITAL MEDIA PRODUCER Ot R00.0 07/10/2015 DANIEL JOSE A DIGITAL MEDIA PRODUCER Ot 789.01 07/10/2015 RAJOTTAshlie JOSE A DIGITAL MEDIA PRODUCER Ot 789.01 07/10/2015 JACQUIE GO, BINA Shin Ot 564.89 07/10/2015 JACQUIE GO, BINA Shin Ot 569.3 07/10/2015 BINA DHILLON MD Ot V72.84 07/10/2015 MADL, LUIZA L DIGITAL MEDIA PRODUCER Ot 625.8 07/10/2015 MADL, LUIZA L DIGITAL MEDIA PRODUCER Ot 625.8 07/10/2015 DE LA TORRE DO, VENECIA C Ot 620.2 07/10/2015 DE LA TORRE DO, VENECIA C Ot 626.8 07/10/2015 DE LA TORRE DO, VENECIA C Ot V72.63 07/10/2015 DE LA TORRE DO, VENECIA C Ot V72.81 07/10/2015 DE LA TORRE DO, VENECIA C Ot V74.8 07/10/2015 DE LA TORRE DO, VENECIA C Ot M79.605 07/10/2015 MADL, LUIZA L DIGITAL MEDIA PRODUCER Ot I10 07/10/2015 MADL, LUIZA L DIGITAL MEDIA PRODUCER Ot Z87.898 07/10/2015 CHARLEY GO, KHLOE Ot K21.9 07/10/2015 MADL, LUIZA L DIGITAL MEDIA PRODUCER Ot M54.5 07/10/2015 MADL, LUIZA L DIGITAL MEDIA PRODUCER Ot M54.5 07/10/2015 MADL, LUIZA L DIGITAL MEDIA PRODUCER Ot M54.5 07/10/2015 MADL, LUIZA L DIGITAL MEDIA PRODUCER Ot E04.9 07/10/2015 MADL, LUIZA L DIGITAL MEDIA PRODUCER Ot R00.0 07/11/2015 SAMARA GO, VAISHNAVI Ibrahim Ot I08.1 07/14/2015 MADL, LUIZA L DIGITAL MEDIA PRODUCER Ot M54.5 07/25/2015 KHLOE WHITEHEAD MD Ot K21.9 08/24/2015 MADL, LUIZA L DIGITAL MEDIA PRODUCER Ot E04.9 NONTOXIC GOITER, UNSPECIFIED 08/24/2015 MADL, LUIZA L DIGITAL MEDIA PRODUCER Ot R00.0 TACHYCARDIA, UNSPECIFIED 08/24/2015 MADL, LUIZA L DIGITAL MEDIA PRODUCER Ot M54.5 LOW BACK PAIN 08/27/2015 KHLOE WHITEHEAD MD Ot K21.9 GASTRO-ESOPHAGEAL REFLUX DISEASE WITHOUT 08/27/2015 KHLOE WHITEHEAD MD Ot K21.9 GASTRO-ESOPHAGEAL REFLUX DISEASE WITHOUT 08/27/2015 MADL, LUIZA L DIGITAL MEDIA PRODUCER Ot M54.5 LOW BACK PAIN 08/27/2015 MADL, LUIZA L DIGITAL MEDIA PRODUCER Ot M54.5 LOW BACK PAIN 08/27/2015 MADL, LUIZA L DIGITAL MEDIA PRODUCER Ot E04.9 NONTOXIC GOITER, UNSPECIFIED 08/27/2015 MADL, LUIZA L DIGITAL MEDIA PRODUCER Ot R00.0 TACHYCARDIA, UNSPECIFIED 08/27/2015 MADL, LUIZA L DIGITAL MEDIA PRODUCER Ot E04.9 NONTOXIC GOITER, UNSPECIFIED 08/27/2015 MADL, LUIZA L DIGITAL MEDIA PRODUCER Ot R00.0 TACHYCARDIA, UNSPECIFIED 08/27/2015 SAMARA GO, VAISHNAVI Ibrahim Ot I08.1 RHEUMATIC DISORDERS OF BOTH MITRAL AND T 08/27/2015 MADL, LUIZA L DIGITAL MEDIA PRODUCER Ot I10 ESSENTIAL (PRIMARY) HYPERTENSION 09/04/2015 KHLOE WHITEHEAD MD Ot E66.01 MORBID (SEVERE) OBESITY DUE TO EXCESS CA 09/04/2015 KHLOE WHITEHEAD MD, Ot Z01.812 ENCOUNTER FOR PREPROCEDURAL LABORATORY E 09/04/2015 KHLOE WHITEHEAD MD, Ot Z11.2 ENCOUNTER FOR SCREENING FOR OTHER BACTER 09/04/2015 KHLOE WHITEHEAD MD, Ot Z68.42 BODY MASS INDEX (BMI) 45.0-49.9, ADULT 09/05/2015 KHLOE WHITEHEAD MD, Ot E66.01 MORBID (SEVERE) OBESITY DUE TO EXCESS CA 09/05/2015 KHLOE WHITEHEAD MD, Ot Z01.812 ENCOUNTER FOR PREPROCEDURAL LABORATORY E 09/05/2015 KHLOE WHITEHEAD MD, Ot Z11.2 ENCOUNTER FOR SCREENING FOR OTHER BACTER 09/05/2015 KHLOE WHITEHEAD MD, Ot Z68.42 BODY MASS INDEX (BMI) 45.0-49.9, ADULT 09/14/2015 KHLOE WHITEHEAD MD, Ot E66.01 MORBID (SEVERE) OBESITY DUE TO EXCESS CA 09/14/2015 KHLOE WHITEHEAD MD Ot E88.81 METABOLIC SYNDROME 09/14/2015 KHLOE WHITEHEAD MD Ot F32.9 MAJOR DEPRESSIVE DISORDER, SINGLE EPISOD 09/14/2015 KHLOE WHITEHEAD MD, Ot F41.9 ANXIETY DISORDER, UNSPECIFIED 09/14/2015 KHLOE WHITEHEAD MD, Ot G47.33 OBSTRUCTIVE SLEEP APNEA (ADULT) (PEDIATR 09/14/2015 KHLOE WHITEHEAD MD Ot I10 ESSENTIAL (PRIMARY) HYPERTENSION 09/14/2015 KHLOE WHITEHEAD MD, Ot K21.9 GASTRO-ESOPHAGEAL REFLUX DISEASE WITHOUT 09/14/2015 KHLOE WHITEHEAD MD, Ot Z68.42 BODY MASS INDEX (BMI) 45.0-49.9, ADULT 09/23/2015 ALEXA TAYLOR APRN Ot J90 PLEURAL EFFUSION, NOT ELSEWHERE CLASSIFI 09/23/2015 ALEXA TAYLOR APRN Ot J98.11 ATELECTASIS 09/23/2015 ALEXA TAYLOR APRN Ot Z98.84 BARIATRIC SURGERY STATUS 09/26/2015 ALEXA TAYLOR APRN Ot J90 PLEURAL EFFUSION, NOT ELSEWHERE CLASSIFI 09/26/2015 ALEXA TAYLOR APRN Ot J98.11 ATELECTASIS 09/26/2015 ALEXA TAYLOR APRN Ot Z98.84 BARIATRIC SURGERY STATUS 09/29/2015 JUANJO GO, LUIS Puri Ot J18.9 PNEUMONIA, UNSPECIFIED ORGANISM 09/29/2015 JUANJO GO, LUIS Puri Ot R09.02 HYPOXEMIA 09/29/2015 JUANJO GO, LUIS Puri Ot R50.9 FEVER, UNSPECIFIED 10/03/2015 SHERITAORALJOSE Sheron DIGITAL MEDIA PRODUCER Ot 789.01 ABDOMINAL PAIN, RIGHT UPPER QUADRANT 10/03/2015 JOSE SANCHEZ DIGITAL MEDIA PRODUCER Ot 789.01 ABDOMINAL PAIN, RIGHT UPPER QUADRANT 10/03/2015 JACQUIE GO, BINA Shin Ot 564.89 OTH FUNCT DISORDERS/INTESTINE 10/03/2015 JACQUIE GO, BINA Shin Ot 569.3 RECTAL ANAL HEMORRHAGE 10/03/2015 JACQUIE GO, BINA Shin Ot V72.84 EXAM PRE-OPERATIVE NOS 10/03/2015 ASHISH BARBOSAA L DIGITAL MEDIA PRODUCER Ot 625.8 FEM GENITAL SYMPTOMS NEC 10/03/2015 BEN BARBOSANYA L DIGITAL MEDIA PRODUCER Ot 625.8 FEM GENITAL SYMPTOMS NEC 10/03/2015 VENECIA DE LA TORRE DO Ot 620.2 OVARIAN CYST NEC/NOS 10/03/2015 VENECIA DE LA TORRE DO Ot 626.8 MENSTRUAL DISORDER NEC 10/03/2015 VENECIA DE LA TORRE DO Ot V72.63 PRE-PROCEDURAL LABORATORY EXAMINATION 10/03/2015 VENECIA DE LA TORRE DO Ot V72.81 [id number] CARDIOVASCULAR 10/03/2015 VENECIA DE LA TORRE DO Ot V74.8 SCREEN-BACTERIAL DIS NEC 10/03/2015 VENECIA DE LA TORRE DO Ot M79.605 PAIN IN LEFT LEG 10/03/2015 ASHISH BARBOSAA L DIGITAL MEDIA PRODUCER Ot I10 ESSENTIAL (PRIMARY) HYPERTENSION 10/03/2015 CAIO BARBOSAWNYA L DIGITAL MEDIA PRODUCER Ot Z87.898 PERSONAL HISTORY OF OTHER SPECIFIED COND 10/03/2015 CHARLEY GO, KHLOE Ot K21.9 GASTRO-ESOPHAGEAL REFLUX DISEASE WITHOUT 10/03/2015 CHELSEY LUIZA L DIGITAL MEDIA PRODUCER Ot M54.5 LOW BACK PAIN 10/03/2015 CHELSEY LUIZA L DIGITAL MEDIA PRODUCER Ot M54.5 LOW BACK PAIN 10/03/2015 LUIZA BARBOSA DIGITAL MEDIA PRODUCER Ot M54.5 LOW BACK PAIN 10/03/2015 LUIZA BARBOSA DIGITAL MEDIA PRODUCER Ot E04.9 NONTOXIC GOITER, UNSPECIFIED 10/03/2015 LUIZA BARBOSA DIGITAL MEDIA PRODUCER Ot R00.0 TACHYCARDIA, UNSPECIFIED 10/03/2015 SAMARA GO, VAISHNAVI Ibrahim Ot I08.1 RHEUMATIC DISORDERS OF BOTH MITRAL AND T 10/03/2015 CHELSEY LUIZA L DIGITAL MEDIA PRODUCER Ot I10 ESSENTIAL (PRIMARY) HYPERTENSION 10/06/2015 KHLOE WHITEHEAD MD Ot E88.81 METABOLIC SYNDROME 10/06/2015 KHLOE WHITEHEAD MD Ot G47.30 SLEEP APNEA, UNSPECIFIED 10/06/2015 KHLOE WHITEHEAD MD Ot I10 ESSENTIAL (PRIMARY) HYPERTENSION 10/06/2015 KHLOE WHITEHEAD MD Ot J18.9 PNEUMONIA, UNSPECIFIED ORGANISM 10/06/2015 KHLOE WHITEHEAD MD Ot J98.11 ATELECTASIS 10/06/2015 KHLOE WHITEHEAD MD Ot K21.9 GASTRO-ESOPHAGEAL REFLUX DISEASE WITHOUT 10/06/2015 KHLOE WHITEHEAD MD Ot T81.4XXA INFECTION FOLLOWING A PROCEDURE, INITIAL 10/06/2015 KHLOE WHITEHEAD MD Ot Z98.84 BARIATRIC SURGERY STATUS 10/08/2015 KHLOE WHITEHEAD MD Ot E88.81 METABOLIC SYNDROME 10/08/2015 KHLOE WHITEHEAD MD Ot G47.30 SLEEP APNEA, UNSPECIFIED 10/08/2015 KHLOE WHITEHEAD MD Ot I10 ESSENTIAL (PRIMARY) HYPERTENSION 10/08/2015 KHLOE WHITEHEAD MD Ot J18.9 PNEUMONIA, UNSPECIFIED ORGANISM 10/08/2015 KHLOE WHITEHEAD MD Ot J98.11 ATELECTASIS 10/08/2015 KHLOE WHITEHEAD MD Ot K21.9 GASTRO-ESOPHAGEAL REFLUX DISEASE WITHOUT 10/08/2015 KHLOE WHITEHEAD MD Ot T81.4XXA INFECTION FOLLOWING A PROCEDURE, INITIAL 10/08/2015 KHLOE WHITEHEAD MD Ot Z98.84 BARIATRIC SURGERY STATUS 10/10/2015 ALEXA TAYLOR APRN Ot J90 PLEURAL EFFUSION, NOT ELSEWHERE CLASSIFI 10/10/2015 ALEXA TAYLOR APRN Ot J98.11 ATELECTASIS 10/10/2015 TAYLORALEXA LOWE Facundo HIDE OR SKIN BUFFER Ot Z98.84 BARIATRIC SURGERY STATUS 10/10/2015 KHLOE WHITEHEAD MD Ot E88.81 METABOLIC SYNDROME 10/10/2015 KHLOE WHITEHEAD MD Ot G47.30 SLEEP APNEA, UNSPECIFIED 10/10/2015 KHLOE WHITEHEAD MD Ot I10 ESSENTIAL (PRIMARY) HYPERTENSION 10/10/2015 KHLOE WHITEHEAD MD Ot J18.9 PNEUMONIA, UNSPECIFIED ORGANISM 10/10/2015 KHLOE WHITEHEAD MD Ot J98.11 ATELECTASIS 10/10/2015 KHLOE WHITEHEAD MD Ot K21.9 GASTRO-ESOPHAGEAL REFLUX DISEASE WITHOUT 10/10/2015 KHLOE WHITEHEAD MD Ot T81.4XXA INFECTION FOLLOWING A PROCEDURE, INITIAL 10/10/2015 KHLOE WHITEHEAD MD Ot Z98.84 BARIATRIC SURGERY STATUS 10/11/2015 KHLOE WHITEHEAD MD Ot E88.81 METABOLIC SYNDROME 10/11/2015 KHLOE WHITEHEAD MD Ot G47.30 SLEEP APNEA, UNSPECIFIED 10/11/2015 KHLOE WHITEHEAD MD Ot I10 ESSENTIAL (PRIMARY) HYPERTENSION 10/11/2015 KHLOE WHITEHEAD MD Ot J18.9 PNEUMONIA, UNSPECIFIED ORGANISM 10/11/2015 KHLOE WHITEHEAD MD Ot J98.11 ATELECTASIS 10/11/2015 KHLOE WHITEHEAD MD Ot K21.9 GASTRO-ESOPHAGEAL REFLUX DISEASE WITHOUT 10/11/2015 KHLOE WHITEHEAD MD Ot T81.4XXA INFECTION FOLLOWING A PROCEDURE, INITIAL 10/11/2015 KHLOE WHITEHEAD MD Ot Z98.84 BARIATRIC SURGERY STATUS 10/12/2015 KHLOE WHITEHEAD MD Ot E88.81 METABOLIC SYNDROME 10/12/2015 KHLOE WHITEHEAD MD Ot G47.30 SLEEP APNEA, UNSPECIFIED 10/12/2015 KHLOE WHITEHEAD MD Ot I10 ESSENTIAL (PRIMARY) HYPERTENSION 10/12/2015 KHLOE WHITEHEAD MD Ot J18.9 PNEUMONIA, UNSPECIFIED ORGANISM 10/12/2015 KHLOE WHITEHEAD MD Ot J98.11 ATELECTASIS 10/12/2015 KHLOE WHITEHEAD MD Ot K21.9 GASTRO-ESOPHAGEAL REFLUX DISEASE WITHOUT 10/12/2015 KHLOE WHITEHEAD MD Ot T81.4XXA INFECTION FOLLOWING A PROCEDURE, INITIAL 10/12/2015 KHLOE WHITEHEAD MD Ot Z98.84 BARIATRIC SURGERY STATUS 10/13/2015 KHLOE WHITEHEAD MD Ot E88.81 METABOLIC SYNDROME 10/13/2015 KHLOE WHITEHEAD MD Ot G47.30 SLEEP APNEA, UNSPECIFIED 10/13/2015 KHLOE WHITEHEAD MD Ot I10 ESSENTIAL (PRIMARY) HYPERTENSION 10/13/2015 KHLOE WHITEHEAD MD Ot J18.9 PNEUMONIA, UNSPECIFIED ORGANISM 10/13/2015 KHLOE WHITEHEAD MD Ot J98.11 ATELECTASIS 10/13/2015 KHLOE WHITEHEAD MD Ot K21.9 GASTRO-ESOPHAGEAL REFLUX DISEASE WITHOUT 10/13/2015 KHLOE WHITEHEAD MD Ot T81.4XXA INFECTION FOLLOWING A PROCEDURE, INITIAL 10/13/2015 KHLOE WHITEHEAD MD Ot Z98.84 BARIATRIC SURGERY STATUS 2015 KHLOE WHITEHEAD MD Ot E88.81 METABOLIC SYNDROME 2015 KHLOE WHITEHEAD MD Ot G47.30 SLEEP APNEA, UNSPECIFIED 2015 KHLOE WHITEHEAD MD Ot I10 ESSENTIAL (PRIMARY) HYPERTENSION 2015 KHLOE WHITEHEAD MD Ot J18.9 PNEUMONIA, UNSPECIFIED ORGANISM 2015 KHLOE WHITEHEAD MD Ot J98.11 ATELECTASIS 2015 KHLOE WHITEHEAD MD Ot K21.9 GASTRO-ESOPHAGEAL REFLUX DISEASE WITHOUT 2015 KHLOE WHITEHEAD MD Ot T81.4XXA INFECTION FOLLOWING A PROCEDURE, INITIAL 2015 KHLOE WHITEHEAD MD Ot Z98.84 BARIATRIC SURGERY STATUS 10/15/2015 KHLOE WHITEHEAD MD Ot E88.81 METABOLIC SYNDROME 10/15/2015 KHLOE WHITEHEAD MD Ot G47.30 SLEEP APNEA, UNSPECIFIED 10/15/2015 KHLOE WHITEHEAD MD Ot I10 ESSENTIAL (PRIMARY) HYPERTENSION 10/15/2015 KHLOE WHITEHEAD MD Ot J18.9 PNEUMONIA, UNSPECIFIED ORGANISM 10/15/2015 KHLOE WHITEHEAD MD Ot J98.11 ATELECTASIS 10/15/2015 KHLOE WHITEHEAD MD Ot K21.9 GASTRO-ESOPHAGEAL REFLUX DISEASE WITHOUT 10/15/2015 KHLOE WHITEHEAD MD Ot T81.4XXA INFECTION FOLLOWING A PROCEDURE, INITIAL 10/15/2015 KHLOE WHITEHEAD MD Ot Z98.84 BARIATRIC SURGERY STATUS 10/16/2015 KHLOE WHITEHEAD MD Ot E88.81 METABOLIC SYNDROME 10/16/2015 KHLOE WHITEHEAD MD Ot G47.30 SLEEP APNEA, UNSPECIFIED 10/16/2015 KHLOE WHITEHEAD MD Ot I10 ESSENTIAL (PRIMARY) HYPERTENSION 10/16/2015 KHLOE WHITEHEAD MD Ot J18.9 PNEUMONIA, UNSPECIFIED ORGANISM 10/16/2015 KHLOE WHITEHEAD MD Ot J98.11 ATELECTASIS 10/16/2015 KHLOE WHITEHEAD MD Ot K21.9 GASTRO-ESOPHAGEAL REFLUX DISEASE WITHOUT 10/16/2015 KHLOE WHITEHEAD MD Ot T81.4XXA INFECTION FOLLOWING A PROCEDURE, INITIAL 10/16/2015 KHLOE WHITEHEAD MD Ot Z98.84 BARIATRIC SURGERY STATUS 10/17/2015 KHLOE WHITEHEAD MD Ot E88.81 METABOLIC SYNDROME 10/17/2015 KHLOE WHITEHEAD MD Ot G47.30 SLEEP APNEA, UNSPECIFIED 10/17/2015 KHLOE WHITEHEAD MD Ot I10 ESSENTIAL (PRIMARY) HYPERTENSION 10/17/2015 KHLOE WHITEHEAD MD Ot J18.9 PNEUMONIA, UNSPECIFIED ORGANISM 10/17/2015 KHLOE WHITEHEAD MD Ot J98.11 ATELECTASIS 10/17/2015 KHLOE WHITEHEAD MD Ot K21.9 GASTRO-ESOPHAGEAL REFLUX DISEASE WITHOUT 10/17/2015 KHLOE WHITEHEAD MD Ot T81.4XXA INFECTION FOLLOWING A PROCEDURE, INITIAL 10/17/2015 KHLOE WHITEHEAD MD Ot Z98.84 BARIATRIC SURGERY STATUS 10/18/2015 KHLOE WHITEHEAD MD Ot E88.81 METABOLIC SYNDROME 10/18/2015 KHLOE WHITEHEAD MD Ot G47.30 SLEEP APNEA, UNSPECIFIED 10/18/2015 KHLOE WHITEHEAD MD Ot I10 ESSENTIAL (PRIMARY) HYPERTENSION 10/18/2015 KHLOE WHITEHEAD MD Ot J18.9 PNEUMONIA, UNSPECIFIED ORGANISM 10/18/2015 KHLOE WHITEHEAD MD Ot J98.11 ATELECTASIS 10/18/2015 KHLOE WHITEHEAD MD Ot K21.9 GASTRO-ESOPHAGEAL REFLUX DISEASE WITHOUT 10/18/2015 KHLOE WHITEHEAD MD, Ot T81.4XXA INFECTION FOLLOWING A PROCEDURE, INITIAL 10/18/2015 KHLOE WHITEHEAD MD, Ot Z98.84 BARIATRIC SURGERY STATUS 10/19/2015 KHLOE WHITEHEAD MD Ot E88.81 METABOLIC SYNDROME 10/19/2015 KHLOE WHITEHEAD MD Ot G47.30 SLEEP APNEA, UNSPECIFIED 10/19/2015 KHLOE WHITEHEAD MD Ot I10 ESSENTIAL (PRIMARY) HYPERTENSION 10/19/2015 KHLOE WHITEHEAD MD Ot J18.9 PNEUMONIA, UNSPECIFIED ORGANISM 10/19/2015 KHLOE WHITEHEAD MD Ot J98.11 ATELECTASIS 10/19/2015 KHLOE WHITEHEAD MD, Ot K21.9 GASTRO-ESOPHAGEAL REFLUX DISEASE WITHOUT 10/19/2015 KHLOE WHITEHEAD MD, Ot T81.4XXA INFECTION FOLLOWING A PROCEDURE, INITIAL 10/19/2015 KHLOE WHITEHEAD MD, Ot Z98.84 BARIATRIC SURGERY STATUS 10/19/2015 KHLOE WHITEHEAD MD Ot B37.9 CANDIDIASIS, UNSPECIFIED 10/19/2015 KHLOE WHITEHEAD MD Ot D64.9 ANEMIA, UNSPECIFIED 10/19/2015 KHLOE WHITEHEAD MD Ot E88.81 METABOLIC SYNDROME 10/19/2015 KHLOE WHITEHEAD MD Ot G47.30 SLEEP APNEA, UNSPECIFIED 10/19/2015 KHLOE WHITEHEAD MD Ot I10 ESSENTIAL (PRIMARY) HYPERTENSION 10/19/2015 KHLOE WHITEHEAD MD Ot J18.9 PNEUMONIA, UNSPECIFIED ORGANISM 10/19/2015 KHLOE WHITEHEAD MD Ot J98.11 ATELECTASIS 10/19/2015 KHLOE WHITEHEAD MD, Ot K21.9 GASTRO-ESOPHAGEAL REFLUX DISEASE WITHOUT 10/19/2015 KHLOE WHITEHAED MD Ot 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 10/19/2015 KHLOE WHITEHEAD MD, Ot T81.4XXA INFECTION FOLLOWING A PROCEDURE, INITIAL 10/19/2015 KHLOE WHITEHEAD MD, Ot Z98.84 BARIATRIC SURGERY STATUS 10/24/2015 MADL, LUIZA L DIGITAL MEDIA PRODUCER Ot M54.5 LOW BACK PAIN 10/24/2015 LUIZA BARBOSA DIGITAL MEDIA PRODUCER Ot M54.5 LOW BACK PAIN 10/24/2015 CHARLEY GO, KHLOE Ot K21.9 GASTRO-ESOPHAGEAL REFLUX DISEASE WITHOUT 10/24/2015 LUIZA BARBOSA DIGITAL MEDIA PRODUCER Ot M54.5 LOW BACK PAIN 10/24/2015 LUIZA BARBOSA DIGITAL MEDIA PRODUCER Ot E04.9 NONTOXIC GOITER, UNSPECIFIED 10/24/2015 NELSONL, LUIZA Tijerina DIGITAL MEDIA PRODUCER Ot R00.0 TACHYCARDIA, UNSPECIFIED 10/24/2015 SAMARA GO, VAISHNAVI Ibrahim Ot I08.1 RHEUMATIC DISORDERS OF BOTH MITRAL AND T 10/24/2015 CHELSEY, LUIZA Tijerina DIGITAL MEDIA PRODUCER Ot I10 ESSENTIAL (PRIMARY) HYPERTENSION 11/21/2015 SHERITADHEERAJJOSE Dailey DIGITAL MEDIA PRODUCER Ot 789.01 ABDOMINAL PAIN, RIGHT UPPER QUADRANT 11/21/2015 JOSE SANCHEZ A DIGITAL MEDIA PRODUCER Ot 789.01 ABDOMINAL PAIN, RIGHT UPPER QUADRANT 11/21/2015 JACQUIE GO, BINA Shin Ot 564.89 OTH FUNCT DISORDERS/INTESTINE 11/21/2015 JACQUIE GO, BINA Shin Ot 569.3 RECTAL ANAL HEMORRHAGE 11/21/2015 JACQUIE GO, BINA Shin Ot V72.84 EXAM PRE-OPERATIVE NOS 11/21/2015 LUIZA BARBOSA DIGITAL MEDIA PRODUCER Ot 625.8 FEM GENITAL SYMPTOMS NEC 11/21/2015 LUIZA BARBOSA DIGITAL MEDIA PRODUCER Ot 625.8 FEM GENITAL SYMPTOMS NEC 11/21/2015 VENECIA DE LA TORRE DO Ot 620.2 OVARIAN CYST NEC/NOS 11/21/2015 VENECIA DE LA TORRE DO Ot 626.8 MENSTRUAL DISORDER NEC 11/21/2015 VENECIA DE LA TORRE DO Ot V72.63 PRE-PROCEDURAL LABORATORY EXAMINATION 11/21/2015 VENECIA DE LA TORRE DO Ot V72.81 MORL-RJC-FZWGYWNOR CARDIOVASCULAR 11/21/2015 VENECIA DE LA TORRE DO Ot V74.8 SCREEN-BACTERIAL DIS NEC 11/21/2015 VENECIA DE LA TORRE DO Ot M79.605 PAIN IN LEFT LEG 11/21/2015 LUIZA BARBOSA DIGITAL MEDIA PRODUCER Ot I10 ESSENTIAL (PRIMARY) HYPERTENSION 11/21/2015 MADL, LUIZA L DIGITAL MEDIA PRODUCER Ot Z87.898 PERSONAL HISTORY OF OTHER SPECIFIED COND 11/21/2015 CHARLEY GO, KHLOE Ot K21.9 GASTRO-ESOPHAGEAL REFLUX DISEASE WITHOUT 11/21/2015 MADL, LUIZA L DIGITAL MEDIA PRODUCER Ot M54.5 LOW BACK PAIN 11/21/2015 MADL, LUIZA L DIGITAL MEDIA PRODUCER Ot M54.5 LOW BACK PAIN 11/21/2015 MADL, LUIZA L DIGITAL MEDIA PRODUCER Ot M54.5 LOW BACK PAIN 11/21/2015 MADL, LUIZA L DIGITAL MEDIA PRODUCER Ot E04.9 NONTOXIC GOITER, UNSPECIFIED 11/21/2015 MADL, LUIZA L DIGITAL MEDIA PRODUCER Ot R00.0 TACHYCARDIA, UNSPECIFIED 11/21/2015 SAMARA GO, VAISHNAVI Ibrahim Ot I08.1 RHEUMATIC DISORDERS OF BOTH MITRAL AND T 11/21/2015 MADL, LUIZA L DIGITAL MEDIA PRODUCER Ot I10 ESSENTIAL (PRIMARY) HYPERTENSION 11/22/2015 MADL, LUIZA L DIGITAL MEDIA PRODUCER Ot D73.3 ABSCESS OF SPLEEN 11/22/2015 MADL, LUIZA L DIGITAL MEDIA PRODUCER Ot Z87.01 PERSONAL HISTORY OF PNEUMONIA (RECURRENT 11/22/2015 MADL, LUIZA L DIGITAL MEDIA PRODUCER Ot Z98.89 OTHER SPECIFIED POSTPROCEDURAL STATES 11/28/2015 MADL, LUIZA L DIGITAL MEDIA PRODUCER Ot D73.3 ABSCESS OF SPLEEN 11/28/2015 MADL, LUIZA L DIGITAL MEDIA PRODUCER Ot Z98.89 OTHER SPECIFIED POSTPROCEDURAL STATES 11/30/2015 MADL, LUIZA L DIGITAL MEDIA PRODUCER Ot D73.3 ABSCESS OF SPLEEN 11/30/2015 MADL, LUIZA L DIGITAL MEDIA PRODUCER Ot Z87.01 PERSONAL HISTORY OF PNEUMONIA (RECURRENT 11/30/2015 MADL, LUIZA L DIGITAL MEDIA PRODUCER Ot Z98.89 OTHER SPECIFIED POSTPROCEDURAL STATES 02/04/2016 RAJOTTECORNELIOYL A DIGITAL MEDIA PRODUCER Ot 789.01 ABDOMINAL PAIN, RIGHT UPPER QUADRANT 02/04/2016 RAJCORNELIO MIXONYL A DIGITAL MEDIA PRODUCER Ot 789.01 ABDOMINAL PAIN, RIGHT UPPER QUADRANT 02/04/2016 JACQUIE GO, BINA Shin Ot 564.89 OTH FUNCT DISORDERS/INTESTINE 02/04/2016 BINA DHILLON MD Ot 569.3 RECTAL ANAL HEMORRHAGE 02/04/2016 JACQUIE GO, BINA Shin Ot V72.84 EXAM PRE-OPERATIVE NOS 02/04/2016 MADASHISH TijerinaA L DIGITAL MEDIA PRODUCER Ot 625.8 FEM GENITAL SYMPTOMS NEC 02/04/2016 MADBreezy, LUIZA L DIGITAL MEDIA PRODUCER Ot 625.8 FEM GENITAL SYMPTOMS NEC 02/04/2016 DE LA TORREVENECIA Napier DO Ot 620.2 OVARIAN CYST NEC/NOS 02/04/2016 DE LA TORREEVNECIA Napier DO Ot 626.8 MENSTRUAL DISORDER NEC 02/04/2016 VENECIA DE LA TORRE DO Ot V72.63 PRE-PROCEDURAL LABORATORY EXAMINATION 02/04/2016 DE LA TORREVENECIA Napier DO Ot V72.81 [id number] CARDIOVASCULAR 02/04/2016 VENECIA DE LA TORRE DO Ot V74.8 SCREEN-BACTERIAL DIS NEC 02/04/2016 VENECIA DE LA TORRE DO Ot M79.605 PAIN IN LEFT LEG 02/04/2016 MADL, LUIZA L DIGITAL MEDIA PRODUCER Ot I10 ESSENTIAL (PRIMARY) HYPERTENSION 02/04/2016 MADL, LUIZA L DIGITAL MEDIA PRODUCER Ot Z87.898 PERSONAL HISTORY OF OTHER SPECIFIED COND 02/04/2016 CHARLEY GO, KHLOE Ot K21.9 GASTRO-ESOPHAGEAL REFLUX DISEASE WITHOUT 02/04/2016 MADL, LUIZA L [employer] PRODUCER Ot M54.5 LOW BACK PAIN 02/04/2016 MADL, LUIZA L [employer]IA PRODUCER Ot M54.5 LOW BACK PAIN 02/04/2016 MADL, LUIZA L [employer] MEDIA PRODUCER Ot M54.5 LOW BACK PAIN 02/04/2016 MADL, LUIZA L [employer]IA PRODUCER Ot E04.9 NONTOXIC GOITER, UNSPECIFIED 02/04/2016 MADL, LUIZA L [employer] PRODUCER Ot R00.0 TACHYCARDIA, UNSPECIFIED 02/04/2016 SAMARA GO, VAISHNAVI Ibrahim Ot I08.1 RHEUMATIC DISORDERS OF BOTH MITRAL AND T 02/04/2016 MADL, LUIZA L [employer]IA PRODUCER Ot I10 ESSENTIAL (PRIMARY) HYPERTENSION 02/04/2016 MADL, LUIZA L [employer]IA PRODUCER Ot D73.3 ABSCESS OF SPLEEN 02/04/2016 MADL, LUIZA L [employer] PRODUCER Ot Z98.89 OTHER SPECIFIED POSTPROCEDURAL STATES 02/04/2016 MADL, LUIZA L [employer]IA PRODUCER Ot D73.3 ABSCESS OF SPLEEN 02/04/2016 LUIZA BARBOSA D[employer] MEDIA PRODUCER Ot Z87.01 PERSONAL HISTORY OF PNEUMONIA (RECURRENT 02/04/2016 LUIZA BARBOSA [employer] PRODUCER Ot Z98.89 OTHER SPECIFIED POSTPROCEDURAL STATES 02/04/2016 LUIZA BARBOSA [employer]IA PRODUCER Ot I10 ESSENTIAL (PRIMARY) HYPERTENSION 02/04/2016 LUIZA BARBOSA [employer]IA PRODUCER Ot R73.03 PREDIABETES 02/04/2016 LUIZA BARBOSA [employer] PRODUCER Ot Z98.84 BARIATRIC SURGERY STATUS 04/10/2016 JOSE SANCHEZ D[employer]ITAL MEDIA PRODUCER Ot 789.01 ABDOMINAL PAIN, RIGHT UPPER QUADRANT 04/10/2016 JOSE SANCHEZ [employer]IA PRODUCER Ot 789.01 ABDOMINAL PAIN, RIGHT UPPER QUADRANT 04/10/2016 JACQUIE GO, BINA Shin Ot 564.89 OTH FUNCT DISORDERS/INTESTINE 04/10/2016 BINA DHILLON MD Ot 569.3 RECTAL ANAL HEMORRHAGE 04/10/2016 JACQUIE GO, BINA Shin Ot V72.84 EXAM PRE-OPERATIVE NOS 04/10/2016 LUIZA BARBOSA [employer] PRODUCER Ot 625.8 FEM GENITAL SYMPTOMS NEC 04/10/2016 LUIZA BARBOSA [employer] PRODUCER Ot 625.8 FEM GENITAL SYMPTOMS NEC 04/10/2016 VENECIA DE LA TORRE DO Ot 620.2 OVARIAN CYST NEC/NOS 04/10/2016 VENECIA DE LA TORRE DO Ot 626.8 MENSTRUAL DISORDER NEC 04/10/2016 VENECIA DE LA TORRE DO Ot V72.63 PRE-PROCEDURAL LABORATORY EXAMINATION 04/10/2016 VENECIA DE LA TORRE DO Ot V72.81 [id number] CARDIOVASCULAR 04/10/2016 VENECIA DE LA TORRE DO Ot V74.8 SCREEN-BACTERIAL DIS NEC 04/10/2016 VENECIA DE LA TORRE DO Ot M79.605 PAIN IN LEFT LEG 04/10/2016 LUIZA BARBOSA D[employer] PRODUCER Ot I10 ESSENTIAL (PRIMARY) HYPERTENSION 04/10/2016 LUIZA BARBOSA [employer]IA PRODUCER Ot Z87.898 PERSONAL HISTORY OF OTHER SPECIFIED COND 04/10/2016 CHARLEY GO, KHLOE Ot K21.9 GASTRO-ESOPHAGEAL REFLUX DISEASE WITHOUT 04/10/2016 MADL, LUIZA L [employer] PRODUCER Ot M54.5 LOW BACK PAIN 04/10/2016 MADL, LUIZA L [employer]IA PRODUCER Ot M54.5 LOW BACK PAIN 04/10/2016 MADL, LUIZA L [employer] MEDIA PRODUCER Ot M54.5 LOW BACK PAIN 04/10/2016 MADL, LUIZA L [employer]IA PRODUCER Ot E04.9 NONTOXIC GOITER, UNSPECIFIED 04/10/2016 MADL, LUIZA L [employer] MEDIA PRODUCER Ot R00.0 TACHYCARDIA, UNSPECIFIED 04/10/2016 SAMARA GO, VAISHNAVI Ibrahim Ot I08.1 RHEUMATIC DISORDERS OF BOTH MITRAL AND T 04/10/2016 MADL, LUIZA L [employer]IA PRODUCER Ot I10 ESSENTIAL (PRIMARY) HYPERTENSION 04/10/2016 NELSONL, LUIZA L D[employer] MEDIA PRODUCER Ot D73.3 ABSCESS OF SPLEEN 04/10/2016 MADL, LUIZA L [employer] MEDIA PRODUCER Ot Z98.89 OTHER SPECIFIED POSTPROCEDURAL STATES 04/10/2016 MADL, LUIZA L [employer] MEDIA PRODUCER Ot D73.3 ABSCESS OF SPLEEN 04/10/2016 MADL, LUIZA L [employer] MEDIA PRODUCER Ot Z87.01 PERSONAL HISTORY OF PNEUMONIA (RECURRENT 04/10/2016 MADL, ULIZA L D[employer] MEDIA PRODUCER Ot Z98.89 OTHER SPECIFIED POSTPROCEDURAL STATES 04/10/2016 MADL, LUIZA L D[employer] MEDIA PRODUCER Ot I10 ESSENTIAL (PRIMARY) HYPERTENSION 04/10/2016 CHELSEYCAIOLUIZA L DIGITAL MEDIA PRODUCER Ot R73.03 PREDIABETES 04/10/2016 CHELSEY LUIZA L D[employer] MEDIA PRODUCER Ot Z98.84 BARIATRIC SURGERY STATUS 04/10/2016 BEN BARBOSANYA L [employer] MEDIA PRODUCER Ot E04.1 NONTOXIC SINGLE THYROID NODULE 04/10/2016 OKSANA GREEN MD Ot G47.33 OBSTRUCTIVE SLEEP APNEA (ADULT) (PEDIATR 04/10/2016 OKSANA GREEN MD Ot J35.1 HYPERTROPHY OF TONSILS 04/10/2016 OKSANA GREEN MD Ot J35.8 OTHER CHRONIC DISEASES OF TONSILS AND AD 04/10/2016 OKSANA GREEN MD Ot Z01.818 ENCOUNTER FOR OTHER PREPROCEDURAL EXAMIN 04/10/2016 OKSANA GREEN MD Ot J35.01 CHRONIC TONSILLITIS 04/10/2016 OKSANA GREEN MD Ot J35.8 OTHER CHRONIC DISEASES OF TONSILS AND AD 04/11/2016 OKSANA GREEN MD Ot J35.01 CHRONIC TONSILLITIS 04/11/2016 OKSANA GREEN MD Ot J35.8 OTHER CHRONIC DISEASES OF TONSILS AND AD 04/16/2016 OKSANA GREEN MD Ot J35.01 CHRONIC TONSILLITIS 04/16/2016 OKSANA GREEN MD Ot J35.8 OTHER CHRONIC DISEASES OF TONSILS AND AD 04/17/2016 OKSANA GREEN MD Ot J35.01 CHRONIC TONSILLITIS 04/17/2016 OKSANA GREEN MD Ot J35.8 OTHER CHRONIC DISEASES OF TONSILS AND AD 05/16/2016 LUIZA BARBOSA D[employer] MEDIA PRODUCER Ot G43.011 MIGRAINE WITHOUT AURA, INTRACTABLE, WITH 05/20/2016 JOSE SANCHEZ D[employer] MEDIA PRODUCER Ot 789.01 ABDOMINAL PAIN, RIGHT UPPER QUADRANT 05/20/2016 JOSE SANCHEZ D[employer] MEDIA PRODUCER Ot 789.01 ABDOMINAL PAIN, RIGHT UPPER QUADRANT 05/20/2016 BINA DHILLON MD Ot 564.89 OTH FUNCT DISORDERS/INTESTINE 05/20/2016 BINA DHILLON MD Ot 569.3 RECTAL ANAL HEMORRHAGE 05/20/2016 BINA DHILLON MD Ot V72.84 EXAM PRE-OPERATIVE NOS 05/20/2016 LUIZA BARBOSA D[employer]IA PRODUCER Ot 625.8 FEM GENITAL SYMPTOMS NEC 05/20/2016 LUIZA BARBOSA D[employer] MEDIA PRODUCER Ot 625.8 FEM GENITAL SYMPTOMS NEC 05/20/2016 VENECIA DE LA TORRE DO Ot 620.2 OVARIAN CYST NEC/NOS 05/20/2016 VENECIA DE LA TORRE DO Ot 626.8 MENSTRUAL DISORDER NEC 05/20/2016 VENECIA DE LA TORRE DO Ot V72.63 PRE-PROCEDURAL LABORATORY EXAMINATION 05/20/2016 VENECIA DE LA TORRE DO Ot V72.81 IRVI-CNG-CBUIDHATK CARDIOVASCULAR 05/20/2016 VENECIA DE LA TORRE DO Ot V74.8 SCREEN-BACTERIAL DIS NEC 05/20/2016 VENECIA DE LA TORRE DO Ot M79.605 PAIN IN LEFT LEG 05/20/2016 LUIZA BARBOSA DIGITAL MEDIA PRODUCER Ot I10 ESSENTIAL (PRIMARY) HYPERTENSION 05/20/2016 LUIZA BARBOSA DIGITAL MEDIA PRODUCER Ot Z87.898 PERSONAL HISTORY OF OTHER SPECIFIED COND 05/20/2016 CHARLEY GO, KHLOE Ot K21.9 GASTRO-ESOPHAGEAL REFLUX DISEASE WITHOUT 05/20/2016 MADL, LUIZA L DIGITAL MEDIA PRODUCER Ot M54.5 LOW BACK PAIN 05/20/2016 MADL, LUIZA L DIGITAL MEDIA PRODUCER Ot M54.5 LOW BACK PAIN 05/20/2016 MADL, LUIZA L DIGITAL MEDIA PRODUCER Ot M54.5 LOW BACK PAIN 05/20/2016 MADL, LUIZA L DIGITAL MEDIA PRODUCER Ot E04.9 NONTOXIC GOITER, UNSPECIFIED 05/20/2016 MADL, LUIZA L DIGITAL MEDIA PRODUCER Ot R00.0 TACHYCARDIA, UNSPECIFIED 05/20/2016 SAMARA GO, VAISHNAVI Ibrahim Ot I08.1 RHEUMATIC DISORDERS OF BOTH MITRAL AND T 05/20/2016 MADL, LUIZA L DIGITAL MEDIA PRODUCER Ot I10 ESSENTIAL (PRIMARY) HYPERTENSION 05/20/2016 MADL, LUIZA L DIGITAL MEDIA PRODUCER Ot D73.3 ABSCESS OF SPLEEN 05/20/2016 MADL, LUIZA L DIGITAL MEDIA PRODUCER Ot Z98.89 OTHER SPECIFIED POSTPROCEDURAL STATES 05/20/2016 MADL, LUIZA L DIGITAL MEDIA PRODUCER Ot D73.3 ABSCESS OF SPLEEN 05/20/2016 MADL, LUIZA L DIGITAL MEDIA PRODUCER Ot Z87.01 PERSONAL HISTORY OF PNEUMONIA (RECURRENT 05/20/2016 MADL, LUIZA L DIGITAL MEDIA PRODUCER Ot Z98.89 OTHER SPECIFIED POSTPROCEDURAL STATES 05/20/2016 MADL, LUIZA L DIGITAL MEDIA PRODUCER Ot I10 ESSENTIAL (PRIMARY) HYPERTENSION 05/20/2016 MADL, LUIZA L DIGITAL MEDIA PRODUCER Ot R73.03 PREDIABETES 05/20/2016 MADL, LUIZA L DIGITAL MEDIA PRODUCER Ot Z98.84 BARIATRIC SURGERY STATUS 05/20/2016 CHELSEY, LUIZA L DIGITAL MEDIA PRODUCER Ot E04.1 NONTOXIC SINGLE THYROID NODULE 05/20/2016 OKSANA GREEN MD Ot G47.33 OBSTRUCTIVE SLEEP APNEA (ADULT) (PEDIATR 05/20/2016 OKSANA GREEN MD Ot J35.1 HYPERTROPHY OF TONSILS 05/20/2016 OKSANA GREEN MD Ot J35.8 OTHER CHRONIC DISEASES OF TONSILS AND AD 05/20/2016 OKSANA GREEN MD Ot Z01.818 ENCOUNTER FOR OTHER PREPROCEDURAL EXAMIN 05/20/2016 CHELSEYCAIOLUIZA L DIGITAL MEDIA PRODUCER Ot G43.011 MIGRAINE WITHOUT AURA, INTRACTABLE, WITH 05/20/2016 LUIZA BARBOSA DIGITAL MEDIA PRODUCER Ot G43.011 MIGRAINE WITHOUT AURA, INTRACTABLE, WITH 05/20/2016 OKSANA GREEN MD Ot G47.33 OBSTRUCTIVE SLEEP APNEA (ADULT) (PEDIATR 05/20/2016 OKSANA GREEN MD Ot J35.1 HYPERTROPHY OF TONSILS 05/20/2016 OKSANA GREEN MD Ot J35.8 OTHER CHRONIC DISEASES OF TONSILS AND AD 05/20/2016 OKSANA GREEN MD Ot Z01.818 ENCOUNTER FOR OTHER PREPROCEDURAL EXAMIN 05/22/2016 LUIZA BARBOSA DIGITAL MEDIA PRODUCER Ot G43.019 MIGRAINE W/O AURA, INTRACTABLE, WITHOUT 05/22/2016 LUIZA BARBOSA DIGITAL MEDIA PRODUCER Ot Z09 ENCNTR FOR F/U EXAM AFT TRTMT FOR COND O 05/22/2016 LUIZA BARBOSA DIGITAL MEDIA PRODUCER Ot Z98.890 OTHER SPECIFIED POSTPROCEDURAL STATES 05/22/2016 BOONE MUÑOZ MD Ot E66.9 OBESITY, UNSPECIFIED 05/22/2016 BOONE MUÑOZ MD Ot G47.33 OBSTRUCTIVE SLEEP APNEA (ADULT) (PEDIATR 05/22/2016 BOONE MUÑOZ MD Ot I10 ESSENTIAL (PRIMARY) HYPERTENSION 05/22/2016 BOONE MUÑOZ MD Ot R21 RASH AND OTHER NONSPECIFIC SKIN ERUPTION 05/23/2016 BOONE MUÑOZ MD Ot E66.9 OBESITY, UNSPECIFIED 05/23/2016 BOONE MUÑOZ MD Ot G47.33 OBSTRUCTIVE SLEEP APNEA (ADULT) (PEDIATR 05/23/2016 BOONE MUÑOZ MD Ot I10 ESSENTIAL (PRIMARY) HYPERTENSION 05/23/2016 BOONE MUÑOZ MD Ot R21 RASH AND OTHER NONSPECIFIC SKIN ERUPTION 05/23/2016 BOONE MUÑOZ MD Ot E66.9 OBESITY, UNSPECIFIED 05/23/2016 BOONE MUÑOZ MD Ot G47.33 OBSTRUCTIVE SLEEP APNEA (ADULT) (PEDIATR 05/23/2016 BOONE MUÑOZ MD Ot I10 ESSENTIAL (PRIMARY) HYPERTENSION 05/23/2016 TONI MD, BASHAR J Ot R21 RASH AND OTHER NONSPECIFIC SKIN ERUPTION 05/23/2016 NELSONLLUIZA DIGITAL MEDIA PRODUCER Ot Z09 ENCNTR FOR F/U EXAM AFT TRTMT FOR COND O 05/23/2016 NELSONLLUIZA L DIGITAL MEDIA PRODUCER Ot Z98.890 OTHER SPECIFIED POSTPROCEDURAL STATES 05/23/2016 BOONE MUÑOZ MD Ot E66.9 OBESITY, UNSPECIFIED 05/23/2016 BOONE MUÑOZ MD Ot G47.33 OBSTRUCTIVE SLEEP APNEA (ADULT) (PEDIATR 05/23/2016 BOONE MUÑOZ MD Ot I10 ESSENTIAL (PRIMARY) HYPERTENSION 05/23/2016 BOONE MUÑOZ MD, Ot R21 RASH AND OTHER NONSPECIFIC SKIN ERUPTION 05/27/2016 CHELSEY LUIZA Breezy SHEIKHP Ot G43.019 MIGRAINE W/O AURA, INTRACTABLE, WITHOUT 06/13/2016 BOONE MUÑOZ MD, Ot I10 ESSENTIAL (PRIMARY) HYPERTENSION 07/02/2016 OKSANA GREEN MD Ot G47.33 OBSTRUCTIVE SLEEP APNEA (ADULT) (PEDIATR 07/02/2016 OKSANA GREEN MD Ot J35.1 HYPERTROPHY OF TONSILS 07/02/2016 OKSANA GREEN MD Ot J35.8 OTHER CHRONIC DISEASES OF TONSILS AND AD 07/02/2016 OKSANA GREEN MD Ot Z01.818 ENCOUNTER FOR OTHER PREPROCEDURAL EXAMIN 07/03/2016 OKSANA GREEN MD Ot G47.33 OBSTRUCTIVE SLEEP APNEA (ADULT) (PEDIATR 07/03/2016 OKSANA GREEN MD Ot J35.1 HYPERTROPHY OF TONSILS 07/03/2016 OKSANA GREEN MD Ot J35.8 OTHER CHRONIC DISEASES OF TONSILS AND AD 07/03/2016 OKSANA GREEN MD Ot Z01.818 ENCOUNTER FOR OTHER PREPROCEDURAL EXAMIN 09/16/2016 CHELSEY, LUIZA L DIGITAL MEDIA PRODUCER Ot I10 ESSENTIAL (PRIMARY) HYPERTENSION 09/16/2016 MADL, LUIZA L DIGITAL MEDIA PRODUCER Ot R82.99 OTHER ABNORMAL FINDINGS IN URINE 10/01/2016 MADL, LUIZA L DIGITAL MEDIA PRODUCER Ot I10 ESSENTIAL (PRIMARY) HYPERTENSION 10/01/2016 MADL, LUIZA L DIGITAL MEDIA PRODUCER Ot R82.99 OTHER ABNORMAL FINDINGS IN URINE 10/13/2016 VENECIA DE LA TORRE DO Ot N97.9 FEMALE INFERTILITY, UNSPECIFIED 10/15/2016 DE LA TORRE DO, VENECIA C Ot E03.9 HYPOTHYROIDISM, UNSPECIFIED 10/15/2016 DE LA TORRE DO, VENECIA C Ot E55.9 VITAMIN D DEFICIENCY, UNSPECIFIED 10/15/2016 DE LA TORRE DO, VENECIA C Ot Z01.[address] DISPATCH[address] STREET DEPARTMENT EXAM (GENERAL) (ROUTINE) 10/15/2016 DE LA TORRE DO, VENECIA C Ot Z87.19 PERSONAL HISTORY OF OTHER DISEASES OF 10/15/2016 DE LA TORRE DO, VENECIA C Ot Z98.890 OTHER SPECIFIED POSTPROCEDURAL STATES 10/15/2016 MADL, LUIZA L DIGITAL MEDIA PRODUCER Ot I10 ESSENTIAL (PRIMARY) HYPERTENSION 10/15/2016 MADL, LUIZA L DIGITAL MEDIA PRODUCER Ot R82.99 OTHER ABNORMAL FINDINGS IN URINE 10/15/2016 DE LA TORRE DO, VENECIA C Ot N97.9 FEMALE INFERTILITY, UNSPECIFIED 10/16/2016 DE LA TORRE DO, VENECIA C Ot N97.9 FEMALE INFERTILITY, UNSPECIFIED 10/16/2016 DE LA TORRE DO, VENECIA C Ot N97.9 FEMALE INFERTILITY, UNSPECIFIED 10/22/2016 MADL, LUIZA L DIGITAL MEDIA PRODUCER Ot I10 ESSENTIAL (PRIMARY) HYPERTENSION 10/22/2016 MADL, LUIZA L DIGITAL MEDIA PRODUCER Ot R82.99 OTHER ABNORMAL FINDINGS IN URINE 10/22/2016 DE LA TORRE DO, VENECIA C Ot N97.9 FEMALE INFERTILITY, UNSPECIFIED 10/22/2016 DE LA TORRE DO, VENECIA C Ot N97.9 FEMALE INFERTILITY, UNSPECIFIED 10/30/2016 DE LA TORRE DO, VENECIA C Ot N97.9 FEMALE INFERTILITY, UNSPECIFIED 10/30/2016 DE LA TORRE DO, VENECIA C Ot N97.9 FEMALE INFERTILITY, UNSPECIFIED 10/31/2016 DE LA TORRE DO, VENECIA C Ot N97.9 FEMALE INFERTILITY, UNSPECIFIED 01/31/2017 DE LA TORRE DO, VENECIA C Ot E03.9 HYPOTHYROIDISM, UNSPECIFIED 01/31/2017 DE LA TORRE DO, VENECIA C Ot E55.9 VITAMIN D DEFICIENCY, UNSPECIFIED 01/31/2017 DE LA TORRE DO, VENECIA C Ot Z01.[address]RE[address] DEPARTMENT EXAM (GENERAL) (ROUTINE) 01/31/2017 DE LA TORRE DO, VENECIA C Ot Z87.19 PERSONAL HISTORY OF OTHER DISEASES OF 01/31/2017 DE LA TORRE DO, VENECIA C Ot Z98.890 OTHER SPECIFIED POSTPROCEDURAL STATES 01/31/2017 MADL, LUIZA L DIGITAL MEDIA PRODUCER Ot I10 ESSENTIAL (PRIMARY) HYPERTENSION 01/31/2017 MADL, LUIZA L DIGITAL MEDIA PRODUCER Ot R82.99 OTHER ABNORMAL FINDINGS IN URINE 01/31/2017 DE LA TORRE DO VENECIA C Ot N97.9 FEMALE INFERTILITY, UNSPECIFIED 01/31/2017 DE LA TORRE DO, VENECIA C Ot N97.9 FEMALE INFERTILITY, UNSPECIFIED 03/05/2017 DE LA TORRE DO, VENECIA C Ot N80.8 OTHER ENDOMETRIOSIS 03/05/2017 DE LA TORRE DO, VENECIA C Ot Z01.812 ENCOUNTER FOR PREPROCEDURAL LABORATORY E 03/05/2017 DE LA TORRE DO, VENECIA C Ot E03.9 HYPOTHYROIDISM, UNSPECIFIED 03/05/2017 DE LA TORRE DO, VENECIA C Ot E55.9 VITAMIN D DEFICIENCY, UNSPECIFIED 03/05/2017 DE LA TORRE DO, VENECIA C Ot Z01.[address]RE[address] DEPARTMENT EXAM (GENERAL) (ROUTINE) 03/05/2017 DE LA TORRE DO, EVNECIA C Ot Z87.19 PERSONAL HISTORY OF OTHER DISEASES OF TH 03/05/2017 DE LA TORRE DO, VENECIA C Ot Z98.890 OTHER SPECIFIED POSTPROCEDURAL STATES 03/05/2017 MADL, LUIZA L DIGITAL MEDIA PRODUCER Ot I10 ESSENTIAL (PRIMARY) HYPERTENSION 03/05/2017 MADL, LUIZA L DIGITAL MEDIA PRODUCER Ot R82.99 OTHER ABNORMAL FINDINGS IN URINE 03/05/2017 DE LA TORRE DO, VENECIA C Ot N97.9 FEMALE INFERTILITY, UNSPECIFIED 03/05/2017 DE LA TORRE DO, VENECIA C Ot N97.9 FEMALE INFERTILITY, UNSPECIFIED 03/06/2017 DE LA TORRE DO, VENECIA C Ot N80.8 OTHER ENDOMETRIOSIS 03/06/2017 DE LA TORRE DO, VENECIA C Ot Z01.812 ENCOUNTER FOR PREPROCEDURAL LABORATORY E 03/10/2017 DE LA TORRE DO, VENECIA C Ot E03.9 HYPOTHYROIDISM, UNSPECIFIED 03/10/2017 DE LA TORRE DO, VENECIA C Ot E55.9 VITAMIN D DEFICIENCY, UNSPECIFIED 03/10/2017 DE LA TORRE DO, VENECIA C Ot Z01.[address]RE[address] DEPARTMENT EXAM (GENERAL) (ROUTINE) 03/10/2017 DE LA TORRE DO, VENECIA C Ot Z87.19 PERSONAL HISTORY OF OTHER DISEASES OF TH 03/10/2017 VENECIA DE LA TORRE DO Ot Z98.890 OTHER SPECIFIED POSTPROCEDURAL STATES 03/10/2017 MADLUIZA Tijerina DIGITAL MEDIA PRODUCER Ot I10 ESSENTIAL (PRIMARY) HYPERTENSION 03/10/2017 MADLUIZA Tijerina DIGITAL MEDIA PRODUCER Ot R82.99 OTHER ABNORMAL FINDINGS IN URINE 03/10/2017 VENECIA DE LA TORRE DO Ot N97.9 FEMALE INFERTILITY, UNSPECIFIED 03/10/2017 VENECIA DE LA TORRE DO Ot N97.9 FEMALE INFERTILITY, UNSPECIFIED 03/10/2017 MADLLUIZA DIGITAL MEDIA PRODUCER Ot M79.671 PAIN IN RIGHT FOOT 03/10/2017 NELSONLLUIZA DIGITAL MEDIA PRODUCER Ot Z98.890 OTHER SPECIFIED POSTPROCEDURAL STATES 03/11/2017 VENECIA DE LA TORRE DO Ot E03.9 HYPOTHYROIDISM, UNSPECIFIED 03/11/2017 VENECIA DE LA TORRE DO Ot E66.01 MORBID (SEVERE) OBESITY DUE TO EXCESS CA 03/11/2017 VENECIA DE LA TORRE DO Ot G47.33 OBSTRUCTIVE SLEEP APNEA (ADULT) (PEDIATR 03/11/2017 VENECIA DE LA TORRE DO Ot I08.1 RHEUMATIC DISORDERS OF BOTH MITRAL AND T 03/11/2017 VENECIA DE LA TORRE DO Ot I10 ESSENTIAL (PRIMARY) HYPERTENSION 03/11/2017 VENECIA DE LA TORRE DO Ot I45.10 UNSPECIFIED RIGHT BUNDLE-BRANCH BLOCK 03/11/2017 VENECIA DE LA TORRE DO Ot K80.10 CALCULUS OF GALLBLADDER W CHRONIC CHOLEC 03/11/2017 VENECIA DE LA TORRE DO Ot K80.20 CALCULUS OF GALLBLADDER W/O CHOLECYSTITI 03/11/2017 VENECIA DE LA TORRE DO Ot N72 INFLAMMATORY DISEASE OF CERVIX UTERI 03/11/2017 VENECIA DE LA TORRE DO Ot N73.6 FEMALE PELVIC PERITONEAL ADHESIONS (POST 03/11/2017 VENECIA DE LA TORRE DO Ot N80.0 ENDOMETRIOSIS OF UTERUS 03/11/2017 VENECIA DE LA TORRE DO Ot N80.1 ENDOMETRIOSIS OF OVARY 03/11/2017 VENECIA DE LA TORRE DO Ot N80.3 ENDOMETRIOSIS OF PELVIC PERITONEUM 03/11/2017 VENECIA DE LA TORRE DO, Ot N80.8 OTHER ENDOMETRIOSIS 03/11/2017 VENECIA DE LA TORRE DO Ot N83.201 UNSPECIFIED OVARIAN CYST, RIGHT SIDE 03/11/2017 VENECIA DE LA TORRE DO Ot N83.202 UNSPECIFIED OVARIAN CYST, LEFT SIDE 03/11/2017 VENECIA DE LA TORRE DO Ot N88.8 OTHER SPECIFIED NONINFLAMMATORY DISORDER 03/11/2017 VENECIA DE LA TORRE DO Ot Z68.39 BODY MASS INDEX (BMI) 39.0-39.9, ADULT 03/11/2017 VENECIA DE LA TORRE DO Ot Z79.899 OTHER MOLD REPAIR TECHNICIAN (CURRENT) DRUG THERAPY 03/11/2017 VENECIA DE LA TORRE DO Ot Z88.6 ALLERGY STATUS TO ANALGESIC AGENT STATUS 03/19/2017 MADBreezy LUIZA Breezy DIGITAL MEDIA PRODUCER Ot M79.671 PAIN IN RIGHT FOOT 03/19/2017 MADBreezyCAIOLUIZA Breezy DIGITAL MEDIA PRODUCER Ot Z98.890 OTHER SPECIFIED POSTPROCEDURAL STATES 04/15/2017 VENECIA DE LA TORRE DO Ot E03.9 HYPOTHYROIDISM, UNSPECIFIED 04/15/2017 VENECIA DE LA TORRE DO Ot E66.01 MORBID (SEVERE) OBESITY DUE TO EXCESS CA 04/15/2017 VENECIA DE LA TORRE DO Ot G47.33 OBSTRUCTIVE SLEEP APNEA (ADULT) (PEDIATR 04/15/2017 VENECIA DE LA TORRE DO Ot I08.1 RHEUMATIC DISORDERS OF BOTH MITRAL AND T 04/15/2017 VENECIA DE LA TORRE DO Ot I10 ESSENTIAL (PRIMARY) HYPERTENSION 04/15/2017 VENECIA DE LA TORRE DO Ot I45.10 UNSPECIFIED RIGHT BUNDLE-BRANCH BLOCK 04/15/2017 VENECIA DE LA TORRE DO Ot K80.10 CALCULUS OF GALLBLADDER W CHRONIC CHOLEC 04/15/2017 VENECIA DE LA TORRE DO Ot N72 INFLAMMATORY DISEASE OF CERVIX UTERI 04/15/2017 VENECIA DE LA TORRE DO Ot N73.6 FEMALE PELVIC PERITONEAL ADHESIONS (POST 04/15/2017 VENECIA DE LA TORRE DO Ot N80.0 ENDOMETRIOSIS OF UTERUS 04/15/2017 VENECIA DE LA TORRE DO Ot N80.1 ENDOMETRIOSIS OF OVARY 04/15/2017 VENECIA DE LA TORRE DO Ot N80.3 ENDOMETRIOSIS OF PELVIC PERITONEUM 04/15/2017 VENECIA DE LA TORRE DO Ot N80.8 OTHER ENDOMETRIOSIS 04/15/2017 VENECIA DE LA TORRE DO Ot N83.201 UNSPECIFIED OVARIAN CYST, RIGHT SIDE 04/15/2017 VENECIA DE LA TORRE DO Ot N83.202 UNSPECIFIED OVARIAN CYST, LEFT SIDE 04/15/2017 VENECIA DE LA TORRE DO Ot N88.8 OTHER SPECIFIED NONINFLAMMATORY DISORDER 04/15/2017 VENECIA DE LA TORRE DO Ot Z68.39 BODY MASS INDEX (BMI) 39.0-39.9, ADULT 04/15/2017 VENECIA DE LA TORRE DO Ot Z79.899 OTHER MOLD REPAIR TECHNICIAN (CURRENT) DRUG THERAPY 04/15/2017 VENECIA DE LA TORRE DO Ot Z88.6 ALLERGY STATUS TO ANALGESIC AGENT STATUS 06/02/2017 MADLLUIZA DIGITAL MEDIA PRODUCER Ot M79.671 PAIN IN RIGHT FOOT 06/02/2017 MADLLUIZA DIGITAL MEDIA PRODUCER Ot Z98.890 OTHER SPECIFIED POSTPROCEDURAL STATES 12/24/2017 DESIRE CRUZ HIDE OR SKIN BUFFER Ot E04.1 NONTOXIC SINGLE THYROID NODULE 12/24/2017 DESIRE CRUZ APRN Ot F41.9 ANXIETY DISORDER, UNSPECIFIED 12/24/2017 DESIRE CRUZ HIDE OR SKIN BUFFER Ot I10 ESSENTIAL (PRIMARY) HYPERTENSION 12/24/2017 DESIRE CRUZ HIDE OR SKIN BUFFER Ot Z87.898 PERSONAL HISTORY OF OTHER SPECIFIED COND 12/24/2017 KATTY GARZA DO Ot E66.9 OBESITY, UNSPECIFIED 12/24/2017 KATTY GARZA DO M Ot I10 ESSENTIAL (PRIMARY) HYPERTENSION 12/24/2017 KATTY GARZA DO Ot Z68.39 BODY MASS INDEX (BMI) 39.0-39.9, ADULT 12/25/2017 KATTY GARZA DO Ot E66.9 OBESITY, UNSPECIFIED 12/25/2017 KATTY GARZA DO M Ot I10 ESSENTIAL (PRIMARY) HYPERTENSION 12/25/2017 KATTY GARZA DO M Ot Z68.39 BODY MASS INDEX (BMI) 39.0-39.9, ADULT 01/07/2018 DESIRE CRUZ HIDE OR SKIN BUFFER Ot E04.1 NONTOXIC SINGLE THYROID NODULE 01/07/2018 DESIRE CRUZ HIDE OR SKIN BUFFER Ot F41.9 ANXIETY DISORDER, UNSPECIFIED 01/07/2018 DESIRE CRUZ HIDE OR SKIN BUFFER Ot I10 ESSENTIAL (PRIMARY) HYPERTENSION 01/07/2018 DESIRE CRUZ HIDE OR SKIN BUFFER Ot Z87.898 PERSONAL HISTORY OF OTHER SPECIFIED COND 01/07/2018 KATTY GARZA DO Ot E66.9 OBESITY, UNSPECIFIED 01/07/2018 KATTY GARZA DO Ollie Ot I10 ESSENTIAL (PRIMARY) HYPERTENSION 01/07/2018 KATTY GARZA DO Ot Z68.39 BODY MASS INDEX (BMI) 39.0-39.9, ADULT 01/15/2018 DESIRE CRUZ HIDE OR SKIN BUFFER Ot E04.1 NONTOXIC SINGLE THYROID NODULE 01/15/2018 DESIRE CRUZ HIDE OR SKIN BUFFER Ot E07.89 OTHER SPECIFIED DISORDERS OF THYROID 01/19/2018 DESIRE CRUZ APRN Ot E04.1 NONTOXIC SINGLE THYROID NODULE 01/19/2018 DESIRE CRUZ APRN Ot E07.89 OTHER SPECIFIED DISORDERS OF THYROID 01/20/2018 KATTY GARZA DO Ollie Ot Z84.1 FAMILY HISTORY OF DISORDERS OF KIDNEY AN 01/21/2018 BOONE MUÑOZ MD Ot E66.01 MORBID (SEVERE) OBESITY DUE TO EXCESS CA 01/21/2018 BOONE MUÑOZ MD Ot G47.30 SLEEP APNEA, UNSPECIFIED 01/21/2018 BOONE MUÑOZ MD Ot I10 ESSENTIAL (PRIMARY) HYPERTENSION 01/21/2018 BOONE MUÑOZ MD Ot I27.20 PULMONARY HYPERTENSION, UNSPECIFIED 01/21/2018 BOONE UMÑOZ MD Ot I34.0 NONRHEUMATIC MITRAL (VALVE) INSUFFICIENC 01/27/2018 DESIRE CRUZ APRN Ot E04.1 NONTOXIC SINGLE THYROID NODULE 01/27/2018 DESIRE CRUZ APRN Ot E07.89 OTHER SPECIFIED DISORDERS OF THYROID 01/29/2018 BOONE MUÑOZ MD Ot E66.01 MORBID (SEVERE) OBESITY DUE TO EXCESS CA 01/29/2018 BOONE MUÑOZ MD Ot G47.30 SLEEP APNEA, UNSPECIFIED 01/29/2018 BOONE MUÑOZ MD Ot I10 ESSENTIAL (PRIMARY) HYPERTENSION 01/29/2018 BOONE MUÑOZ MD Ot I34.0 NONRHEUMATIC MITRAL (VALVE) INSUFFICIENC 01/29/2018 TONI GO, BOONE Loredo Ot Z68.41 BODY MASS INDEX (BMI) 40.0-44.9, ADULT 02/02/2018 JOSE SANCHEZ A DIGITAL MEDIA PRODUCER Ot 789.01 ABDOMINAL PAIN, RIGHT UPPER QUADRANT 02/02/2018 JOSE SANCHEZ A DIGITAL MEDIA PRODUCER Ot 789.01 ABDOMINAL PAIN, RIGHT UPPER QUADRANT 02/02/2018 JACQUIE GO, BINA Shin Ot 564.89 OTH FUNCT DISORDERS/INTESTINE 02/02/2018 BINA DHILLON MD Ot 569.3 RECTAL ANAL HEMORRHAGE 02/02/2018 BINA DHILLON MD Ot V72.84 EXAM PRE-OPERATIVE NOS 02/02/2018 MADL, LUIZA L DIGITAL MEDIA PRODUCER Ot 625.8 FEM GENITAL SYMPTOMS NEC 02/02/2018 MADL, LUIZA L DIGITAL MEDIA PRODUCER Ot 625.8 FEM GENITAL SYMPTOMS NEC 02/02/2018 DE LA TORRE DO, VENECIA C Ot 620.2 OVARIAN CYST NEC/NOS 02/02/2018 DE LA TORRE DO, VENECIA C Ot 626.8 MENSTRUAL DISORDER NEC 02/02/2018 DE LA TORRE DO VENECIA C Ot V72.63 PRE-PROCEDURAL LABORATORY EXAMINATION 02/02/2018 WIL TAVERAS VENECIA C Ot V72.81 [id number] CARDIOVASCULAR 02/02/2018 DE LA TORRE DO VENECIA C Ot V74.8 SCREEN-BACTERIAL DIS NEC 02/02/2018 DE LA TORRE DO VENECIA C Ot M79.605 PAIN IN LEFT LEG 02/02/2018 MADL, LUIZA L DIGITAL MEDIA PRODUCER Ot I10 ESSENTIAL (PRIMARY) HYPERTENSION 02/02/2018 MADL, LUIZA L DIGITAL MEDIA PRODUCER Ot Z87.898 PERSONAL HISTORY OF OTHER SPECIFIED COND 02/02/2018 CHARLEY GO, KHLOE Ot K21.9 GASTRO-ESOPHAGEAL REFLUX DISEASE WITHOUT 02/02/2018 MADL, LUIZA L DIGITAL MEDIA PRODUCER Ot M54.5 LOW BACK PAIN 02/02/2018 MADL, LUIZA L DIGITAL MEDIA PRODUCER Ot M54.5 LOW BACK PAIN 02/02/2018 MADL, LUIZA L DIGITAL MEDIA PRODUCER Ot M54.5 LOW BACK PAIN 02/02/2018 MADL, LUIZA L DIGITAL MEDIA PRODUCER Ot E04.9 NONTOXIC GOITER, UNSPECIFIED 02/02/2018 MADL, LUIZA L DIGITAL MEDIA PRODUCER Ot R00.0 TACHYCARDIA, UNSPECIFIED 02/02/2018 SAMARA GO, VAISHNAVI Ibrahim Ot I08.1 RHEUMATIC DISORDERS OF BOTH MITRAL AND T 02/02/2018 MADL, LUIZA L DIGITAL MEDIA PRODUCER Ot I10 ESSENTIAL (PRIMARY) HYPERTENSION 02/02/2018 MADL, LUIZA L DIGITAL MEDIA PRODUCER Ot D73.3 ABSCESS OF SPLEEN 02/02/2018 MADL, LUIZA L DIGITAL MEDIA PRODUCER Ot Z98.89 OTHER SPECIFIED POSTPROCEDURAL STATES 02/02/2018 MADL, LUIZA L DIGITAL MEDIA PRODUCER Ot D73.3 ABSCESS OF SPLEEN 02/02/2018 MADL, LUIZA L DIGITAL MEDIA PRODUCER Ot Z87.01 PERSONAL HISTORY OF PNEUMONIA (RECURRENT 02/02/2018 MADL, ULIZA L DIGITAL MEDIA PRODUCER Ot Z98.89 OTHER SPECIFIED POSTPROCEDURAL STATES 02/02/2018 MADL, LUIZA L DIGITAL MEDIA PRODUCER Ot I10 ESSENTIAL (PRIMARY) HYPERTENSION 02/02/2018 MADL, LUIZA L DIGITAL MEDIA PRODUCER Ot R73.03 PREDIABETES 02/02/2018 MADL, LUIZA L DIGITAL MEDIA PRODUCER Ot Z98.84 BARIATRIC SURGERY STATUS 02/02/2018 MADL, LUIZA L DIGITAL MEDIA PRODUCER Ot E04.1 NONTOXIC SINGLE THYROID NODULE 02/02/2018 MADL, LUIZA L DIGITAL MEDIA PRODUCER Ot G43.011 MIGRAINE WITHOUT AURA, INTRACTABLE, WITH 02/02/2018 BOONE MUÑOZ MD Ot E66.9 OBESITY, UNSPECIFIED 02/02/2018 BOONE MUÑOZ MD Ot G47.33 OBSTRUCTIVE SLEEP APNEA (ADULT) (PEDIATR 02/02/2018 BOONE MUÑOZ MD Ot I10 ESSENTIAL (PRIMARY) HYPERTENSION 02/02/2018 BOONE MUÑOZ MD Ot R21 RASH AND OTHER NONSPECIFIC SKIN ERUPTION 02/02/2018 MADL, LUIZA L DIGITAL MEDIA PRODUCER Ot G43.019 MIGRAINE W/O AURA, INTRACTABLE, WITHOUT 02/02/2018 MADL, LUIZA L DIGITAL MEDIA PRODUCER Ot Z09 ENCNTR FOR F/U EXAM AFT TRTMT FOR COND O 02/02/2018 MADL, LUIZA L DIGITAL MEDIA PRODUCER Ot Z98.890 OTHER SPECIFIED POSTPROCEDURAL STATES 02/02/2018 TONI GO, BOONE Loredo Ot I10 ESSENTIAL (PRIMARY) HYPERTENSION 02/02/2018 PETER GO, OKSANA Salguero Ot G47.33 OBSTRUCTIVE SLEEP APNEA (ADULT) (PEDIATR 02/02/2018 PETER GO, OKSANA Salguero Ot J35.1 HYPERTROPHY OF TONSILS 02/02/2018 OKSANA GREEN MD Ot J35.8 OTHER CHRONIC DISEASES OF TONSILS AND AD 02/02/2018 PETER GO, OKSANA Salguero Ot Z01.818 ENCOUNTER FOR OTHER PREPROCEDURAL EXAMIN 02/02/2018 WIL TAVERAS VENECIA C Ot E03.9 HYPOTHYROIDISM, UNSPECIFIED 02/02/2018 DE LA TORRE DO VENECIA C Ot E55.9 VITAMIN D DEFICIENCY, UNSPECIFIED 02/02/2018 WIL TAVERAS VENECIA C Ot Z01.[address] DEPARTMENT EXAM (GENERAL) (ROUTINE) 02/02/2018 WIL TAVERAS VENECIA C Ot Z87.19 PERSONAL HISTORY OF OTHER DISEASES OF TH 02/02/2018 WIL TAVERAS VENECIA C Ot Z98.890 OTHER SPECIFIED POSTPROCEDURAL STATES 02/02/2018 MADL, LUIZA L DIGITAL MEDIA PRODUCER Ot I10 ESSENTIAL (PRIMARY) HYPERTENSION 02/02/2018 MADL, LUIZA L DIGITAL MEDIA PRODUCER Ot R82.99 OTHER ABNORMAL FINDINGS IN URINE 02/02/2018 MADL, LUIZA L DIGITAL MEDIA PRODUCER Ot M79.671 PAIN IN RIGHT FOOT 02/02/2018 MADL, LUIZA L DIGITAL MEDIA PRODUCER Ot Z98.890 OTHER SPECIFIED POSTPROCEDURAL STATES 02/02/2018 DESIRE CRZU APRN Ot E04.1 NONTOXIC SINGLE THYROID NODULE 02/02/2018 DESIRE CRUZ HIDE OR SKIN BUFFER Ot F41.9 ANXIETY DISORDER, UNSPECIFIED 02/02/2018 DESIRE CRUZ HIDE OR SKIN BUFFER Ot I10 ESSENTIAL (PRIMARY) HYPERTENSION 02/02/2018 DESIRE CRUZ HIDE OR SKIN BUFFER Ot Z87.898 PERSONAL HISTORY OF OTHER SPECIFIED COND 02/02/2018 KATTY GARZA DO Ot E66.9 OBESITY, UNSPECIFIED 02/02/2018 KATTY GARZA DO Ot I10 ESSENTIAL (PRIMARY) HYPERTENSION 02/02/2018 KATTY GARZA DO Ot Z68.39 BODY MASS INDEX (BMI) 39.0-39.9, ADULT 02/02/2018 DESIRE CRUZ APRN Ot E04.1 NONTOXIC SINGLE THYROID NODULE 02/02/2018 DESIRE CRUZ APRN Ot E07.89 OTHER SPECIFIED DISORDERS OF THYROID 02/02/2018 BOONE MUÑOZ MD Ot E66.01 MORBID (SEVERE) OBESITY DUE TO EXCESS CA 02/02/2018 BOONE MUÑOZ MD Ot G47.30 SLEEP APNEA, UNSPECIFIED 02/02/2018 BOONE MUÑOZ MD Ot I10 ESSENTIAL (PRIMARY) HYPERTENSION 02/02/2018 BOONE MUÑOZ MD Ot I27.20 PULMONARY HYPERTENSION, UNSPECIFIED 02/02/2018 BOONE MUÑOZ MD Ot I34.0 NONRHEUMATIC MITRAL (VALVE) INSUFFICIENC 02/02/2018 BOONE MUÑOZ MD Ot E66.01 MORBID (SEVERE) OBESITY DUE TO EXCESS CA 02/02/2018 BOONE MUÑOZ MD Ot G47.30 SLEEP APNEA, UNSPECIFIED 02/02/2018 BOONE MUÑOZ MD Ot I10 ESSENTIAL (PRIMARY) HYPERTENSION 02/02/2018 BOONE MUÑOZ MD Ot I34.0 NONRHEUMATIC MITRAL (VALVE) INSUFFICIENC 02/02/2018 BOONE MUÑOZ MD Ot Z68.41 BODY MASS INDEX (BMI) 40.0-44.9, ADULT 02/02/2018 DESIRE CRUZ APRN Ot E04.1 NONTOXIC SINGLE THYROID NODULE 02/02/2018 DESIRE CRUZ APRN Ot E07.89 OTHER SPECIFIED DISORDERS OF THYROID 02/02/2018 KATTY GARZA DO Ot Z84.1 FAMILY HISTORY OF DISORDERS OF KIDNEY AN 02/02/2018 KATTY GARZA DO Ot E66.9 OBESITY, UNSPECIFIED 02/02/2018 KATTY GARZA DO Ot I10 ESSENTIAL (PRIMARY) HYPERTENSION 02/02/2018 KATTY GARZA DO Ot Z68.39 BODY MASS INDEX (BMI) 39.0-39.9, ADULT 02/02/2018 DESIRE CRUZ APRN Ot E04.1 NONTOXIC SINGLE THYROID NODULE 02/02/2018 DESIRE CRUZ APRN Ot F41.9 ANXIETY DISORDER, UNSPECIFIED 02/02/2018 DESIRE CRUZ HIDE OR SKIN BUFFER Ot I10 ESSENTIAL (PRIMARY) HYPERTENSION 02/02/2018 DESIRE CRUZ HIDE OR SKIN BUFFER Ot Z87.898 PERSONAL HISTORY OF OTHER SPECIFIED COND Procedures Code [place] [address] TB TEST INTRADERMAL 07/20/2012 82198 US GALLBLADDER ULTRASOUND 10/13/2012 94934 XRAY RIBS RIGHT UNILATERAL 2 OR MORE VIEWS 04/09/2013 15390 HIDA SCAN 04/09/2013 98514 HEMOCCULT 06/09/2013 62565 HEMOCCULT 06/10/2013 Internal Dhillon, Bina 06/10/2013 74146 ROUTINE VENIPUNCTURE 01/04/2014 20999 A1C (IN-HOUSE) 01/04/2014 75033 CBC 01/04/2014 7209348 GFR CALC (RESULT ONLY) 01/04/2014 10901 CMP 01/04/2014 05066 LIPID PANEL 01/04/2014 51236 TSH 01/04/2014 28729 A1C (IN-HOUSE) 04/06/2014 83146 [employer] 04/14/2014 [id number] EXCISION OF STOMACH, PERCUTANEOUS ENDOSC 09/13/2015 [id number] DRAINAGE OF PERITONEAL CAVITY WITH DRAIN 10/04/2015 Results Test Result Range Comprehensive metabolic panel - 11/21/15 12:49 Serum or plasma sodium measurement (moles/volume) 142 mmol/L 135-145 Serum or plasma potassium measurement (moles/volume) 3.8 mmol/L 3.6-5.0 Serum or plasma chloride measurement (moles/volume) 107 mmol/L 98-107 Carbon dioxide 27 mmol/L 21-32 Serum or plasma anion gap determination (moles/volume) 8 mmol/L 5-14 Serum or plasma urea nitrogen measurement (mass/volume) 7 mg/dL 7-18 Serum or plasma creatinine measurement (mass/volume) 0.80 mg/dL 0.60-1.30 Serum or plasma urea nitrogen/creatinine mass ratio 9 NRG Serum or plasma creatinine measurement with calculation of estimated glomerular filtration rate > NRG Serum or plasma glucose measurement (mass/volume) 93 mg/dL 70-105 Serum or plasma calcium measurement (mass/volume) 9.5 mg/dL 8.5-10.1 Serum or plasma total bilirubin measurement (mass/volume) 0.5 mg/dL 0.1-1.0 Serum or plasma alkaline phosphatase measurement (enzymatic activity/volume) 52 U/L 40-136 Serum or plasma aspartate aminotransferase measurement (enzymatic activity/ volume) 30 U/L 5-34 Serum or plasma alanine aminotransferase measurement (enzymatic activity/volume ) 43 U/L 0-55 Serum or plasma protein measurement (mass/volume) 7.5 g/dL 6.4-8.2 Serum or plasma albumin measurement (mass/volume) 3.9 g/dL 3.2-4.5 Serum or plasma phosphate measurement (mass/volume) - 11/21/15 12:49 Serum or plasma phosphate measurement (mass/volume) 3.7 mg/dL 2.3-4.7 Magnesium - 11/21/15 12:49 Magnesium 1.9 mg/dL 1.8-2.4 Automated blood complete blood count (hemogram) panel - 11/21/15 12:49 Blood leukocytes automated count (number/volume) 4.0 10*3/uL 4.3-11.0 Blood erythrocytes automated count (number/volume) 4.19 10*6/uL 4.35-5.85 Venous blood hemoglobin measurement (mass/volume) 11.4 g/dL 11.5-16.0 Blood hematocrit (volume fraction) 37 % 35-52 Automated erythrocyte mean corpuscular volume 87 [foz_us] 80-99 Automated erythrocyte mean corpuscular hemoglobin (mass per erythrocyte) 27 pg 25-34 Automated erythrocyte mean corpuscular hemoglobin concentration measurement ( mass/volume) 31 g/dL 32-36 Automated erythrocyte distribution width ratio 17.9 % 10.0-14.5 Automated blood platelet count (count/volume) 251 10*3/uL 130-400 Automated blood platelet mean volume measurement 11.3 [foz_us] 7.4-10.4 Serum or plasma folate measurement (mass/volume) - 11/21/15 12:49 Serum or plasma folate measurement (mass/volume) 18.1 % 1.5-24.0 Cyanocobalamin measurement - 11/21/15 12:49 Vitamin B12 471 pg/mL 200-1000 25-hydroxyvitamin D measurement - 11/21/15 12:49 25-hydroxy vitamin D measurement 40 % 30-100 Blood CBC with ordered manual differential panel - 02/01/16 08:30 Blood leukocytes automated count (number/volume) 6.2 10*3/uL 4.3-11.0 Blood erythrocytes automated count (number/volume) 4.37 10*6/uL 4.35-5.85 Venous blood hemoglobin measurement (mass/volume) 12.0 g/dL 11.5-16.0 Blood hematocrit (volume fraction) 38 % 35-52 Automated erythrocyte mean corpuscular volume 86 [foz_us] 80-99 Automated erythrocyte mean corpuscular hemoglobin (mass per erythrocyte) 28 pg 25-34 Automated erythrocyte mean corpuscular hemoglobin concentration measurement ( mass/volume) 32 g/dL 32-36 Automated erythrocyte distribution width ratio 16.7 % 10.0-14.5 Automated blood platelet count (count/volume) 260 10*3/uL 130-400 Automated blood platelet mean volume measurement 10.3 [foz_us] 7.4-10.4 Automated blood neutrophils/100 leukocytes 56 % 42-75 Automated blood lymphocytes/100 leukocytes 35 % 12-44 Blood monocytes/100 leukocytes 10 % [facility] Automated blood eosinophils/100 leukocytes 1 % 0-10 Automated blood basophils/100 leukocytes 0 % 0-10 Blood neutrophils automated count (number/volume) 3.5 10*3 1.8-7.8 Blood lymphocytes automated count (number/volume) 2.2 10*3 1.0-4.0 Blood monocytes automated count (number/volume) 0.4 10*3 0.0-1.0 Automated eosinophil count 0.1 10*3/uL 0.0-0.3 Automated blood basophil count (count/volume) 0.0 10*3/uL 0.0-0.1 Manual blood segmented neutrophils/100 leukocytes 51 % [facility] Manual blood lymphocytes/100 leukocytes 39 % [facility] Blood erythrocyte morphology finding identification NORMAL [facility] Comprehensive metabolic panel - 02/01/16 08:30 Serum or plasma sodium measurement (moles/volume) 141 mmol/L 135-145 Serum or plasma potassium measurement (moles/volume) 4.2 mmol/L 3.6-5.0 Serum or plasma chloride measurement (moles/volume) 106 mmol/L 98-107 Carbon dioxide 26 mmol/L 21-32 Serum or plasma anion gap determination (moles/volume) 9 mmol/L 5-14 Serum or plasma urea nitrogen measurement (mass/volume) 12 mg/dL 7-18 Serum or plasma creatinine measurement (mass/volume) 0.81 mg/dL 0.60-1.30 Serum or plasma urea nitrogen/creatinine mass ratio 15 NRG Serum or plasma creatinine measurement with calculation of estimated glomerular filtration rate > NRG Serum or plasma glucose measurement (mass/volume) 94 mg/dL 70-105 Serum or plasma calcium measurement (mass/volume) 9.5 mg/dL 8.5-10.1 Serum or plasma total bilirubin measurement (mass/volume) 0.5 mg/dL 0.1-1.0 Serum or plasma alkaline phosphatase measurement (enzymatic activity/volume) 63 U/L 40-136 Serum or plasma aspartate aminotransferase measurement (enzymatic activity/ volume) 14 U/L 5-34 Serum or plasma alanine aminotransferase measurement (enzymatic activity/volume ) 17 U/L 0-55 Serum or plasma protein measurement (mass/volume) 7.8 g/dL 6.4-8.2 Serum or plasma albumin measurement (mass/volume) 4.2 g/dL 3.2-4.5 Magnesium - 02/01/16 08:30 Magnesium 2.5 mg/dL 1.8-2.4 THYROID STIMULATING HORMONE - 02/01/16 08:30 THYROID STIMULATING HORMONE 0.58 u[iU]/mL 0.35-4.94 Hemoglobin A1c - 02/01/16 08:30 Hemoglobin A1c 5.1 % 4.5-6.2 Cyanocobalamin measurement - 02/01/16 08:30 Vitamin B12 571 pg/mL 200-1000 Serum or plasma folate measurement (mass/volume) - 02/01/16 08:30 Serum or plasma folate measurement (mass/volume) 12.1 % 1.5-24.0 25-hydroxyvitamin D measurement - 02/01/16 08:30 25-hydroxy vitamin D measurement 32 % 30-100 Cyanocobalamin measurement - 02/01/16 08:30 Vitamin B12 571 pg/mL 200-1000 25-hydroxyvitamin D measurement - 02/01/16 08:30 25-hydroxy vitamin D measurement 32 % 30-100 Methicillin resistant Staphylococcus aureus (MRSA) screening culture - 12:20 Methicillin resistant Staphylococcus aureus (MRSA) screening culture NEG NRG Urine beta human chorionic gonadotropin (hCG) measurement - 04/08/16 08:15 Urine beta human chorionic gonadotropin (hCG) measurement NEGATIVE NEGATIVE Complete blood count (CBC) with automated white blood cell (WBC) differential - 04/08/16 08:30 Blood leukocytes automated count (number/volume) 7.4 10*3/uL 4.3-11.0 Blood erythrocytes automated count (number/volume) 4.65 10*6/uL 4.35-5.85 Venous blood hemoglobin measurement (mass/volume) 13.2 g/dL 11.5-16.0 Blood hematocrit (volume fraction) 41 % 35-52 Automated erythrocyte mean corpuscular volume 88 [foz_us] 80-99 Automated erythrocyte mean corpuscular hemoglobin (mass per erythrocyte) 28 pg 25-34 Automated erythrocyte mean corpuscular hemoglobin concentration measurement ( mass/volume) 32 g/dL 32-36 Automated erythrocyte distribution width ratio 15.2 % 10.0-14.5 Automated blood platelet count (count/volume) 258 10*3/uL 130-400 Automated blood platelet mean volume measurement 10.8 [foz_us] 7.4-10.4 Automated blood neutrophils/100 leukocytes 50 % 42-75 Automated blood lymphocytes/100 leukocytes 40 % 12-44 Blood monocytes/100 leukocytes 8 % 0-12 Automated blood eosinophils/100 leukocytes 1 % 0-10 Automated blood basophils/100 leukocytes 0 % 0-10 Blood neutrophils automated count (number/volume) 3.7 10*3 1.8-7.8 Blood lymphocytes automated count (number/volume) 3.0 10*3 1.0-4.0 Blood monocytes automated count (number/volume) 0.6 10*3 0.0-1.0 Automated eosinophil count 0.1 10*3/uL 0.0-0.3 Automated blood basophil count (count/volume) 0.0 10*3/uL 0.0-0.1 Whole blood basic metabolic panel - 04/08/16 08:30 Serum or plasma sodium measurement (moles/volume) 138 mmol/L 135-145 Serum or plasma potassium measurement (moles/volume) 4.1 mmol/L 3.6-5.0 Serum or plasma chloride measurement (moles/volume) 104 mmol/L 98-107 Carbon dioxide 27 mmol/L 21-32 Serum or plasma anion gap determination (moles/volume) 7 mmol/L 5-14 Serum or plasma urea nitrogen measurement (mass/volume) 11 mg/dL 7-18 Serum or plasma creatinine measurement (mass/volume) 0.68 mg/dL 0.60-1.30 Serum or plasma urea nitrogen/creatinine mass ratio 16 NRG Serum or plasma creatinine measurement with calculation of estimated glomerular filtration rate > NRG Serum or plasma glucose measurement (mass/volume) 98 mg/dL 70-105 Serum or plasma calcium measurement (mass/volume) 9.4 mg/dL 8.5-10.1 Serum or plasma creatinine measurement (mass/volume) - 05/19/16 15:36 Serum or plasma creatinine measurement (mass/volume) 0.76 mg/dL 0.60-1.30 ANTI-NUCLEAR AB (CHUN) ANALYZER - 05/19/16 15:36 Screening antinuclear antibody (CHUN) assay by enzyme immunoassay <1: 80 <1:80 Erythrocyte sedimentation rate by westergren method - 05/19/16 15:36 Erythrocyte sedimentation rate by westergren method 25 mm 0-35 Automated blood complete blood count (hemogram) panel - 05/22/16 09:39 Blood leukocytes automated count (number/volume) 6.2 10*3/uL 4.3-11.0 Blood erythrocytes automated count (number/volume) 4.28 10*6/uL 4.35-5.85 Venous blood hemoglobin measurement (mass/volume) 12.4 g/dL 11.5-16.0 Blood hematocrit (volume fraction) 38 % 35-52 Automated erythrocyte mean corpuscular volume 88 [foz_us] 80-99 Automated erythrocyte mean corpuscular hemoglobin (mass per erythrocyte) 29 pg 25-34 Automated erythrocyte mean corpuscular hemoglobin concentration measurement ( mass/volume) 33 g/dL 32-36 Automated erythrocyte distribution width ratio 14.3 % 10.0-14.5 Automated blood platelet count (count/volume) 240 10*3/uL 130-400 Automated blood platelet mean volume measurement 10.4 [foz_us] 7.4-10.4 Hemoglobin A1c - 05/22/16 09:39 Hemoglobin A1c 5.8 % 4.5-6.2 Comprehensive metabolic panel - 05/22/16 09:39 Serum or plasma sodium measurement (moles/volume) 141 mmol/L 135-145 Serum or plasma potassium measurement (moles/volume) 3.6 mmol/L 3.6-5.0 Serum or plasma chloride measurement (moles/volume) 104 mmol/L 98-107 Carbon dioxide 29 mmol/L 21-32 Serum or plasma anion gap determination (moles/volume) 8 mmol/L 5-14 Serum or plasma urea nitrogen measurement (mass/volume) 14 mg/dL 7-18 Serum or plasma creatinine measurement (mass/volume) 0.80 mg/dL 0.60-1.30 Serum or plasma urea nitrogen/creatinine mass ratio 18 NRG Serum or plasma creatinine measurement with calculation of estimated glomerular filtration rate > NRG Serum or plasma glucose measurement (mass/volume) 93 mg/dL 70-105 Serum or plasma calcium measurement (mass/volume) 9.4 mg/dL 8.5-10.1 Serum or plasma total bilirubin measurement (mass/volume) 0.6 mg/dL 0.1-1.0 Serum or plasma alkaline phosphatase measurement (enzymatic activity/volume) 68 U/L 40-136 Serum or plasma aspartate aminotransferase measurement (enzymatic activity/ volume) 13 U/L 5-34 Serum or plasma alanine aminotransferase measurement (enzymatic activity/volume ) 11 U/L 0-55 Serum or plasma protein measurement (mass/volume) 7.6 g/dL 6.4-8.2 Serum or plasma albumin measurement (mass/volume) 4.2 g/dL 3.2-4.5 Magnesium - 05/22/16 09:39 Magnesium 2.3 mg/dL 1.8-2.4 Lipid 1996 panel - 05/22/16 09:39 Serum or plasma triglyceride measurement (mass/volume) 102 mg/dL <150 Serum or plasma cholesterol measurement (mass/volume) 180 mg/dL < 200 Serum or plasma cholesterol in HDL measurement (mass/volume) 43 mg/ dL 40-60 Cholesterol in LDL [mass/volume] in serum or plasma by direct assay 127 mg/dL 1-129 Serum or plasma cholesterol in VLDL measurement (mass/volume) 20 mg/ dL 5-40 THYROID STIMULATING HORMONE - 05/22/16 09:39 THYROID STIMULATING HORMONE 0.58 u[iU]/mL 0.35-4.94 Serum or plasma folate measurement (mass/volume) - 05/22/16 09:39 Serum or plasma folate measurement (mass/volume) 15.1 % 1.5-24.0 Serum or plasma insulin measurement (units/volume) - 05/22/16 09:39 Insulin [mass/volume] in serum or plasma 25.7 m[iU]/L 6.0 -27.0 Cyanocobalamin measurement - 05/22/16 09:39 Vitamin B12 608 pg/mL 200-1000 25-hydroxyvitamin D measurement - 05/22/16 09:39 25-hydroxy vitamin D measurement 31 % 30-100 Serum or plasma creatinine measurement (mass/volume) - 05/22/16 09:39 Serum or plasma creatinine measurement (mass/volume) 0.80 mg/dL 0.60-1.30 Urine collection time duration - 06/01/16 08:00 Urine collection time duration 24 h NRG 24 hour urine specimen volume measurement - 06/01/16 08:00 24 hour urine specimen volume measurement 1800 mL NRG Determination of height - 06/01/16 08:00 Determination of height 69 [in_us] NRG Measure weight - 06/01/16 08:00 Measure weight 253 [lb_ap] NRG Determination of body surface area - 06/01/16 08:00 Determination of body surface area 2.28 NRG Urine creatinine measurement (mass/volume) - 06/01/16 08:00 Urine creatinine measurement (mass/volume) 101 mg/dL 30- 125 Serum or plasma creatinine measurement (mass/volume) - 06/01/16 08:00 Serum or plasma creatinine measurement (mass/volume) 0.80 mg/dL 0.60-1.30 Creatinine ur 24hr - 06/01/16 08:00 Creatinine ur 24hr 1818 mg 800-1700 Renal creatinine clearance measurement - 06/01/16 08:00 Renal creatinine clearance measurement 120 mL 80-110 Urine 5-hydroxyindoleacetate measurement (mass/volume) - 06/01/16 08:00 Confirmatory urine 5-hydroxyindole acetic acid (5-HIAA) measurement (mass/ volume) 3.8 mg/L NRG 24 hour urine serotonin measurement (mass/time) 4 mg/g{Cre} 0-14 Interpretation of urine 5-hydroxyindole acetic acid (HIAA) measurement SEE FOOTNOTE NRG Creatinine measurement (moles/volume) 112 mg/dL NRG Urine 5-hydroxyindoleacetate/creatinine mass ratio 2016 mg 700-1600 24 hour urine catecholamines measurement (mass/volume) - 06/01/16 08:00 Urine epinephrine measurement (mass/volume) 2 % 1-7 Urine norepinephrine measurement (mass/volume) 95 H % 16 -71 24 hour urine dopamine measurement (mass/time) 310 % 77- 324 Timed urine creatinine measurement (mass/volume) 112 mg/dL NRG Urine catecholamines interpretation narrative SEE FOOTNOTE NRG Dopamine/creatinine [mass ratio] in urine 154 ug/g{Cre} 0 -250 24 hour urine norepinephrine/creatinine mass ratio 47 H 0-45 24 hour urine epinephrine/creatinine mass ratio 1 ug/g{Cre} 0-20 Dopamine [Mass/volume] in Urine 172 % NRG 24 hour urine vanillylmandelate measurement (mass/volume) - 06/01/16 08:00 24 hour urine vanillylmandelate measurement (mass/time) 3.2 NRG Urine vanillylmandelic acid (VMA)/creatinine ratio measurement 3 mg/ g{Cre} 0-6 Interpretation of vanillylmandelic acid (VMA) measurement SEE FOOTNOTE NRG Complete urinalysis with reflex to culture - 09/12/16 09:50 Urine color determination YELLOW NRG Urine clarity determination CLEAR NRG Urine pH measurement by test strip 6.5 5-9 Specific gravity of urine by test strip 1.015 1.016- 1.022 Urine protein assay by test strip, semi-quantitative NEGATIVE NEGATIVE Urine glucose detection by automated test strip NEGATIVE NEGATIVE Erythrocytes detection in urine sediment by light microscopy NEGATIVE NEGATIVE Urine ketones detection by automated test strip NEGATIVE NEGATIVE Urine nitrite detection by test strip NEGATIVE NEGATIVE Urine total bilirubin detection by test strip NEGATIVE NEGATIVE Urine urobilinogen measurement by automated test strip (mass/volume) NORMAL NORMAL Urine leukocyte esterase detection by dipstick NEGATIVE NEGATIVE Automated urine sediment erythrocyte count by microscopy (number/high power field) NONE NRG Automated urine sediment leukocyte count by microscopy (number/high power field ) NONE NRG Bacteria detection in urine sediment by light microscopy TRACE NRG Squamous epithelial cells detection in urine sediment by light microscopy 5-10 NRG Crystals detection in urine sediment by light microscopy NONE NRG Casts detection in urine sediment by light microscopy NONE NRG Mucus detection in urine sediment by light microscopy NEGATIVE NRG Complete urinalysis with reflex to culture NO NRG Urine protein/creatinine mass ratio - 09/12/16 09:50 Urine protein measurement (mass/volume) < mg/dL 6-12 Urine creatinine measurement (mass/volume) 63 mg/dL 30- 125 Urine protein/creatinine mass ratio TNP NRG Automated blood complete blood count (hemogram) panel - 09/12/16 10:05 Blood leukocytes automated count (number/volume) 6.9 10*3/uL 4.3-11.0 Blood erythrocytes automated count (number/volume) 4.11 10*6/uL 4.35-5.85 Venous blood hemoglobin measurement (mass/volume) 11.8 g/dL 11.5-16.0 Blood hematocrit (volume fraction) 37 % 35-52 Automated erythrocyte mean corpuscular volume 89 [foz_us] 80-99 Automated erythrocyte mean corpuscular hemoglobin (mass per erythrocyte) 29 pg 25-34 Automated erythrocyte mean corpuscular hemoglobin concentration measurement ( mass/volume) 32 g/dL 32-36 Automated erythrocyte distribution width ratio 13.9 % 10.0-14.5 Automated blood platelet count (count/volume) 280 10*3/uL 130-400 Automated blood platelet mean volume measurement 10.0 [foz_us] 7.4-10.4 Comprehensive metabolic panel - 09/12/16 10:05 Serum or plasma sodium measurement (moles/volume) 140 mmol/L 135-145 Serum or plasma potassium measurement (moles/volume) 3.3 mmol/L 3.6-5.0 Serum or plasma chloride measurement (moles/volume) 102 mmol/L 98-107 Carbon dioxide 28 mmol/L 21-32 Serum or plasma anion gap determination (moles/volume) 10 mmol/L 5-14 Serum or plasma urea nitrogen measurement (mass/volume) 13 mg/dL 7-18 Serum or plasma creatinine measurement (mass/volume) 0.74 mg/dL 0.60-1.30 Serum or plasma urea nitrogen/creatinine mass ratio 18 NRG Serum or plasma creatinine measurement with calculation of estimated glomerular filtration rate > NRG Serum or plasma glucose measurement (mass/volume) 94 mg/dL 70-105 Serum or plasma calcium measurement (mass/volume) 9.4 mg/dL 8.5-10.1 Serum or plasma total bilirubin measurement (mass/volume) 0.4 mg/dL 0.1-1.0 Serum or plasma alkaline phosphatase measurement (enzymatic activity/volume) 63 U/L 40-136 Serum or plasma aspartate aminotransferase measurement (enzymatic activity/ volume) 12 U/L 5-34 Serum or plasma alanine aminotransferase measurement (enzymatic activity/volume ) 11 U/L 0-55 Serum or plasma protein measurement (mass/volume) 7.7 g/dL 6.4-8.2 Serum or plasma albumin measurement (mass/volume) 4.0 g/dL 3.2-4.5 Serum or plasma renal function panel (Na, K, Cl, CO2, BUN, Cr, glucose,Ca, phos , alb) - 09/12/16 10:05 Serum or plasma phosphate measurement (mass/volume) 3.1 mg/dL 2.3-4.7 THYROID STIMULATING HORMONE - 09/12/16 10:05 THYROID STIMULATING HORMONE 0.58 u[iU]/mL 0.35-4.94 Serum or plasma thyroxine (T4) free measurement (mass/volume) - 09/12/16 10:05 Serum or plasma thyroxine (T4) free measurement (mass/volume) 1.01 ng/dL 0.70-1.48 Serum or plasma folate measurement (mass/volume) - 09/12/16 10:05 Serum or plasma folate measurement (mass/volume) > % 1.5- 24.0 Serum iron and total iron binding capacity panel - 09/12/16 10:05 Serum or plasma iron measurement (mass/volume) 48 % 35- 180 Total iron binding capacity and transferrin saturation measurement 11 % 15-50 Iron binding capacity [mass/volume] in serum or plasma 425 % 280-380 UIBC (unsaturated iron binding capacity) 377 % NRG Serum or plasma ferritin measurement (mass/volume) 18.0 % 15.0-150.0 Serum or plasma thiamine measurement (mass/volume) - 09/12/16 10:05 Serum or plasma thiamine measurement (moles/volume) 92 % 70-180 Cyanocobalamin measurement - 09/12/16 10:05 Vitamin B12 404 pg/mL 200-1000 Serum or plasma calcitriol measurement (mass/volume) - 09/12/16 10:05 Serum or plasma calcitriol measurement (mass/volume) 53.4 pg/mL 19.9-79.3 Methicillin resistant Staphylococcus aureus (MRSA) screening culture - 15:37 MRSA SCREEN RESULT MRSA ISOLATED NRG Complete blood count (CBC) with automated white blood cell (WBC) differential - 03/05/17 15:40 Blood leukocytes automated count (number/volume) 8.8 10*3/uL 4.3-11.0 Blood erythrocytes automated count (number/volume) 4.18 10*6/uL 4.35-5.85 Venous blood hemoglobin measurement (mass/volume) 11.9 g/dL 11.5-16.0 Blood hematocrit (volume fraction) 36 % 35-52 Automated erythrocyte mean corpuscular volume 87 [foz_us] 80-99 Automated erythrocyte mean corpuscular hemoglobin (mass per erythrocyte) 29 pg 25-34 Automated erythrocyte mean corpuscular hemoglobin concentration measurement ( mass/volume) 33 g/dL 32-36 Automated erythrocyte distribution width ratio 14.0 % 10.0-14.5 Automated blood platelet count (count/volume) 281 10*3/uL 130-400 Automated blood platelet mean volume measurement 10.4 [foz_us] 7.4-10.4 Automated blood neutrophils/100 leukocytes 54 % 42-75 Automated blood lymphocytes/100 leukocytes 39 % 12-44 Blood monocytes/100 leukocytes 6 % 0-12 Automated blood eosinophils/100 leukocytes 1 % 0-10 Automated blood basophils/100 leukocytes 0 % 0-10 Blood neutrophils automated count (number/volume) 4.7 10*3 1.8-7.8 Blood lymphocytes automated count (number/volume) 3.4 10*3 1.0-4.0 Blood monocytes automated count (number/volume) 0.5 10*3 0.0-1.0 Automated eosinophil count 0.1 10*3/uL 0.0-0.3 Automated blood basophil count (count/volume) 0.0 10*3/uL 0.0-0.1 Comprehensive metabolic panel - 03/05/17 15:40 Serum or plasma sodium measurement (moles/volume) 139 mmol/L 135-145 Serum or plasma potassium measurement (moles/volume) 3.4 mmol/L 3.6-5.0 Serum or plasma chloride measurement (moles/volume) 101 mmol/L 98-107 Carbon dioxide 29 mmol/L 21-32 Serum or plasma anion gap determination (moles/volume) 9 mmol/L 5-14 Serum or plasma urea nitrogen measurement (mass/volume) 14 mg/dL 7-18 Serum or plasma creatinine measurement (mass/volume) 0.82 mg/dL 0.60-1.30 Serum or plasma urea nitrogen/creatinine mass ratio 17 NRG Serum or plasma creatinine measurement with calculation of estimated glomerular filtration rate > NRG Serum or plasma glucose measurement (mass/volume) 88 mg/dL 70-105 Serum or plasma calcium measurement (mass/volume) 9.2 mg/dL 8.5-10.1 Serum or plasma total bilirubin measurement (mass/volume) 0.3 mg/dL 0.1-1.0 Serum or plasma alkaline phosphatase measurement (enzymatic activity/volume) 72 U/L 40-136 Serum or plasma aspartate aminotransferase measurement (enzymatic activity/ volume) 12 U/L 5-34 Serum or plasma alanine aminotransferase measurement (enzymatic activity/volume ) 13 U/L 0-55 Serum or plasma protein measurement (mass/volume) 7.9 g/dL 6.4-8.2 Serum or plasma albumin measurement (mass/volume) 4.0 g/dL 3.2-4.5 Magnesium - 03/05/17 15:40 Magnesium 2.3 mg/dL 1.8-2.4 Blood type T Indirect antibody screen panel - 03/05/17 15:40 ABO+Rh group OP NRG Blood group antibody screen NEGATIVE NRG Serum or plasma folate measurement (mass/volume) - 03/05/17 15:40 Serum or plasma folate measurement (mass/volume) 11.0 % 1.5-24.0 Cyanocobalamin measurement - 03/05/17 15:40 Vitamin B12 616 pg/mL 200-1000 25-hydroxyvitamin D measurement - 03/05/17 15:40 25-hydroxy vitamin D measurement 37 % 30-100 Urine beta human chorionic gonadotropin (hCG) measurement - 03/10/17 06:15 Urine beta human chorionic gonadotropin (hCG) measurement NEGATIVE NEGATIVE Blood type T Indirect antibody screen panel - 03/10/17 06:30 ABO+Rh group OP NRG Transfusion band number [id number] NRG Blood group antibody screen NEGATIVE NRG Automated blood complete blood count (hemogram) panel - 12/18/17 08:30 Blood leukocytes automated count (number/volume) 7.1 10*3/uL 4.3-11.0 Blood erythrocytes automated count (number/volume) 4.55 10*6/uL 4.35-5.85 Venous blood hemoglobin measurement (mass/volume) 13.1 g/dL 11.5-16.0 Blood hematocrit (volume fraction) 40 % 35-52 Automated erythrocyte mean corpuscular volume 87 [foz_us] 80-99 Automated erythrocyte mean corpuscular hemoglobin (mass per erythrocyte) 29 pg 25-34 Automated erythrocyte mean corpuscular hemoglobin concentration measurement ( mass/volume) 33 g/dL 32-36 Automated erythrocyte distribution width ratio 14.8 % 10.0-14.5 Automated blood platelet count (count/volume) 281 10*3/uL 130-400 Automated blood platelet mean volume measurement 9.9 [foz_us] 7.4-10.4 Complete blood count (CBC) with automated white blood cell (WBC) differential - 12/18/17 08:30 Blood leukocytes automated count (number/volume) 7.0 10*3/uL 4.3-11.0 Blood erythrocytes automated count (number/volume) 4.55 10*6/uL 4.35-5.85 Venous blood hemoglobin measurement (mass/volume) 13.0 g/dL 11.5-16.0 Blood hematocrit (volume fraction) 40 % 35-52 Automated erythrocyte mean corpuscular volume 88 [foz_us] 80-99 Automated erythrocyte mean corpuscular hemoglobin (mass per erythrocyte) 29 pg 25-34 Automated erythrocyte mean corpuscular hemoglobin concentration measurement ( mass/volume) 33 g/dL 32-36 Automated erythrocyte distribution width ratio 14.7 % 10.0-14.5 Automated blood platelet count (count/volume) 283 10*3/uL 130-400 Automated blood platelet mean volume measurement 10.1 [foz_us] 7.4-10.4 Automated blood neutrophils/100 leukocytes 59 % 42-75 Automated blood lymphocytes/100 leukocytes 34 % 12-44 Blood monocytes/100 leukocytes 6 % 0-12 Automated blood eosinophils/100 leukocytes 1 % 0-10 Automated blood basophils/100 leukocytes 0 % 0-10 Blood neutrophils automated count (number/volume) 4.1 10*3 1.8-7.8 Blood lymphocytes automated count (number/volume) 2.4 10*3 1.0-4.0 Blood monocytes automated count (number/volume) 0.4 10*3 0.0-1.0 Automated eosinophil count 0.1 10*3/uL 0.0-0.3 Automated blood basophil count (count/volume) 0.0 10*3/uL 0.0-0.1 Serum or plasma renal function panel (Na, K, Cl, CO2, BUN, Cr, glucose,Ca, phos , alb) - 12/18/17 08:30 Serum or plasma sodium measurement (moles/volume) 140 mmol/L 135-145 Serum or plasma potassium measurement (moles/volume) 3.3 mmol/L 3.6-5.0 Serum or plasma chloride measurement (moles/volume) 104 mmol/L 98-107 Carbon dioxide 26 mmol/L 21-32 Serum or plasma anion gap determination (moles/volume) 10 mmol/L 5-14 Serum or plasma urea nitrogen measurement (mass/volume) 12 mg/dL 7-18 Serum or plasma creatinine measurement (mass/volume) 0.77 mg/dL 0.60-1.30 Serum or plasma urea nitrogen/creatinine mass ratio 16 NRG Serum or plasma creatinine measurement with calculation of estimated glomerular filtration rate > NRG Serum or plasma glucose measurement (mass/volume) 96 mg/dL 70-105 Serum or plasma calcium measurement (mass/volume) 9.5 mg/dL 8.5-10.1 Serum or plasma albumin measurement (mass/volume) 4.3 g/dL 3.2-4.5 Serum or plasma phosphate measurement (mass/volume) 3.0 mg/dL 2.3-4.7 Magnesium - 12/18/17 08:30 Magnesium 2.6 mg/dL 1.8-2.4 Comprehensive metabolic panel - 12/18/17 08:30 Serum or plasma sodium measurement (moles/volume) 140 mmol/L 135-145 Serum or plasma potassium measurement (moles/volume) 3.3 mmol/L 3.6-5.0 Serum or plasma chloride measurement (moles/volume) 104 mmol/L 98-107 Carbon dioxide 27 mmol/L -32 Serum or plasma anion gap determination (moles/volume) 9 mmol/L 5-14 Serum or plasma urea nitrogen measurement (mass/volume) 12 mg/dL 7-18 Serum or plasma creatinine measurement (mass/volume) 0.77 mg/dL 0.60-1.30 Serum or plasma urea nitrogen/creatinine mass ratio 16 NRG Serum or plasma creatinine measurement with calculation of estimated glomerular filtration rate > NRG Serum or plasma glucose measurement (mass/volume) 97 mg/dL 70-105 Serum or plasma calcium measurement (mass/volume) 9.6 mg/dL 8.5-10.1 Serum or plasma total bilirubin measurement (mass/volume) 0.6 mg/dL 0.1-1.0 Serum or plasma alkaline phosphatase measurement (enzymatic activity/volume) 82 U/L 40-136 Serum or plasma aspartate aminotransferase measurement (enzymatic activity/ volume) 13 U/L 5-34 Serum or plasma alanine aminotransferase measurement (enzymatic activity/volume ) 16 U/L 0-55 Serum or plasma protein measurement (mass/volume) 8.2 g/dL 6.4-8.2 Serum or plasma albumin measurement (mass/volume) 4.4 g/dL 3.2-4.5 CALCIUM CORRECTED 9.3 mg/dL 8.5-10.1 Lipid 1996 panel - 12/18/17 08:30 Serum or plasma triglyceride measurement (mass/volume) 74 mg/dL <150 Serum or plasma cholesterol measurement (mass/volume) 169 mg/dL < 200 Serum or plasma cholesterol in HDL measurement (mass/volume) 44 mg/ dL 40-60 Cholesterol in LDL [mass/volume] in serum or plasma by direct assay 117 mg/dL 1-129 Serum or plasma cholesterol in VLDL measurement (mass/volume) 15 mg/ dL 5-40 THYROID STIMULATING HORMONE - 12/18/17 08:30 THYROID STIMULATING HORMONE 0.70 u[iU]/mL 0.35-4.94 Complete urinalysis with reflex to culture - 12/18/17 08:35 Urine color determination YELLOW NRG Urine clarity determination CLEAR NRG Urine pH measurement by test strip 6 5-9 Specific gravity of urine by test strip 1.015 1.016- 1.022 Urine protein assay by test strip, semi-quantitative NEGATIVE NEGATIVE Urine glucose detection by automated test strip NEGATIVE NEGATIVE Erythrocytes detection in urine sediment by light microscopy NEGATIVE NEGATIVE Urine ketones detection by automated test strip NEGATIVE NEGATIVE Urine nitrite detection by test strip NEGATIVE NEGATIVE Urine total bilirubin detection by test strip NEGATIVE NEGATIVE Urine urobilinogen measurement by automated test strip (mass/volume) NORMAL NORMAL Urine leukocyte esterase detection by dipstick NEGATIVE NEGATIVE Automated urine sediment erythrocyte count by microscopy (number/high power field) NONE NRG Automated urine sediment leukocyte count by microscopy (number/high power field ) NONE NRG Bacteria detection in urine sediment by light microscopy FEW NRG Squamous epithelial cells detection in urine sediment by light microscopy 10-25 NRG Crystals detection in urine sediment by light microscopy NONE NRG Casts detection in urine sediment by light microscopy NONE NRG Mucus detection in urine sediment by light microscopy NEGATIVE NRG Complete urinalysis with reflex to culture NO NRG Urine protein/creatinine mass ratio - 12/18/17 08:35 Urine protein measurement (mass/volume) 8 mg/dL 6-12 Urine creatinine measurement (mass/volume) 126 mg/dL 30- 125 Urine protein/creatinine mass ratio 0.06 NRG Encounters ACCT No. Visit Date/Time Discharge Status Pt. Type Provider Facility Loc./Unit Complaint [id number] 01/27/2018 07:11:00 01/27/2018 23:59:59 CLS Outpatient BOONE MUÑOZ MD [facility] CARD APNEA,SLEEP,HTN,MR [id number] 01/19/2018 12:48:00 01/19/2018 23:59:59 CLS Outpatient BOONE MUÑOZ MD [facility] CARD APNEA,SLEEP,HTN,MR [id number] 01/14/2018 13:46:00 01/14/2018 23:59:59 CLS Outpatient DESIRE CRUZ APRN [facility] RAD THYROID NODULE [id number] 01/04/2018 14:05:00 01/04/2018 23:59:59 CLS Outpatient KATTY GARZA DO [facility] LAB Z84.1 [id number] 12/18/2017 07:37:00 12/18/2017 23:59:59 CLS Outpatient KATTY GARZA DO [facility] LAB I10 [id number] 12/18/2017 07:34:00 12/18/2017 23:59:59 CLS Outpatient DESIRE CRUZ APRN [facility] LAB ESSENTIAL HYPTERTENSION [id number] 03/10/2017 06:13:00 03/11/2017 10:30:00 DIS Outpatient VENECIA DE LA TORRE DO [facility] ENDOMETRIOSIS; GALLSTONES [id number] 03/05/2017 15:11:00 03/05/2017 23:59:59 CLS Outpatient LUIZA BARBOSA [facility] Z98.890 [id number] 03/05/2017 15:05:00 03/05/2017 15:50:00 DIS Outpatient VENECIA DE LA TORRE DO [facility] PREOP ENDOMETRIOSIS; GALLSTONES [id number] 10/15/2016 08:44:00 10/15/2016 23:59:59 CLS Outpatient DE LA TORREVENECIA Napier DO [facility] LAB N97.9 [id number] 10/10/2016 07:39:00 10/10/2016 23:59:59 CLS Outpatient DE LA TORREVENECIA Napier DO [facility] LAB N97.9 [id number] 09/12/2016 08:40:00 09/12/2016 23:59:59 CLS Outpatient LUIZA BARBOSA [employer] [facility] LAB HIGH URINE CREATINE [id number] 09/12/2016 08:21:00 09/12/2016 23:59:59 CLS Outpatient WIL VENECIA [facility] LAB E55.9,Z87.19 [id number] 07/03/2016 14:00:00 07/03/2016 23:59:59 CLS Preadmit OKSANA GREEN MD [facility] PREOP CHRONIC TONISLITIS [id number] 04/03/2016 11:09:00 07/02/2016 00:01:00 DIS Outpatient OKSANA GREEN MD [facility] PREOP CHRONIC TONISLITIS [id number] 06/01/2016 08:00:00 06/01/2016 23:59:59 CLS Outpatient BOONE MUÑOZ MD [facility] LAB HTN, OMI ON CPAP, OBESITY , SKIN RASH [id number] 05/19/2016 14:22:00 05/23/2016 02:15:00 DIS Outpatient BOONE MUÑOZ MD [facility] LAB HTN,OMI ON CPAP,SKIN RASH ,OBESITY [id number] 05/22/2016 08:38:00 05/22/2016 23:59:59 CLS Outpatient BOONE MUÑOZ MD [facility] RAD HTN,OMI ON CPAP,SKIN RASH ,OBESITY [id number] 05/22/2016 07:59:00 05/22/2016 23:59:59 CLS Outpatient LUIAZ BARBOSA [employer] [facility] LAB STATUS POST GASTRIC SLEEVE [id number] 05/21/2016 15:00:00 05/21/2016 23:59:59 CLS Outpatient MADL, LUIZA L [employer] [facility] RAD INTRACTABLE MIGRAINE W/O AURA [id number] 05/14/2016 19:15:00 05/14/2016 23:59:59 CLS Outpatient MADL, LUIZA L [employer] [facility] 4THo INTRACTABLE MIGRAINE WITHOUT AURA STATUS [id number] 04/10/2016 06:57:00 04/10/2016 12:25:00 DIS Outpatient PETER GO, OKSANA Salguero [facility] SDC CHRONIC TONSILITIS [id number] 02/04/2016 13:17:00 02/04/2016 23:59:59 CLS Outpatient MADL, LUIZA L [employer] [facility] RAD THYROID NODULE [id number] 02/01/2016 07:47:00 02/01/2016 23:59:59 CLS Outpatient MADL, LUIZA L [employer] [facility] LAB Z98.890 [id number] 11/27/2015 09:36:00 11/27/2015 23:59:59 CLS Outpatient MADL, LUIZA L [employer] [facility] RAD SPLENIC ABSCESS [id number] 11/21/2015 12:26:00 11/21/2015 23:59:59 CLS Outpatient MADL, LUIZA L [employer] [facility] RAD HISTORY OF PNEUMOCOCCAL PNEUMONIA,GASTRIC SURGERY [id number] 10/03/2015 23:50:00 10/19/2015 15:30:00 DIS Inpatient CHARLEY GO, KHLOE [facility] 4TH FEVER;DYSPNEA(EFFUSION- ATELECATSIS)APPARENT [id number] 09/29/2015 10:55:00 09/29/2015 15:15:00 DIS Emergency LUIS GEIGER MD [facility] ER FEVER [id number] 09/23/2015 17:12:00 09/23/2015 20:43:00 DIS Emergency ALEXA TAYLOR APRN [facility] ER FEVER/L ABD PAIN,SOA POST OP [id number] 09/13/2015 11:27:00 09/14/2015 14:18:00 DIS Inpatient KHLOE WHITEHEAD MD [facility] SURGICAL MORBID OBESITY [id number] 09/04/2015 12:21:00 09/04/2015 14:46:00 DIS Outpatient KHLOE WHITEHEAD MD [facility] PREOP MORBID OBESITY [id number] 07/13/2015 07:22:00 07/13/2015 23:59:59 CLS Outpatient MADL, LUIZA L [employer] [facility] LAB HTN [id number] 07/10/2015 14:49:00 07/10/2015 23:59:59 CLS Outpatient VAISHNAVI PASCUAL MD [facility] CARD PERIPHERAL EDEMA [id number] 06/28/2015 14:53:00 06/28/2015 23:59:59 CLS Outpatient MADL, LUIZA L [employer] [facility] RAD THYROID ENLARGEMENT [id number] 06/14/2015 14:53:00 06/14/2015 23:59:59 CLS Outpatient MADL, LUIZA L [employer] [facility] RAD LOW BACK PAIN [id number] 05/21/2015 14:36:00 05/21/2015 23:59:59 CLS Outpatient MADL, LUIZA L [employer] [facility] RAD LOW BACK PAIN [id number] 05/16/2015 07:53:00 05/16/2015 23:59:59 CLS Outpatient KHLOE WHITEHEAD MD [facility] RAD REFLUX [id number] 05/07/2015 15:06:00 05/07/2015 23:59:59 CLS Outpatient MADL, LUIZA L [employer] [facility] RAD LOW BACK PAIN [id number] 04/12/2015 07:16:00 04/12/2015 23:59:59 CLS Outpatient MADL, LUIZA L [employer] [facility] LAB HISTORY OF PREDIABETES [id number] 03/13/2015 15:17:00 03/13/2015 23:59:59 CLS Outpatient VENECIA DE LA TORRE DO [facility] RAD SWELLING [id number] 12/29/2014 09:33:00 12/29/2014 14:28:00 DIS Outpatient VENECIA DE LA TORRE DO [facility] COMPLEX RIGHT ADENEXAL CYST; DYSMENORRHEA [id number] 12/27/2014 11:43:00 12/27/2014 23:59:59 CLS Outpatient VENECIA DE LA TORRE DO [facility] PREOP COMPLEX RIGHT ADENEXAL CYST; DYSMENORRHEA [id number] 12/13/2014 08:03:00 12/13/2014 23:59:59 CLS Outpatient MADLASHISHA L [employer] [facility] LAB OVARIAN MASS [id number] 12/05/2014 12:58:00 12/05/2014 23:59:59 CLS Outpatient MADLASHISHA L [employer]ER [facility] RAD PELVIC PAIN [id number] 11/18/2014 23:29:00 11/19/2014 03:14:00 DIS Emergency JUANJO GO, LUIS Puri [facility] ER FEVER [id number] 07/08/2013 08:36:00 07/08/2013 23:59:59 CLS Outpatient BINA DHILLON MD [facility] LOWER GI BLEED [id number] 07/07/2013 09:43:00 07/07/2013 23:59:59 CLS Outpatient BINA DHILLON MD [facility] PREOP LOWER GI BLEED [id number] 04/18/2013 10:06:00 04/18/2013 23:59:59 CLS Outpatient RAJDHEERAJEJOSE A [employer] [facility] RAD ABD PAIN,RUQ PAIN [id number] 03/22/2013 08:12:00 03/22/2013 23:59:59 CLS Outpatient RAJDHEERAJE JOSE A [employer] [facility] RAD RUQ PAIN [id number] 02/05/2018 09:00:00 PEN Preadmit TONI GO, BOONE Loredo [facility] CATH ABN ECHO [id number] 05/24/2014 10:58:00 05/24/2014 23:59:59 CLS Outpatient LUIZA BARBOSA APRN [id number] 04/14/2014 16:08:00 04/14/2014 23:59:59 CLS Outpatient DAVIE ZUÑIGA MARINA R [id number] 04/06/2014 15:52:00 04/06/2014 23:59:59 CLS Outpatient DAVIE ZUÑIGA MARINA R [id number] 02/22/2014 13:19:00 02/22/2014 23:59:59 CLS Outpatient DANIEL ZUÑIGA JOSE A [id number] 01/04/2014 08:23:00 01/04/2014 23:59:59 CLS Outpatient DAVIE ZUÑIGA MARINA R [id number] 09/23/2013 09:27:00 09/23/2013 23:59:59 CLS Outpatient DAVIE ZUÑIGA MARINA R [id number] 07/27/2013 11:00:00 07/27/2013 23:59:59 CLS Outpatient CAROLYN SOUTH DO [id number] 06/10/2013 15:22:00 06/10/2013 23:59:59 CLS Outpatient DAVIE ZUÑIGA MARINA R [id number] 04/08/2013 15:46:00 04/08/2013 23:59:59 CLS Outpatient CORNELIO SANCHEZ APRNYL A [id number] 10/13/2012 09:27:00 10/13/2012 23:59:59 CLS Outpatient [id number] 07/20/2012 08:34:00 07/20/2012 23:59:59 CLS Outpatient CORNELIO SANCHEZ APRNYL A [id number] 04/22/2012 16:21:00 04/22/2012 23:59:59 CLS Outpatient TERRY PERSON APRN S [id number] 02/18/2012 10:14:01 02/18/2012 23:59:59 CLS Outpatient FRANCISCO PERSON APRNA S [id number] 09/29/2012 13:53:00 Document Registration [id number] 12/29/2014 09:33:48 ACT Document Registration [id number] 02/01/2018 16:26:28 02/01/2018 23:59:59 CLS Outpatient
[2018-02-05] MEDS ORDERED: HEParin (CATH LAB) 2,000 ML IV ONE (07:06)
[2018-02-05] MEDS ORDERED: LIDOCAINE 2% VISCOUS 15 ML UDC ONE ×2 (07:06→09:37)
[2018-02-05] MEDS ORDERED: LIDOCAINE 1% INJ 20 ML 20 ML VIAL ONE (07:06)
[2018-02-05] MEDS ORDERED: NS IV 1000 ML 1,000 ML ONE (07:06)
[2018-02-05] MEDS ORDERED: NS IV 1000 ML 1,000 ML IV SCH ×2 (07:15→10:20)
[2018-02-05] MEDS ORDERED: fentaNYL INJECTION 100 MCG/2 ML AMP ONE (07:24)
[2018-02-05] MEDS ORDERED: MIDAZOLAM 5 MG/5 ML (VERSED) VIAL ONE ×2 (07:24→09:36)
[2018-02-05] MEDS ORDERED: HEParin 1000 UNIT/ML (10ML VIAL) FOR BOLUS ONE (07:25)
[2018-02-05] MEDS ORDERED: CLON1PAT33 TD (07:31)
[2018-02-05] MEDS ORDERED: AMLO10TA6 PO (07:36)
[2018-02-05] MEDS ORDERED: LOSA100T8 PO (07:36)
[2018-02-05] MEDS ORDERED: NEBI5TAB8 PO (07:36)
[2018-02-05] MEDS ORDERED: ESTR10TA9 PO (07:36)
[2018-02-05] MEDS ORDERED: FLUO40CA12 PO (07:36)
[2018-02-05] MEDS ORDERED: ESTRADIOL 1 MG PO (07:39)
[2018-02-05] MEDS ORDERED: MEDR5TAB4 PO (07:39)
[2018-02-05] MEDS ORDERED: NITRO DRIP 25000 MCG/D5W 250 ML IV ONE (07:40)
[2018-02-05] MEDS ORDERED: VERAPAMIL 5 MG/2 ML (CALAN) VIAL IV ONE (07:40)
[2018-02-05 07:52] LABS: HEMOGLOBIN 11.8 G/DL (11.5-16.0); MEAN PLATELET VOLUME 9.7 FL (7.4-10.4); RED BLOOD COUNT 3.99 10^6/uL (4.35-5.85); RED CELL DISTRIBUTION WIDTH 14.8 % (10.0-14.5); WHITE BLOOD COUNT 5.5 10^3/uL (4.3-11.0)
[2018-02-05 08:03] LABS: BILIRUBIN,URINE NEGATIVE (NEGATIVE); CLARITY,URINE CLEAR; COLOR,URINE YELLOW; GLUCOSE, URINE (UA) NEGATIVE (NEGATIVE); KETONES,URINE NEGATIVE (NEGATIVE); LEUKOCYTE ESTERASE ,URINE NEGATIVE (NEGATIVE); NITRITE,URINE NEGATIVE (NEGATIVE); PH,URINE 7 (5-9); PROTEIN,URINE NEGATIVE (NEGATIVE); UROBILINOGEN,URINE NORMAL (NORMAL)
[2018-02-05 08:09] LABS: INR 1.1 (0.8-1.4); PROTHROMBIN TIME PATIENT 13.8 SEC (12.2-14.7)
--- NOTE | 2018-02-05 08:15 | Diagnostic Imaging Report ---
INDICATION: Hypertension, dyspnea on exertion. TECHNIQUE: Single view chest 7:35 AM. CORRELATION STUDY: 11/21/2015 FINDINGS: Heart is slightly enlarged. Vasculature within normal limits. The lungs are clear with no consolidating infiltrate. There is no significant effusion or pneumothorax. IMPRESSION: 1. Borderline cardiac enlargement without evidence of for failure. Dictated by: Dictated on workstation # [id number]
[2018-02-05 08:17] LABS: BACTERIA,URINE NEGATIVE /HPF
[2018-02-05 08:20] LABS: ALANINE AMINOTRANSFERASE 24 U/L (0-55); ALBUMIN 4.3 GM/DL (3.2-4.5); ALKALINE PHOSPHATASE 69 U/L (40-136); BILIRUBIN,TOTAL 0.7 MG/DL (0.1-1.0); BUN/CREATININE RATIO 10; CALCIUM 9.3 MG/DL (8.5-10.1); CARBON DIOXIDE 22 MMOL/L (21-32); CHLORIDE 108 MMOL/L (98-107); CHOLESTEROL 171 MG/DL (< 200); CREATININE SERUM 0.88 MG/DL (0.60-1.30); GFR ESTIMATED > 60; GLUCOSE 90 MG/DL (70-105); HDL CHOLESTEROL 49 MG/DL (40-60); POTASSIUM 3.9 MMOL/L (3.6-5.0); SODIUM 141 MMOL/L (135-145); TOTAL PROTEIN 7.7 GM/DL (6.4-8.2); TRIGLYCERIDES 72 MG/DL (<150); VLDL CHOLESTEROL 14 MG/DL (5-40)
--- NOTE | 2018-02-05 08:39 | Cardiac Procedure Note-CS/ASA ---
Pre-Procedure Note Pre-Op Procedure Note H&P Reviewed The H&P was reviewed, patient examined and no changes noted. Date H&P Reviewed: Feb 05, 2018 Time H&P Reviewed: 08:38 Conscious Sedation Pre-Proced Time 08:39 ASA Score 3 For ASA 3 and 4: Consider anesthesia and medical clearance. Also, for patients with a history of failed moderate sedation consider anesthesia. Airway Lungs Heart ASA score ASA 1: a normal healthy patient ASA 2: a patient with a mild systemic disease (mid diabetes, controlled hypertension, obesity x ASA 3: a patient with a severe systemic disease that limits activity (angina , COPD, prior Myocardial infarction) ASA 4: a patient with an incapacitating disease that is a constant threat to life (CHF, renal failure) ASA 5: a moribund patient not expected to survive 24 hrs. (ruptured aneurysm) ASA 6: a declared brain patient whose organs are being harvested. For emergent operations, add the letter E after the classification Mallampati Classification Grade 3 Sedation Plan Analgesia, Amnesia, Plan communicated to team members, Discussed options with patient/fam, Discussed risks with patient/fam The patient is an appropriate candidate to undergo the planned procedure, sedation, and anesthesia. The patient immediately re-assessed prior to indication. BOONE MUÑOZ MD Feb 05, 2018 08:39
[2018-02-05] MEDS ORDERED: NFNEB10T PO (10:24)
--- NOTE | 2018-02-05 10:25 | Discharge Inst-Post CATH ---
Discharge Inst-CATH Post Cardiac Cath D/C Inst Follow Up/Plan Appointment with Dr. Chopra's office in 2 weeks CARDIAC CATH DISCHARGE INSTRUCTIONS *Hold Metformin for 48 hours post heart cath. ACTIVITY * Go Home directly and rest. * Limit activity of the leg (or wrist if it was used) for 7 days including aerobics, swimming, jogging, bicycling, etc. * Restrict stair-climbing for 7 days if possible, if not, climb up with your non -cath leg, then bring together on the same step. * Avoid lifting, pushing, pulling or excessive movement of the affected extremity for 7 days. * Customary sexual activity may be resumed after 2 days-use caution not to use a position that strains or causes pain to the affected extremity. * No driving for 24 hours. * NO SMOKING. * Avoid straining for bowel movements for 7 days. * Gentle walking on level ground is allowed. * Returning to work will depend on the type of procedure and the results. Your doctor will discuss this with you. CALL YOUR DOCTOR FOR ANY OF THE FOLLOWING: *If bleeding from the puncture site occurs- Apply gentle pressure to site with clean cloth and call your doctor or EMS. * If a knot or lump forms under the skin, increases in size, or causes pain. * If bruising appears to be worsening or moving further down your leg instead of disappearing. * Temperature above 101 F. CARE OF YOUR GROIN INCISION; * Bruising or purple discoloration of the skin near the puncture site is common. * You may shower only, no bathtub bathing for 5 days. Be careful to avoid slipping as your leg may feel stiff. * If a closure device was used on your femoral artery, please see the attached guide regarding care of the device and your leg. * Leave the dressing on, until removed by office staff. CARE OF YOUR WRIST INCISION; * Bruising or purple discoloration of the skin near the puncture site is common. * You may shower. * DO NOT submerge wrist. * Leave dressing on, until removed by office staff.. BOONE CHOPRA MD Feb 05, 2018 10:25
--- NOTE | 2018-02-05 10:29 | Cardiac Cath Report ---
Cardiac Cath Report Physician (s)/Visual Merchandise Manager (s) Physician BOONE MUÑOZ MD Pre-Procedure Diagnosis Pre-Procedure Diagnosis: Abnormal stress test, malignant hypertension Post-Procedure Note Procedure Start Date: Feb 05, 2018 Name of Procedure: Left heart catheterization Selective bilateral renal angiogram Findings/Procedure Note PROCEDURE NOTE: After explaining the procedure to the patient, all pros and cons were explained , all questions were answered. The patient signed the consent and then she was placed on the cardiac catheterization laboratory. Groin was prepped SL fashion local anesthesia was used. Sheath placed in the right radial artery. Quincy catheter was used to evaluate the coronaries, coronary angina Gram was done, advanced to the left ventricular cavity and pressure was measured, pullback LV to aorta was done. The catheter was exchanged over a long wire into Ryan right catheter that was advanced to the right renal artery selective angiogram was done then turned and intubated the left renal artery and selective angiogram was done. At the end of the procedure the sheath was removed. Closure device vascular band was used FINDINGS: Hemodynamics LV 123/18, end-diastolic pressure of 18 Aorta 123/80, mean of 102 ANATOMY: Left Main is free of obstructive disease Left Anterior Descending has mild disease nonobstructive disease Left Circumflex is codominant with mild disease nonobstructive disease Right Coronory Artery is codominant with mild disease obstructive disease LV Gram was not done, pressure was measured Selective right renal angiogram showed no obstructive disease Selective left renal angiogram showed no obstructive disease CONCLUSION: 1. Mild coronary artery disease nonobstructive disease 2. Mildly elevated left ventricular end-diastolic pressure 3. Normal bilateral renal arteries DISCUSSION AND RECOMMENDATION: Continue with medical therapy Anesthesia Type: Conscious Sedation Estimated blood loss (mL): 10 ml Contrast Amount: 50 ml Total Radiation Dose: 502 mGy Post-Procedure Diagnosis Post-operative diagnosis: Mild coronary artery disease Mildly elevated left ventricular end-diastolic pressure Malignant hypertension Pulmonary hypertension BOONE MUÑOZ MD Feb 05, 2018 10:29
[2018-02-05] MEDS ORDERED: NEBIVOLOL 5 MG TAB (BYSTOLIC) PO NR (10:55)
[2018-02-05] MEDS ORDERED: KETOROLAC 30 MG/ML VIAL IVP NR (11:39)
== END 2018-02-05 13:15 | disposition home or self-care (01) ==
LOC: CATH 06:57 → ICU 10:51 → CATH 13:15
PROVIDERS: ATTEND Internal Medicine Cardiovascular Disease
DX: I25.10 Atherosclerotic heart disease of native coronary artery without angina pectoris (principal); I10 Essential (primary) hypertension; I27.20 Pulmonary hypertension, unspecified; I08.1 Rheumatic disorders of both mitral and tricuspid valves; I45.10 Unspecified right bundle-branch block; G47.33 Obstructive sleep apnea (adult) (pediatric); E03.9 Hypothyroidism, unspecified; E66.01 Morbid (severe) obesity due to excess calories; Z68.41 Body mass index [BMI] 40.0-44.9, adult; Z98.84 Bariatric surgery status; Z79.899 Other long term (current) drug therapy
CPT/HCPCS: 36252; 36415; 71045; 80053; 80061; 81000; 85027; 85610; 85730; 87081; 93320; 93325; 93458

== ENCOUNTER → 2018-04-19 | Outpatient (CLI) | payer BC ==
[~2018-04-19] MED LIST changes: +AMLO10TA6 PO; +CLON1PAT33 TD; +ESTR10TA9 PO; +ESTRADIOL 1 MG PO; +LOSA100T8 PO; +MEDR5TAB4 PO; +NEBI5TAB8 PO; +NFNEB10T PO
[2018-04-19 09:35] LABS: ALANINE AMINOTRANSFERASE 15 U/L (0-55); ALBUMIN 4.3 GM/DL (3.2-4.5); ALKALINE PHOSPHATASE 101 U/L (40-136); BILIRUBIN,TOTAL 0.4 MG/DL (0.1-1.0); BUN/CREATININE RATIO 11; CALCIUM 9.8 MG/DL (8.5-10.1); CARBON DIOXIDE 26 MMOL/L (21-32); CHLORIDE 100 MMOL/L (98-107); CREATININE SERUM 0.91 MG/DL (0.60-1.30); GFR ESTIMATED > 60; GLUCOSE 135 MG/DL (70-105); POTASSIUM 2.9 MMOL/L (3.6-5.0); SODIUM 140 MMOL/L (135-145); TOTAL PROTEIN 8.3 GM/DL (6.4-8.2)
== END ==
LOC: LAB 07:52
PROVIDERS: ATTEND Nurse Practitioner Family
DX: E87.6 Hypokalemia (principal); D64.9 Anemia, unspecified
CPT/HCPCS: 36415; 80053; 85014; 85018

== ENCOUNTER → 2018-05-03 | Outpatient (CLI) | payer BC ==
[2018-05-03 10:14] LABS: BUN/CREATININE RATIO 14; CALCIUM 9.2 MG/DL (8.5-10.1); CARBON DIOXIDE 26 MMOL/L (21-32); CHLORIDE 100 MMOL/L (98-107); CREATININE SERUM 0.87 MG/DL (0.60-1.30); GFR ESTIMATED > 60; GLUCOSE 131 MG/DL (70-105); POTASSIUM 3.3 MMOL/L (3.6-5.0); SODIUM 139 MMOL/L (135-145)
== END ==
LOC: LAB 08:27
PROVIDERS: ATTEND Nurse Practitioner Family
DX: E87.6 Hypokalemia (principal)
CPT/HCPCS: 36415; 80048

== ENCOUNTER → 2018-06-30 | Outpatient (CLI) | payer BC ==
[~2018-06-30] MED LIST changes: -AMLO10TA6 PO; +AMLO10TA7 PO; -AMLO5TAB7 PO; +AMLO5TAB9 PO; +LOSA100T57 PO; -LOSA100T8 PO
[2018-06-30 07:39] LABS: BUN/CREATININE RATIO 11; CALCIUM 9.3 MG/DL (8.5-10.1); CARBON DIOXIDE 30 MMOL/L (21-32); CHLORIDE 101 MMOL/L (98-107); CREATININE SERUM 0.79 MG/DL (0.60-1.30); GFR ESTIMATED > 60; GLUCOSE 92 MG/DL (70-105); PHOSPHORUS 3.9 MG/DL (2.3-4.7); POTASSIUM 3.4 MMOL/L (3.6-5.0); SODIUM 141 MMOL/L (135-145)
== END ==
LOC: LAB 07:10
PROVIDERS: ATTEND Internal Medicine Nephrology
DX: Z84.1 Family history of disorders of kidney and ureter (principal)
CPT/HCPCS: 36415; 80069

== ENCOUNTER 2018-08-13 07:21 | Outpatient (RCR) | payer BC, OTHER ==
[2018-08-13 07:54] LABS: POTASSIUM 3.1 MMOL/L (3.6-5.0)
[2018-08-13 13:49] LABS: HEMOGLOBIN 12.1 G/DL (11.5-16.0); MEAN PLATELET VOLUME 10.5 FL (7.4-10.4); WHITE BLOOD COUNT 8.6 10^3/uL (4.3-11.0)
== END 2018-11-11 | disposition still patient (30) ==
LOC: LAB 07:21
PROVIDERS: ATTEND Nurse Practitioner Family
DX: J18.9 Pneumonia, unspecified organism (principal); E87.6 Hypokalemia
CPT/HCPCS: 36415; 80051; 85027

== ENCOUNTER → 2018-08-31 | Outpatient (CLI) | payer BC ==
[2018-08-31 07:43] LABS: ALBUMIN 3.8 GM/DL (3.2-4.5); BUN/CREATININE RATIO 13; CALCIUM 9.1 MG/DL (8.5-10.1); CARBON DIOXIDE 25 MMOL/L (21-32); CHLORIDE 108 MMOL/L (98-107); CREATININE SERUM 0.84 MG/DL (0.60-1.30); GFR ESTIMATED > 60; GLUCOSE 75 MG/DL (70-105); PHOSPHORUS 3.7 MG/DL (2.3-4.7); SODIUM 142 MMOL/L (135-145)
== END ==
LOC: LAB 07:08
PROVIDERS: ATTEND Internal Medicine Nephrology
DX: E87.6 Hypokalemia (principal)
CPT/HCPCS: 36415; 80069; 83735

== ENCOUNTER → 2018-09-22 | Outpatient (CLI) | payer BC ==
--- NOTE | 2018-09-22 16:18 | Diagnostic Imaging Report ---
INDICATION: Left ankle pain. COMPARISON: None. FINDINGS: Three views of the left ankle were obtained. Extraosseous calcifications are identified interposed between the distal tibia and fibula approximately 3 cm above the tibiotalar joint space. Otherwise, no acute appearing osseous abnormality is seen. The osseous structures are otherwise intact. The joint spaces are maintained. Note is made of mild generalized soft tissue swelling. No unexpected radiopaque foreign bodies are seen. IMPRESSION: 1. Extraosseous calcifications are identified interposed between the distal tibia and fibula. The findings could be on the basis of chronic heterotopic ossification. Fracture fragments related to underlying acute osseous abnormality are felt to be less likely. If further evaluation is indicated, cross-sectional imaging is recommended. Alternatively, short interval radiographic followup could be performed. 2. Generalized soft tissue swelling. Dictated by: Dictated on workstation # [id number]
== END ==
LOC: RAD 11:36
PROVIDERS: ATTEND Nurse Practitioner Family
DX: M79.89 Other specified soft tissue disorders (principal); M25.872 Other specified joint disorders, left ankle and foot
CPT/HCPCS: 73610

== ENCOUNTER → 2018-10-05 | Outpatient (CLI) | payer BC ==
[~2018-10-05] MED LIST changes: +HOLD METFORMIN - RECEIVED CONTRAST 20 ML VIAL IV SCH; +IOHEXOL 350 MG/ML 100 ML (OMNIPAQUE 350) VIAL IV ONE; +NS 100 ML (IVPB) BAG IV ONE
--- NOTE | 2018-10-05 09:28 | Diagnostic Imaging Report ---
PROCEDURE: CT chest with and without contrast. TECHNIQUE: Multiple contiguous axial images were obtained through the chest before and after administration of intravenous contrast. Auto Exposure Controls were utilized during the CT exam to meet ALARA standards for radiation dose reduction. DATE: October 05, 2018. COMPARISON: Chest radiograph February 05, 2018. CT chest with intravenous contrast 10/03/2015. INDICATION: 37-year-old female, pulmonary artery hypertension. Shortness of breath. FINDINGS: There are linear and groundglass opacities in the right and left lower lobes as well as portions of the left upper lobe which likely relate to atelectasis. There is no additional focal airspace consolidation. There is no pulmonary nodule or lung mass. There is no pneumothorax. There is no pleural effusion. The more central airways are patent. There is nondiagnostic assessment for pulmonary embolus given the timing of the contrast bolus. There is motion artifact. The main pulmonary artery diameter is measured at 2.9 cm on axial image 20 which is just above the upper limits of normal and would be compatible with provided history of pulmonary artery hypertension. The thoracic aorta is normal in caliber. The heart is not enlarged. There is no pericardial effusion. There is no identified abnormally enlarged mediastinal, hilar, or axillary lymph node which meets CT size criteria for adenopathy. The patient is status post cholecystectomy. There is postoperative material adjacent to the anterior aspect of the spleen. There is a somewhat wedge-shaped area of low attenuation within the peripheral aspect of the spleen or subjacent to the spleen measuring 5.9 x 1.9 cm in size. This is at the location of a previously noted gas-containing fluid collection on prior CT chest of October 03, 2015. This area is decreased in size since the comparison CT chest. There is post operative material along the greater curvature of the stomach. Additional evaluation of the imaged portions of the upper abdomen is unremarkable. There is no identified acute bony abnormality. There are degenerative changes of the spine. IMPRESSION: CT CHEST. 1. Main pulmonary artery diameter measuring slightly above upper limits of normal at 2.9 cm. This would be compatible with provided history of pulmonary artery hypertension. 2. Nondiagnostic study for pulmonary embolus given the timing of the contrast bolus. 3. No cardiomegaly or pericardial effusion. 4. Linear and groundglass areas of attenuation in the right and left lower lobes and portions of the left upper lobe likely relate to atelectasis. 5. Surgical clips adjacent to the anterior aspect of the spleen with wedge-shaped area of low attenuation in the spleen that previously noted gas-containing fluid collection on prior CT chest of October 03, 2015. This area of low attenuation could relate to incompletely resolved fluid collection and/or splenic infarct. Dictated by: Dictated on workstation # [id number]
--- NOTE | 2018-10-05 12:28 | Diagnostic Imaging Report ---
PROCEDURE: US Hepatic (Liver). TECHNIQUE: Multiple real-time grayscale images were obtained over the right upper quadrant in various projections. INDICATION: Pulmonary hypertension. FINDINGS: Liver is mildly enlarged at 18.3 cm. There is generalized increased echogenicity suggestive of hepatic steatosis. No discrete liver mass is identified. Portal vein is patent and shows normal direction of flow. Gallbladder is surgically absent. No definite biliary duct dilatation is seen. Pancreas is obscured by bowel gas. Right kidney is unremarkable. There is no ascites. IMPRESSION: Mild hepatomegaly and probable hepatic steatosis. No other significant abnormality is detected. Dictated by: Dictated on workstation # [id number]
== END ==
LOC: RAD 07:07
PROVIDERS: ATTEND Nurse Practitioner Family
DX: I27.21 Secondary pulmonary arterial hypertension (principal); R16.0 Hepatomegaly, not elsewhere classified; Z90.49 Acquired absence of other specified parts of digestive tract; Z98.890 Other specified postprocedural states
CPT/HCPCS: 71270; 76705

== ENCOUNTER → 2018-10-05 | Outpatient (CLI) | payer BC ==
[~2018-10-05] MED LIST changes: -HOLD METFORMIN - RECEIVED CONTRAST 20 ML VIAL IV SCH; -IOHEXOL 350 MG/ML 100 ML (OMNIPAQUE 350) VIAL IV ONE; -NS 100 ML (IVPB) BAG IV ONE
--- NOTE | 2018-10-05 15:54 | Diagnostic Imaging Report ---
INDICATION: Worsening left ankle pain. TIME OF EXAM: 3:38 PM FINDINGS: Three views of the left ankle were obtained. Alignment is normal. Ankle mortise is well maintained. Talar dome is smooth. No fracture or dislocation is seen. IMPRESSION: No acute bony abnormality is detected. Dictated by: Dictated on workstation # [id number]
== END ==
LOC: RAD 15:27
PROVIDERS: ATTEND Nurse Practitioner Family
DX: M25.572 Pain in left ankle and joints of left foot (principal)
CPT/HCPCS: 73610

== ENCOUNTER → 2018-10-29 | Outpatient (CLI) | payer BC ==
[2018-10-29 07:27] LABS: BASOPHILS % (AUTO) 0 % (0-10); EOSINOPHILS # (AUTO) 0.1 10^3/uL (0.0-0.3); EOSINOPHILS % (AUTO) 1 % (0-10); HEMATOCRIT 35 % (35-52); LYMPHOCYTES # (AUTO) 2.3 X 10^3 (1.0-4.0); LYMPHOCYTES % (AUTO) 36 % (12-44); MEAN CORPUSCULAR HEMOGLOBIN 28 PG (25-34); MEAN CORPUSCULAR HGB CONC 32 G/DL (32-36); MEAN CORPUSCULAR VOLUME 89 FL (80-99); MEAN PLATELET VOLUME 10.1 FL (7.4-10.4); MONOCYTES # (AUTO) 0.5 X 10^3 (0.0-1.0); MONOCYTES % (AUTO) 7 % (0-12); NEUTROPHILS # (AUTO) 3.7 X 10^3 (1.8-7.8); NEUTROPHILS % (AUTO) 56 % (42-75); PLATELET COUNT 230 10^3/uL (130-400); RED CELL DISTRIBUTION WIDTH 15.1 % (10.0-14.5); WHITE BLOOD COUNT 6.6 10^3/uL (4.3-11.0)
[2018-10-29 07:51] LABS: BUN/CREATININE RATIO 14; CALCIUM 9.4 MG/DL (8.5-10.1); CARBON DIOXIDE 26 MMOL/L (21-32); CHLORIDE 102 MMOL/L (98-107); GFR ESTIMATED > 60; GLUCOSE 99 MG/DL (70-105); POTASSIUM 3.6 MMOL/L (3.6-5.0); SODIUM 140 MMOL/L (135-145)
== END ==
LOC: LAB 07:03
PROVIDERS: ATTEND Internal Medicine Pulmonary Disease
DX: I27.20 Pulmonary hypertension, unspecified (principal)
CPT/HCPCS: 36415; 80048; 85025

== ENCOUNTER → 2018-11-11 | Outpatient (CLI) | payer BC | LOC: LAB 07:04 | PROVIDERS: ATTEND Nurse Practitioner Family | DX: D64.9 Anemia, unspecified (principal) | CPT/HCPCS: 36415; 82728; 83540 ==

== ENCOUNTER → 2018-11-18 | Outpatient (CLI) | payer BC, OTHER ==
[~2018-11-18] MED LIST changes: -OMEP20CA12 PO; +OMEP20CA13 PO
[2018-11-18 07:18] LABS: BASOPHILS % (AUTO) 0 % (0-10); EOSINOPHILS # (AUTO) 0.1 10^3/uL (0.0-0.3); EOSINOPHILS % (AUTO) 2 % (0-10); HEMATOCRIT 36 % (35-52); HEMOGLOBIN 11.3 G/DL (11.5-16.0); LYMPHOCYTES # (AUTO) 2.2 X 10^3 (1.0-4.0); LYMPHOCYTES % (AUTO) 35 % (12-44); MEAN CORPUSCULAR HEMOGLOBIN 28 PG (25-34); MEAN CORPUSCULAR HGB CONC 32 G/DL (32-36); MEAN CORPUSCULAR VOLUME 89 FL (80-99); MONOCYTES # (AUTO) 0.5 X 10^3 (0.0-1.0); MONOCYTES % (AUTO) 8 % (0-12); NEUTROPHILS # (AUTO) 3.5 X 10^3 (1.8-7.8); NEUTROPHILS % (AUTO) 56 % (42-75); PLATELET COUNT 259 10^3/uL (130-400); WHITE BLOOD COUNT 6.3 10^3/uL (4.3-11.0)
[2018-11-18 07:42] LABS: BUN/CREATININE RATIO 14; CALCIUM 9.7 MG/DL (8.5-10.1); CARBON DIOXIDE 26 MMOL/L (21-32); CHLORIDE 102 MMOL/L (98-107); CREATININE SERUM 0.86 MG/DL (0.60-1.30); GFR ESTIMATED > 60; GLUCOSE 94 MG/DL (70-105); PHOSPHORUS 3.6 MG/DL (2.3-4.7); POTASSIUM 3.7 MMOL/L (3.6-5.0); SODIUM 140 MMOL/L (135-145)
== END ==
LOC: LAB 07:01
PROVIDERS: ATTEND Internal Medicine Nephrology
DX: G47.33 Obstructive sleep apnea (adult) (pediatric) (principal); I27.20 Pulmonary hypertension, unspecified; E87.6 Hypokalemia; I10 Essential (primary) hypertension
CPT/HCPCS: 36415; 80069; 82306; 83735; 85025

== ENCOUNTER → 2018-12-14 | Outpatient (CLI) | payer BC ==
[2018-12-14 14:04] LABS: ALBUMIN 4.2 GM/DL (3.2-4.5); BUN/CREATININE RATIO 16; CALCIUM 9.7 MG/DL (8.5-10.1); CARBON DIOXIDE 24 MMOL/L (21-32); CHLORIDE 103 MMOL/L (98-107); CREATININE SERUM 0.96 MG/DL (0.60-1.30); GFR ESTIMATED > 60; GLUCOSE 79 MG/DL (70-105); PHOSPHORUS 3.9 MG/DL (2.3-4.7); POTASSIUM 3.5 MMOL/L (3.6-5.0); SODIUM 139 MMOL/L (135-145)
== END ==
LOC: LAB 12:12
PROVIDERS: ATTEND Internal Medicine Nephrology
DX: D50.9 Iron deficiency anemia, unspecified (principal); G47.33 Obstructive sleep apnea (adult) (pediatric); E66.9 Obesity, unspecified; E87.6 Hypokalemia; I10 Essential (primary) hypertension; Z84.1 Family history of disorders of kidney and ureter
CPT/HCPCS: 36415; 80069

== ENCOUNTER → 2019-04-27 | Outpatient (CLI) | payer BC ==
--- NOTE | 2019-04-27 13:45 | Diagnostic Imaging Report ---
EXAMINATION: US Thyroid. TECHNIQUE: Multiple real-time grayscale images were obtained of the thyroid in various projections. HISTORY: THYROID NODULE COMPARISON: 01/14/2018. FINDINGS: The right lobe of the thyroid measures 5.1 x 1.7 x 1.7 cm. The left lobe of the thyroid measures 5.1 x 1.3 x 1.7 cm. The isthmus measures 6 mm. The size and echogenicity of the thyroid is normal. There is a right thyroid solid and hypoechoic nodule without other suspicious features measuring 4 x 4 x 4 mm. Stable in size. The assessment is TI-RADS 4. No follow-up is recommended based on its size. There is a left thyroid solid and hypoechoic nodule without other suspicious features measuring 7 x 5 x 5 mm. Stable in size. The assessment is TI-RADS 4. No follow-up is recommended based on its size. IMPRESSION: 1. Tiny thyroid nodules do not require follow-up by TI-RADS criteria. TIRADS categories: TIRADS 1: Benign No FNA or follow-up required TIRADS 2: Not Suspicious No FNA or follow-up required TIRADS 3: Mildly Suspicious FNA if ? 2.5 cm Follow if ? 1.5 cm (At 1, 3 and 5 years from initial scan) TIRADS 4: Moderately Suspicious FNA if ? 1.5 cm Follow if ? 1 cm (At 1, 2, 3 and 5 years from initial scan) TIRADS 5: Highly Suspicious FNA if ? 1 cm Follow if ? 0.5 cm (Annually for 5 years from initial scan) Dictated by: Dictated on workstation # [id number]
[2019-04-27 15:01] LABS: POTASSIUM 3.7 MMOL/L (3.6-5.0)
[2019-04-27 15:02] LABS: ALBUMIN 4.3 GM/DL (3.2-4.5); BILIRUBIN,TOTAL 0.3 MG/DL (0.1-1.0); CALCIUM 9.5 MG/DL (8.5-10.1); CREATININE SERUM 1.1 MG/DL (0.60-1.30); TOTAL PROTEIN 8.2 GM/DL (6.4-8.2)
== END ==
LOC: RAD 11:31
PROVIDERS: ATTEND Nurse Practitioner Family
DX: E04.1 Nontoxic single thyroid nodule (principal); E55.9 Vitamin D deficiency, unspecified; D64.9 Anemia, unspecified
CPT/HCPCS: 36415; 76536; 80053; 82306; 84443

== ENCOUNTER → 2019-06-08 | Outpatient (CLI) | payer BC ==
[~2019-06-08] VITALS: Ht 175.3 cm; Wt 138.6 kg
[~2019-06-08] MED LIST changes: +AZIT250T12 PO; +NS IV 1000 ML 1,000 ML IV ONE; +OMEP-280 PO; -OMEP20CA13 PO
[2019-06-08 11:25] VITALS: BP 149/85
== END ==
LOC: SDC 10:56
PROVIDERS: ATTEND Nurse Practitioner Family
DX: E86.0 Dehydration (principal)
CPT/HCPCS: 96360

== ENCOUNTER 2019-06-11 08:05 | Emergency (ER) | payer BC ==
[~2019-06-11] VITALS: Ht 175.2 cm; Wt 138.0 kg
[~2019-06-11 08:05] MED LIST changes: -AZIT250T12 PO; -NS IV 1000 ML 1,000 ML IV ONE; -OMEP-280 PO; +OMEP20CA18 PO; +ONDA-105 PO; -ONDA4TAB10 PO
[2019-06-11] MEDS ORDERED: RT-ALBUTEROL/IPRATROPIUM 3 ML (DUONEB) VIAL INH ONE (09:45)
--- NOTE | 2019-06-11 09:46 | ED Respiratory ---
General Chief Complaint: Cough/Cold/Flu Symptoms Stated Complaint: SOA / COUGH / FEVER Nursing Triage Note: Pt c/o 104.3 fever last night. Pt reports fever broke approximately 4 hours after taking tylenol. Pt reports being seen on Thursday and was prescribed xofluza, augmentin and given IV fluids. Pt c/o nasal congestion, productive cough with green mucous, and chest tightness. Source: patient Exam Limitations: no limitations History of Present Illness Date Seen by Provider: Jun 11, 2019 Time Seen by Provider: 08:50 Initial Comments Here with report of intermittent fever over the last several days. Was seen by her provider and actually sent over for fluids a few days ago. She was assumed to have influenza and was given 1 dose treatment with Xofluza. Reports today that she is having persistent productive cough. She is on Augmentin. She is concerned that she has pneumonia. She has been using intermittent breathing treatments at home. She states is helping a little bit but this is overall hang on for a long time. Timing/Duration: constant, other (for 5 days) Severity: moderate Prior Episodes/Possible Cause: occasional episodes Modifying Factors: Worse With Activity; Improves With Albuterol Nebulizer; Worse With Coughing; Improves With Rest Associated Symptoms: No chest pain/soreness; cough, fever/chills, muscle aches, nasal congestion, nasal drainage, shortness of breath, sore throat, wheezing Allergies and Home Medications Allergies Coded Allergies: sumatriptan (Verified Allergy, Severe, ANAPHYLAXIS, 09/04/15) fentanyl (Verified Allergy, Intermediate, MIGRAINE LEVEL HEADACHES, 10/06/15) Home Medications Alprazolam 1 Mg Tablet, 0.5 MG PO BID PRN for ANXIETY, (Reported) TAKE 1/2 OF 1MG TAB Clonidine 1 Each Patch.tdwk, 1 PATCH TD Q7D, (Reported) Cyclobenzaprine HCl 10 Mg Tablet, 10 MG PO HS, (Reported) Fluoxetine HCl 40 Mg Capsule, 40 MG PO DAILY, (Reported) Losartan Potassium 100 Mg Tablet, 100 MG PO DAILY, (Reported) Medroxyprogesterone Acetate 5 Mg Tablet, 5 MG PO DAILY, (Reported) Nebivolol HCl 10 Mg Tab, 10 MG PO DAILY Prescribed by: BOONE MUÑOZ on 02/05/18 1024 [Estradiol 1 Mg] , 1 MG PO DAILY, (Reported) Patient Home Medication List Home Medication List Reviewed: Yes Review of Systems Review of Systems Constitutional: see HPI, chills; No fever EENTM: nose congestion, throat pain Respiratory: cough, wheezing Cardiovascular: no symptoms reported Gastrointestinal: no symptoms reported Musculoskeletal: no symptoms reported Skin: no symptoms reported Past Hppvkfz-Ybpwrr-Ldozvi Hx Past Med/Social Hx: Reviewed Nursing Past Med/Soc Hx Patient Social History Alcohol Use: Denies Use Recreational Drug Use: No 2nd Hand Smoke Exposure: No Recent Foreign Travel: No Contact w/Someone Who Travel: No Recent Infectious Disease Expo: No Recent Hopitalizations: No Immunizations Up To Date Tetanus Booster (TDap): Less than 5yrs PED Vaccines UTD: Yes Date of Influenza Vaccine: Jan 19, 2018 Seasonal Allergies Seasonal Allergies: Yes Past Medical History Surgeries: Yes (LT ANKLE FX, LT KNEE SCOPE, DX LAP FOR ENDOMETRIOSIS, SLEEVE GASTRECTOMY) Abdominal, Adenoidectomy, Hysterectomy, Orthopedic, Tonsillectomy Respiratory: Yes (USES CPAP) Sleep Apnea Currently Using CPAP: Yes Currently Using BIPAP: No Cardiac: Yes Hypertension Neurological: Yes Headaches /Migraines Reproductive Disorders: Yes Female Reproductive Disorders: Menstrual Problems, Endometriosis, Ovarian Cyst Sexually Transmitted Disease: No HIV/AIDS: No Gastrointestinal: No Gastroesophageal Reflux, Gall Bladder Disease Musculoskeletal: Yes Chronic Back Pain Endocrine: No Loss of Vision: Bilateral Hearing Impairment: Denies Cancer: No Psychosocial: No Anxiety Integumentary: No Blood Disorders: No (BORDERLINE ANEMIC) Adverse Reaction/Blood Tranf: No (N/A) Family Medical History Reviewed Nursing Family Hx Diabetes mellitus 19 FATHER Hypertension 19 FATHER 19 MOTHER Kidney disease 19 FATHER Hypertension, Renal Disease Physical Exam Vital Signs - First Documented 06/11/19 08:18 Temp 37.1 Pulse 94 Resp 16 B/P (MAP) 168/95 (119) Pulse Ox 94 O2 Delivery Room Air Capillary Refill : Less Than 3 Seconds Height: 5'9.00" Weight: 292lbs. 0.0oz. 132.156791oo; 44.00 BMI Method:Stated General Appearance: WD/WN, no apparent distress HEENT: PERRL/EOMI, pharyngeal erythema Neck: full range of motion, supple Respiratory: no respiratory distress, no accessory muscle use, other (coarse sounds with cough) Cardiovascular: regular rate, rhythm, no murmur Gastrointestinal: non tender, soft Extremities: non-tender, normal inspection Neurologic/Psychiatric: alert, oriented x 3 Skin: normal color, warm/dry Progress/Results/Core Measures Suspected Sepsis Recent Fever Within 48 Hours: Yes Infection Criteria Present: Suspected New Infection New/Unexplained Altered Menta: No Sepsis Screen: Possible Severe Sepsis Risk SIRS Temperature: Pulse: 94 Respiratory Rate: 16 Blood Pressure 168 /95 Mean: 119 Results/Orders My Orders Orders - KALA VALENTINE MD Chest Pa/Lat (2 View) (06/11/19 09:05) Albuterol/Ipra Inhalation Soln (Duoneb I (06/11/19 09:45) Svn Small Volume Nebulizer (06/11/19 09:36) Ketorolac Injection (Toradol Injection) (06/11/19 10:32) Medications Given in ED Current Medications Medications Dose Ordered Sig/Dorothea Route Start Time Stop Time Status Last Admin Dose Admin Albuterol/ Ipratropium 3 ml ONCE ONCE INH 06/11/19 09:45 06/11/19 09:46 DC 06/11/19 09:57 3 ML Vital Signs/I&O 06/11/19 06/11/19 06/11/19 08:18 08:18 09:57 Temp 37.1 Pulse 94 Resp 16 B/P (MAP) 168/95 (119) Pulse Ox 94 92 O2 Delivery Room Air Room Air Room Air Capillary Refill : Less Than 3 Seconds Blood Pressure Mean: 119 Progress Note : Progress Note Seen and evaluated. Chest x-ray ordered. Discussed nebulizer treatment but patient declined initially. She later asked for the treatment which was ordered. Monitor patient. Departure Impression Primary Impression: Right lower lobe pneumonia Qualified Codes: J18.1 - Lobar pneumonia, unspecified organism Disposition: HOME, SELF-CARE Condition: Stable Departure-Patient Inst. Decision time for Depature: 10:40 Referrals: DAVID ANDERSON MD (PCP/Family) Primary Care Physician Patient Instructions: Pneumonia, Adult (DC) Add. Discharge Instructions: All discharge instructions reviewed with patient and/or family. Voiced understanding. Take medications as directed. You may take Tylenol/acetaminophen 1000 mg every 8 hours as needed for fever or pain. You may take ibuprofen 600 mg every 8 hours as needed for fever or pain. Drink plenty of fluids. Stop the Augmentin. Follow- up with your this week for recheck and further evaluation. Return for worse pain, persistent uncontrolled fever, vomiting, weakness, breathing problems or other concerns as needed. Continue nebulizer treatments every 4-6 hours as needed. Scripts Cefdinir (Cefdinir) 300 Mg Capsule 300 MG PO BID, #20 CAP 0 Refills Prov: KALA VALENTINE MD 06/11/19 Azithromycin (Azithromycin) 250 Mg Tablet 250 MG PO UD, #6 TAB TAKE 2 TABLETS ON DAY ONE THEN TAKE 1 TABLET DAILY FOR FOUR MORE DAYS Prov: KALA VALENTINE MD 06/11/19 Copy Copies To 1: DAVID ANDERSON MD, TIMOTHY D MD Jun 11, 2019 09:46
--- NOTE | 2019-06-11 10:30 | NUR ---
Pt now reports being sick for two weeks and not since earlier this week. Pt also reporting migraine now and is requesting a Toradol shot. Dr. Jacobson notified.
[2019-06-11] MEDS ORDERED: KETOROLAC 60 MG/2 ML VIAL IM STA (10:32)
--- NOTE | 2019-06-11 10:33 | Diagnostic Imaging Report ---
INDICATION: Shortness of breath. COMPARISON: 02/05/2018 FINDINGS: Airspace opacities in the right lower lobe are consistent with pneumonia as a new finding. No focal left lung infiltrate. Heart size is upper limit and stable. No failure pattern. IMPRESSION: Development of right lower lobe pneumonia. Dictated by: Dictated on workstation # [id number]
[2019-06-11] MEDS ORDERED: AZIT250T12 PO (10:42)
[2019-06-11] MEDS ORDERED: CEFD300C3 PO (10:42)
[2019-06-11 11:03] VITALS: BP 159/92
== END 2019-06-11 10:56 | disposition home or self-care (01) ==
LOC: EDUNIT# 08:05 → ER 08:06
DX: J18.9 Pneumonia, unspecified organism (principal); I10 Essential (primary) hypertension; K21.9 Gastro-esophageal reflux disease without esophagitis; F41.9 Anxiety disorder, unspecified; G47.30 Sleep apnea, unspecified; Z99.89 Dependence on other enabling machines and devices; Z88.5 Allergy status to narcotic agent; Z88.8 Allergy status to other drugs, medicaments and biological substances; Z79.52 Long term (current) use of systemic steroids
CPT/HCPCS: 71046; 94640

== ENCOUNTER 2019-10-20 13:11 | Outpatient (RCR) | payer BC ==
[2019-10-07 13:35] VITALS: BP 133/76
[2019-10-07] MEDS: IRON SUCROSE 200 MG/10 ML (VENOFER) VIAL IV SCH (14:15)
[2019-10-10] MEDS: IRON SUCROSE 200 MG/10 ML (VENOFER) VIAL IV SCH (13:54)
[2019-10-10 14:50] VITALS: BP 142/77
[2019-10-13 13:00] VITALS: BP 138/79
[2019-10-13] MEDS: IRON SUCROSE 200 MG/10 ML (VENOFER) VIAL IV SCH (13:40)
[2019-10-17] MEDS: IRON SUCROSE 200 MG/10 ML (VENOFER) VIAL IV SCH (13:14)
[2019-10-17 14:15] VITALS: BP 144/86
[~2019-10-20] VITALS: Ht 175.3 cm; Wt 143.2 kg
[~2019-10-20 13:11] MED LIST changes: +AZIT250T12 PO; +IRON SUCROSE 200 MG/10 ML (VENOFER) VIAL IV ONE
[2019-10-20] MEDS: IRON SUCROSE 200 MG/10 ML (VENOFER) VIAL IV SCH (13:27)
[2019-10-20 13:37] VITALS: BP 132/73
== END 2019-10-20 13:56 | disposition home or self-care (01) ==
LOC: SDC 13:11
PROVIDERS: ATTEND Internal Medicine Nephrology
DX: D50.9 Iron deficiency anemia, unspecified (principal)
CPT/HCPCS: 96365

== ENCOUNTER → 2020-05-07 | Outpatient (CLI) | payer BC ==
[~2020-05-07] MED LIST changes: +AMLO-250 PO; +AMLO-251 PO; -AMLO10TA7 PO; -AMLO5TAB9 PO; -IRON SUCROSE 200 MG/10 ML (VENOFER) VIAL IV ONE; +NADO40TA2 PO; -PANT40TA3 PO; +PANT40TA52 PO
== END ==
LOC: LABNPT 05:38
PROVIDERS: ATTEND Family Medicine
DX: Z20.822 Contact with and (suspected) exposure to COVID-19 (principal)
CPT/HCPCS: 87635

== ENCOUNTER 2020-10-18 05:02 | Emergency (ER) | payer OTHER ==
[~2020-10-18] VITALS: Ht 175.2 cm; Wt 135.1 kg
[~2020-10-18 05:02] MED LIST changes: +FLUC10SU PO; -FLUC10SU9 PO; -LISI-552 PO; +LISI20TA26 PO; -OXYC-464 PO; +OXYC1TAB15 PO
--- NOTE | 2020-10-18 05:25 | ED Chest Pain ---
General Stated Complaint: CHEST DISCOMFORT,DIZZY,NAUSEA,LIGHT HEADED Source: patient Exam Limitations: no limitations (IRINA LINDO MD) History of Present Illness Date Seen by Provider: Oct 18, 2020 Time Seen by Provider: 05:12 Initial Comments Patient is a 40-year-old female who presents to the emergency department today with a chief complaint of midsternal chest pressure feeling lightheaded, dizzy and not quite right. Patient states that she woke up at 330 with the symptoms. She states she had some bilateral arm numbness and has recently had some right elbow pain. Patient states the symptoms have been coming and going for the last week or so. She has a history of hypertension and is on medication for hyperten nancy. She has had previous heart cath by Dr. Cardona. Her last one she states was about 2 years ago and had no obstructive disease. Patient denies any recent illnesses such as fevers, chills, cough congestion. No abdominal pain. She states she felt a little nauseous. No Covid concerns. Patient states that she got scared this evening when her blood pressure was up with the chest pressure. She is not a diabetic. She does not smoke. She states she thinks that her father has had a prior stent. Patient states that she is compliant with her blood pressure medications. She does not routinely check her blood pressure however. She currently rates her chest discomfort at "4". All other review of systems reviewed and negative except as stated above. Timing/Duration: 1-3 hours Severity/Quality: mild, pressure Location: central Radiation: arms Activities at Onset: none Prior CP/Workup: cardiac cath ASA po FLAME CUTTER: No NTG SL FLAME CUTTER: No Associated Symptoms: fatigue, nausea/vomiting (IRINA LINDO MD) Allergies and Home Medications Allergies Coded Allergies: sumatriptan (Verified Allergy, Severe, ANAPHYLAXIS, 09/04/15) fentanyl (Verified Allergy, Intermediate, MIGRAINE LEVEL HEADACHES, 10/06/15) Home Medications Alprazolam 1 Mg Tablet, 0.5 MG PO BID PRN for ANXIETY, (Reported) TAKE 1/2 OF 1MG TAB Azithromycin 250 Mg Tablet, 250 MG PO UD TAKE 2 TABLETS ON DAY ONE THEN TAKE 1 TABLET DAILY FOR FOUR MORE DAYS Prescribed by: KALA VALENTINE on 06/11/19 1042 Cefdinir 300 Mg Capsule, 300 MG PO BID Prescribed by: KALA VALENTINE on 06/11/19 1042 Clonidine 1 Each Patch.tdwk, 1 PATCH TD Q7D, (Reported) Cyclobenzaprine HCl 10 Mg Tablet, 10 MG PO HS, (Reported) Fluoxetine HCl 40 Mg Capsule, 40 MG PO DAILY, (Reported) Losartan Potassium 100 Mg Tablet, 100 MG PO DAILY, (Reported) Medroxyprogesterone Acetate 5 Mg Tablet, 5 MG PO DAILY, (Reported) Nebivolol HCl 10 Mg Tab, 10 MG PO DAILY Prescribed by: BOONE MUÑOZ on 02/05/18 1024 [Estradiol 1 Mg] , 1 MG PO DAILY, (Reported) Patient Home Medication List Home Medication List Reviewed: Yes (KALA VALENTINE MD) Review of Systems Review of Systems Constitutional: see HPI EENTM: No Symptoms Reported Respiratory: No Symptoms Reported Cardiovascular: Chest Pain Gastrointestinal: Nausea Genitourinary: No Symptoms Reported Musculoskeletal: no symptoms reported Skin: no symptoms reported Psychiatric/Neurological: No Symptoms Reported (IRINA LINDO MD) All Other Systems Reviewed Negative Unless Noted: Yes (IRINA LINDO MD) Past Eftoaae-Vcoisf-Epyjcv Hx Immunizations Up To Date Tetanus Booster (TDap): Less than 5yrs PED Vaccines UTD: Yes (IRINA LINDO MD) Seasonal Allergies Seasonal Allergies: Yes (IRINA LINDO MD) Past Medical History Surgeries: Yes (LT ANKLE FX, LT KNEE SCOPE, DX LAP FOR ENDOMETRIOSIS, SLEEVE GASTRECTOMY) Abdominal, Adenoidectomy, Hysterectomy, Orthopedic, Tonsillectomy Respiratory: Yes (USES CPAP) Sleep Apnea Currently Using CPAP: Yes Currently Using BIPAP: No Cardiac: Yes Hypertension Neurological: Yes Headaches /Migraines Reproductive Disorders: Yes Female Reproductive Disorders: Menstrual Problems, Endometriosis, Ovarian Cyst Sexually Transmitted Disease: No HIV/AIDS: No Gastrointestinal: No Gastroesophageal Reflux, Gall Bladder Disease Musculoskeletal: Yes Chronic Back Pain Endocrine: No Loss of Vision: Bilateral Hearing Impairment: Denies Cancer: No Psychosocial: No Anxiety Integumentary: No Blood Disorders: No (BORDERLINE ANEMIC) Adverse Reaction/Blood Tranf: No (N/A) (IRINA LINDO MD) Family Medical History Diabetes mellitus 19 FATHER Hypertension 19 FATHER 19 MOTHER Kidney disease 19 FATHER Hypertension, Renal Disease (IRINA LINDO MD) Physical Exam Vital Signs Vital Signs - First Documented (KALA VALENTINE MD) Vital Signs Capillary Refill : (IRINA LINDO MD) Height, Weight, BMI Height: 5'9.00" Weight: 292lbs. 0.0oz. 132.696195wt; 44.00 BMI Method:Stated General Appearance: No Apparent Distress, WD/WN Neck: Normal Inspection Respiratory: Lungs Clear, Normal Breath Sounds, No Accessory Muscle Use, No Respiratory Distress Cardiovascular: Regular Rate, Rhythm, Normal Peripheral Pulses Gastrointestinal: Non Tender, Soft Extremity: Normal Capillary Refill, Normal Inspection, Normal Range of Motion, Non Tender, No Calf Tenderness, No Pedal Edema Neurologic/Psychiatric: Alert, Oriented x3, No Motor/Sensory Deficits, Normal Mood/Affect Skin: Normal Color, Warm/Dry (IRINA LINDO MD) Progress/Results/Core Measures Results/Orders Lab Results Laboratory Tests Test 10/18/20 05:21 10/18/20 07:56 Range/Units White Blood Count 7.2 4.3-11.0 10^3/uL Red Blood Count 4.02 3.80-5.11 10^6/uL Hemoglobin 12.2 11.5-16.0 g/dL Hematocrit 38 35-52 % Mean Corpuscular Volume 93 80-99 fL Mean Corpuscular Hemoglobin 30 25-34 pg Mean Corpuscular Hemoglobin Concent 33 32-36 g/dL Red Cell Distribution Width 13.4 10.0-14.5 % Platelet Count 238 130-400 10^3/uL Mean Platelet Volume 9.7 9.0-12.2 fL Immature Granulocyte % (Auto) 0 % Neutrophils (%) (Auto) 53 42-75 % Lymphocytes (%) (Auto) 37 12-44 % Monocytes (%) (Auto) 8 0-12 % Eosinophils (%) (Auto) 2 0-10 % Basophils (%) (Auto) 0 0-10 % Neutrophils # (Auto) 3.8 1.8-7.8 10^3/uL Lymphocytes # (Auto) 2.7 1.0-4.0 10^3/uL Monocytes # (Auto) 0.6 0.0-1.0 10^3/uL Eosinophils # (Auto) 0.1 0.0-0.3 10^3/uL Basophils # (Auto) 0.0 0.0-0.1 10^3/uL Immature Granulocyte # (Auto) 0.0 0.0-0.1 10^3/uL Sodium Level 142 135-145 MMOL/L Potassium Level 4.0 3.6-5.0 MMOL/L Chloride Level 105 98-107 MMOL/L Carbon Dioxide Level 29 21-32 MMOL/L Anion Gap 8 5-14 MMOL/L Blood Urea Nitrogen 13 7-18 MG/DL Creatinine 1.01 0.60-1.30 MG/DL Estimat Glomerular Filtration Rate 60 BUN/Creatinine Ratio 13 Glucose Level 103 70-105 MG/DL Calcium Level 9.3 8.5-10.1 MG/DL Magnesium Level 2.1 1.6-2.4 MG/DL Total Creatine Kinase 52 29-168 U/L Creatine Kinase MB 2.1 <6.6 NG/ML Troponin I < 0.028 < 0.028 <0.028 NG/ML (KALA VALENTINE MD) My Orders Orders - KALA VALENTINE MD Ed Iv/Invasive Line Start (10/18/20 06:17) Ns Iv 1000 Ml (Sodium Chloride 0.9%) (10/18/20 06:30) Troponin I (10/18/20 07:30) (KALA VALENTINE MD) Medications Given in ED Current Medications Medications Dose Ordered Sig/Dorothea Route Start Time Stop Time Status Last Admin Dose Admin Sodium Chloride 1,000 ml @ 0 mls/hr Q0M ONCE IV 10/18/20 06:30 10/18/20 06:31 DC 10/18/20 06:25 0 MLS/HR (KALA VALENTINE MD) Vital Signs/I&O 10/18/20 10/18/20 05:08 05:08 Temp 36.9 Pulse 66 Resp 20 B/P (MAP) 151/104 (120) Pulse Ox 96 O2 Delivery Room Air Room Air (KALA VALENTINE MD) Progress Progress Note : Progress Note 0600: Assumed care of the patient from Dr. Lindo pending repeat labs. Initial evaluation nonconcerning with regard to labs and EKG. We will repeat troponin at 0730. Patient does report that she has had recent upper respiratory congestion and wonders if this may be part of the problem. She also thinks she may be dehydrated. We will give normal saline 1 L bolus. Currently pain-free. Monitor patient. 030: Repeat troponin negative. Patient remains pain-free. She is better after fluids. Discharged home with return precautions. Patient verbalized understanding instructions and agreement with plan. (KALA VALENTINE MD) Initial ECG Impression Date: Oct 18, 2020 Initial ECG Impression Time: 05:14 Initial ECG Rate: 64 Initial ECG Rhythm: Normal Sinus Initial ECG Intervals: QRS Initial ECG Intervals SC 188 QRS 126 QTc 428 Comment Interventricular conduction delay, no acute ST segment elevations or depress ions. No ectopy is noted (IRINA LINDO MD) Diagnostic Imaging Diagonstic Imaging: Xray Plain Films/CT/US/NM/MRI: chest Comments chest xray shows normal mediastinum, no pleural effusion or infiltrate; normal bony thorax (IRINA LINDO MD) Comments [facility], [place] NAME: DANIELEphraimSTEPHANIEDIMITRI Ollie [facility] REC#: [id number] PT STATUS: REG ER : 1980 PHYSICIAN: IRINA LINDO MD ADMIT DATE: 10/18/20/ER Signed Date of Exam:10/18/20 CHEST 1 VIEW, AP/PA ONLY INDICATION: Right-sided chest pain. FINDINGS: Comparison with 02/05/2018. Portable chest show the lungs to be well-aerated and clear. Heart is upper limits of normal. No evidence of pulmonary edema. No evidence of pneumothorax or pleural effusion. No bony abnormalities. IMPRESSION: No acute changes. Dictated by: Dictated on workstation # [id number] Dict: 10/18/2008 Trans: 10/18/20817 [facility] [id number] Interpreted by: JACKELYN MCCLELLAN MD Electronically signed by: JACKELYN MCCLELLAN MD 10/18/20817 (KALA VALENTINE MD) Departure Impression Primary Impression: Chest pain Qualified Codes: R07.9 - Chest pain, unspecified Disposition: 01 HOME, SELF-CARE Condition: Improved Departure-Patient Inst. Decision time for Depature: 08:34 (KALA VALENTINE MD) Referrals: DAVID ANDERSON MD (PCP/Family) Primary Care Physician BOONE MUÑOZ MD Patient Instructions: Chest Pain (DC) Add. Discharge Instructions: Drink plenty fluids and get some rest. Follow-up with your doctor for recheck and further evaluation. You should also follow-up with your heart doctor. Con tinue home medications as previously prescribed. Return for worse pain, fever, vomiting, weakness, breathing problems or other concerns as needed. Copy Copies To 1: DAVID ANDERSON MD, KATHRYN M MD Oct 18, 2020 05:25 KALA VALENTINE MD Oct 18, 2020 06:28
[2020-10-18] MEDS ORDERED: ASPIRIN 81 MG CHEW (CHILDREN'S ASA) ONE (05:27)
[2020-10-18 05:29] LABS: BASOPHILS % (AUTO) 0 % (0-10); EOSINOPHILS # (AUTO) 0.1 10^3/uL (0.0-0.3); EOSINOPHILS % (AUTO) 2 % (0-10); HEMATOCRIT 38 % (35-52); HEMOGLOBIN 12.2 g/dL (11.5-16.0); LYMPHOCYTES # (AUTO) 2.7 10^3/uL (1.0-4.0); LYMPHOCYTES % (AUTO) 37 % (12-44); MEAN CORPUSCULAR HEMOGLOBIN 30 pg (25-34); MEAN CORPUSCULAR HGB CONC 33 g/dL (32-36); MEAN CORPUSCULAR VOLUME 93 fL (80-99); MEAN PLATELET VOLUME 9.7 fL (9.0-12.2); MONOCYTES # (AUTO) 0.6 10^3/uL (0.0-1.0); MONOCYTES % (AUTO) 8 % (0-12); NEUTROPHILS # (AUTO) 3.8 10^3/uL (1.8-7.8); NEUTROPHILS % (AUTO) 53 % (42-75); PLATELET COUNT 238 10^3/uL (130-400); WHITE BLOOD COUNT 7.2 10^3/uL (4.3-11.0)
[2020-10-18 05:37] LABS: CHLORIDE 105 MMOL/L (98-107); SODIUM 142 MMOL/L (135-145)
[2020-10-18 05:39] LABS: CALCIUM 9.3 MG/DL (8.5-10.1); GLUCOSE 103 MG/DL (70-105)
[2020-10-18 05:41] LABS: CARBON DIOXIDE 29 MMOL/L (21-32)
[2020-10-18 05:43] LABS: CREATININE SERUM 1.01 MG/DL (0.60-1.30); GFR ESTIMATED 60
[2020-10-18 05:44] LABS: BUN/CREATININE RATIO 13
[2020-10-18 05:45] LABS: MAGNESIUM 2.1 MG/DL (1.6-2.4)
[2020-10-18 05:46] LABS: CREATINE KINASE 52 U/L (29-168)
[2020-10-18 05:57] LABS: CREATINE KINASE MB 2.1 NG/ML (<6.6)
[2020-10-18] MEDS ORDERED: NS IV 1000 ML 1,000 ML IV ONE (06:30)
--- NOTE | 2020-10-18 07:11 | Diagnostic Imaging Report ---
INDICATION: Right-sided chest pain. FINDINGS: Comparison with 02/05/2018. Portable chest show the lungs to be well-aerated and clear. Heart is upper limits of normal. No evidence of pulmonary edema. No evidence of pneumothorax or pleural effusion. No bony abnormalities. IMPRESSION: No acute changes. Dictated by: Dictated on workstation # [id number]
[2020-10-18 08:41] VITALS: BP 156/106
[2020-10-18] MEDS ORDERED: ASPIRIN 81 MG CHEW (CHILDREN'S ASA) PO SCH (09:00)
== END 2020-10-18 08:41 | disposition home or self-care (01) ==
LOC: EDUNIT# 05:02 → ER 05:05
DX: R07.9 Chest pain, unspecified (principal); I10 Essential (primary) hypertension; F41.9 Anxiety disorder, unspecified; Z79.899 Other long term (current) drug therapy
CPT/HCPCS: 36415; 71045; 80048; 82550; 82553; 83735; 84484; 85025; 93005

== ENCOUNTER 2021-06-27 12:58 | Outpatient (RCR) | payer OTHER ==
[2021-06-25 12:12] VITALS: BP 154/93
[2021-06-25] MEDS: IRON SUCROSE 200 MG/10 ML (VENOFER) VIAL IV SCH (12:58)
[~2021-06-27 12:58] MED LIST changes: +CYCL10TA25 PO; +NS IV 500 ML 500 ML IV SCH
[2021-06-27 13:00] VITALS: BP 168/88
[2021-06-27] MEDS: IRON SUCROSE 200 MG/10 ML (VENOFER) VIAL IV SCH (13:30)
== END 2021-07-18 | disposition home or self-care (01) ==
LOC: SDC 12:58
PROVIDERS: ATTEND Nurse Practitioner Family
DX: Z01.89 Encounter for other specified special examinations (principal)
CPT/HCPCS: 96365

== ENCOUNTER → 2021-08-02 | Outpatient (CLI) | payer OTHER ==
[~2021-08-02] MED LIST changes: -NS IV 500 ML 500 ML IV SCH
--- NOTE | 2021-08-05 08:51 | Diagnostic Imaging Report ---
INDICATION: Routine screening. COMPARISON: No prior mammograms are available for comparison. This is a baseline study. TECHNIQUE: 2D and 3D bilateral screening mammography was performed with CAD. FINDINGS: Scattered fibroglandular densities are identified bilaterally. There are small circumscribed benign-appearing nodules in the outer aspects of both breasts. No spiculated masses or malignant-appearing microcalcifications are seen. There are occasional benign calcifications noted. The axillae are unremarkable. IMPRESSION: No mammographic features suspicious for malignancy are identified. ACR BI-RADS Category 2: Benign findings. Result letter will be mailed to the patient. Note: At least 10% of breast cancer is not imaged by mammography. Dictated by: Dictated on workstation # [id number]
== END ==
LOC: RAD 12:45
PROVIDERS: ATTEND Nurse Practitioner Family
DX: Z12.31 Encounter for screening mammogram for malignant neoplasm of breast (principal)
CPT/HCPCS: 77063; 77067

== ENCOUNTER → 2022-01-02 | Outpatient (CLI) | payer OTHER | LOC: CARD 09:15 | PROVIDERS: ATTEND Physician Assistant | DX: I10 Essential (primary) hypertension (principal); I25.10 Atherosclerotic heart disease of native coronary artery without angina pectoris | CPT/HCPCS: 93306 ==

== ENCOUNTER 2022-03-05 05:28 | Outpatient (CLI) | payer OTHER ==
[~2022-03-05] VITALS: Ht 175 cm; Wt 134.0 kg
[2022-03-06] MEDS ORDERED: GABA300C PO (14:12)
[2022-03-06] MEDS ORDERED: UBRO50TA PO (14:12)
[2022-03-07] MEDS ORDERED: HYDR12.56 PO (13:31)
[2022-03-07] MEDS ORDERED: POTA99CA PO (13:31)
== END 2022-03-07 13:37 | disposition home or self-care (01) ==
LOC: PREOP 05:28
PROVIDERS: ATTEND Orthopaedic Surgery
DX: Z01.818 Encounter for other preprocedural examination (principal)

== ENCOUNTER 2022-03-12 06:11 | Day surgery (SDC) | payer OTHER ==
--- NOTE | 2022-03-05 07:10 | HISTORY AND PHYSICAL ---
This will be for outpatient surgery on March 12, 2022 for right knee arthroscopy. HISTORY: The patient is a 41-year-old female with progressively worsening right anterior knee pain. She is undergoing treatment with injections with only temporary relief of her symptoms. She reports activity limitations because of the knee. She reports catching, locking and popping. She reports difficulty with stairs, kneeling and squatting. Due to functional impairment and failure to improve with conservative measures, the patient elected to proceed with surgical intervention. REVIEW OF SYSTEMS: No chest pain. No shortness of breath. No dysuria. PAST MEDICAL HISTORY: Endometriosis, insulin resistance, perisplenic abscess, back pain, headache, hypertension, obesity, sleep apnea, anemia. PAST SURGICAL HISTORY: Gastric sleeve, left ankle, knee arthroscopy, tonsillectomy, cholecystectomy, hysterectomy, heart catheterization. FAMILY HISTORY: Significant for diabetes, kidney disease, hyperlipidemia, diabetes, Chase's. PRIMARY CARE PROVIDER: Dr. Nick. MEDICATIONS: Fluoxetine, cyclobenzaprine, gabapentin, Ubrelvy, B complex, potassium, losartan, clonidine. ALLERGIES: TREXIMET, ONDANSETRON AND FENTANYL. SOCIAL HISTORY: The patient denies alcohol and tobacco use. PHYSICAL EXAMINATION: GENERAL: The patient is well-developed, well-nourished, in no acute distress. HEENT: Normocephalic, atraumatic. Pupils equal, round, reactive to light. Oropharynx is clear. NECK: Supple. No lymphadenopathy. LUNGS: Clear to auscultation bilaterally. HEART: Regular rate and rhythm. ABDOMEN: Soft, nontender, nondistended. EXTREMITIES: Examination of the right knee demonstrates marked patellofemoral crepitus and pain with patellar loading. She has pain with hyperflexion of the knee. She is tender along her medial joint line. She has pain medially with Oscar's. There is no varus or valgus laxity. Negative anterior and posterior drawer. Moderate effusions noted. IMPRESSION: Chondromalacia of the patella, right knee. PLAN: Right knee arthroscopy with chondroplasty. Risks, benefits, options, ramifications and recovery were discussed at length with the patient. She understands and wishes to proceed. Job ID: [id number] DocumentID: [id number] Dictated Date: 02/24/2022 11:52:55 Sheet Metal Superintendent Date: 02/24/2022 12:50:00 Dictated By: OKSANA CISNEROS MD
[2022-03-12] VITALS (12 sets, daily range): BP systolic 92–131; BP diastolic 53–83
[~2022-03-12] VITALS: Ht 175 cm; Wt 134.0 kg
[~2022-03-12 06:11] MED LIST changes: +GABA300C PO; +HYDR12.56 PO; +POTA99CA PO; +UBRO50TA PO
[2022-03-12] MEDS ORDERED: ceFAZolin INJECTION 2,000 MG in NS (IVPB) 50 ML IV ONE (06:15)
[2022-03-12] MEDS ORDERED: LACTATED RINGERS 1,000 ML IV PRN (06:30)
[2022-03-12] MEDS ORDERED: proPOfol 200 MG/20 ML (DIPRIVAN) VIAL IV ONE (06:52)
[2022-03-12] MEDS ORDERED: MIDAZOLAM 2 MG/2 ML (VERSED) VIAL ONE (06:52)
[2022-03-12] MEDS ORDERED: LIDOCAINE PF 2% 5 ML (XYLOCAINE) VIAL ONE (06:52)
[2022-03-12] MEDS ORDERED: HYDROmorphone 2 MG/ML VIAL (DILAUDID) ONE (06:52)
[2022-03-12] MEDS ORDERED: morphine PF (DURAMORPH) 10 MG/10 ML AMP ONE (07:12)
[2022-03-12] MEDS ORDERED: BUPIVACAINE 0.25% 30 ML (SENSORCAINE) VIAL ONE (07:12)
[2022-03-12] MEDS ORDERED: oxyCODONE/APAP 5/325MG (PERCOCET 5) TABLET PO PRN (07:15)
--- NOTE | 2022-03-12 07:19 | Progress Note-Pre Operative ---
Pre-Operative Progress Note Date of Available H&P: Feb 24, 2022 Date H&P Reviewed: Mar 12, 2022 Time H&P Reviewed: 07:11 Changes from last HP none Pre-Operative Diagnosis: right knee choncroamalacia and medial meniscus tear KOSANA CISNEROS MD Mar 12, 2022 07:19
[2022-03-12] MEDS ORDERED: OXYC1TAB87 PO (07:20)
--- NOTE | 2022-03-12 07:20 | Progress Note-Post Operative ---
Post-Operative Progess Note Surgeon (s)/Cytogenetics Laboratory Manager (s) Surgeon OKSANA CISNEROS MD Cytogenetics Laboratory Manager: Ryan Mckenna Pre-Operative Diagnosis right knee choncroamalacia and medial meniscus tear Post-Operative Diagnosis right knee chondromalacia of patella, medial femoral condyle, and lateral tibial plateau and lateral meniscus tear Procedure & Operative Findings Date of Procedure 03/12/22 Procedure Performed/Findings right knee arthroscopic partial lateral meniscectomy and chondroplasty of patella, medial femoral condyle and lateral tibial plateau Anesthesia Type GETA Estimated Blood Loss Estimated blood loss (mL): minimal Specimens/Packing Specimens Removed none Packing: none OKSANA CISNEROS MD Mar 12, 2022 07:20
[2022-03-12] MEDS ORDERED: SEVOFLURANE (ULTANE) 15 ML INHAL SOLN ONE (08:01)
[2022-03-12] MEDS ORDERED: morphine PF (DURAMORPH) 10 MG/10 ML AMP INJ ONE (08:11)
[2022-03-12] MEDS ORDERED: BUPIVACAINE 0.25% 30 ML (SENSORCAINE) VIAL INJ ONE (08:13)
[2022-03-12] MEDS ORDERED: PROMETHAZINE INJ 25 MG/ML (PHENERGAN) AMP IVP ONE (08:15)
[2022-03-12] MEDS ORDERED: HYDROmorphone 2 MG/ML VIAL (DILAUDID) IV ONE (08:15)
--- NOTE | 2022-03-12 10:12 | Anesthesia-General Post-Op ---
General Patient Condition Mental Status/LOC: Same as Preop Cardiovascular: Satisfactory Nausea/Vomiting: Absent Respiratory: Satisfactory Pain: Controlled Complications: Absent Post Op Complications Complications None Follow Up Care/Instructions Patient Instructions None needed. Anesthesia/Patient Condition Patient Condition Patient is doing well, no complaints, stable vital signs, no apparent adverse anesthesia problems. No complications reported per nursing. ALLA SMYTH CRNA Mar 12, 2022 10:12
[2022-03-12] MEDS ORDERED: OXYC-199 PO (10:23)
--- NOTE | 2022-03-12 10:44 | Physical Therapy Ortho Eval ---
PT Orthopedic Evaluation Type of Surgery Knee Scope RLE, WBAT Prior Level of Function Current Living Status: Significant Other Locomotion (Upon Admit): Independent Established Durable Medical Eq: None Subjective Subjective Patient in bed pre tx, agrees to PT, has no pain at rest. Entry Into Home: Stairs With Railing Steps Into Home: 3 Motor Control Motor Control: Motor Control WNL ROM has full knee extension on the right side, flexion 70 degrees Transfer SCALE: Activities may be completed with or without assistive devices. 1-Bsyggissbc-pcjsuyd completes the activity by him/herself with no assistance from a helper. 5-Set-up or Clean-up Assistance-helper sets up or cleans up; patient completes activity. [place] assists only prior to or following the activity. 4-Supervision or Touching Assistance-helper provides verbal cues and/or touching/steadying and/or contact guard assistance as patient completes activity. Assistance may be provided throughout the activity or intermittently. 3-Partial/Moderate Assistance-helper does LESS THAN HALF the effort. [place] lifts, holds or supports trunk or limbs, but provides less than half the effort. 2-Substantial/Maximal Assistance-helper does MORE THAN HALF the effort. [place] lifts or holds trunk or limbs and provides more than half the effort. 2-Lzstlaaah-tsjaoq does ALL the effort. Patient does none of the effort to complete the activity. Or, the assistance of 2 or more helpers is required for the patient to complete the activity. If activity was not attempted, code reason: 7-Patient Refused. 9-Not Applicable-not attempted and the patient did not perform the activity before the current illness, exacerbation or injury. 10-Not Attempted due to Environmental Limitations-(lack of equipment, weather restraints, etc.). 88-Not Attempted due to Medical Conditions or Safety Concerns. Transfers (B, C, W/C) (QC): 4 Gait Summary/Comments Patient ambulated 100' with a rolling walker with CGA, also went up and down 1 step using a rolling walker with CGA, cues for foot placement and safety. Treatment Rendered Treatment: Therapeutic Exercises, Gait Train, Step Train Exercise Instruction: Quad Sets, Heel Slides, Ankle Pumps Assessment/Goals Goal Time Frame: 1 Visit Understands HEP: Yes Safe Ambulation: Yes Plan Treatment Plan: Discharge PT/Family Agrees to Plan: Yes Time Time In: 1013 Time Out: 1029 Total Billed Treatment Time: 16 Billed Treatment Time 1 visit EVL 16' ARTURO AHUJA PT Mar 12, 2022 10:44
--- NOTE | 2022-03-12 18:32 | OPERATIVE REPORT ---
DATE OF SERVICE: 03/12/2022 PREOPERATIVE DIAGNOSES: 1. Right knee chondromalacia of the patella. 2. Right knee medial meniscus tear. POSTOPERATIVE DIAGNOSES: 1. Right knee lateral meniscus tear. 2. Right knee chondromalacia of the patella. 3. Right knee chondromalacia of the medial femoral condyle. 4. 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 PROCEDURES: 1. Right knee arthroscopic partial lateral meniscectomy. 2. Right knee arthroscopic chondroplasty of the patella. 3. Right knee arthroscopic chondroplasty of the medial femoral condyle. 4. Right knee arthroscopic chondroplasty of lateral tibial plateau. SURGEON: Lele Roberts MD ASISTANT: SOLE Khan assisted throughout the procedure and closed the incisions. ANESTHESIA: General endotracheal by Tunde Marie CRNA. TOURNIQUET TIME: Not applicable. ESTIMATED BLOOD LOSS: Minimal. DRAINS: None. COMPLICATIONS: None. POSTOPERATIVE PLANS: Routine arthroscopy protocol. The patient was transferred to the recovery room awake and in stable condition. CONDITION OF MEDICAL NECESSITY: The patient is a 41-year-old female with complaints of right anterior knee pain, catching, locking and swelling. She had patellofemoral crepitus and pain with patellar loading. She has tried rest, activity modifications, anti-inflammatories without relief. Due to functional impairment and failure to improve with conservative measures, the patient elected to proceed with surgical intervention. Examination under anesthesia revealed range of motion 0/0/130 with negative Juan C, negative anterior and posterior drawer. No varus or valgus laxity, negative pivot shift. Arthroscopic findings of the patella demonstrated grade 2 chondral flaps and a 20 x 20 area central inferiorly. Trochlea demonstrated no significant chondral abnormalities. The medial and lateral gutters were clear. The ACL and PCL were intact. The medial compartment demonstrated a grade 2 chondral flaps of the central portion and anterior portion of the femoral condyle in 20 x 20 area. No meniscal pathology was noted medially. The lateral compartment demonstrated a tear of the body and posterior horn of the lateral meniscus involving approximately one-third of the posterior horn and body. In addition, there were grade 3 chondral flaps of the central portion of the tibial plateau in a 10 x 10 area. DESCRIPTION OF PROCEDURE: After risks and benefits of the procedure were discussed and questions were answered, informed consent signed and placed on chart, the operative site was confirmed in the preoperative holding area and initialed by surgeon.. The patient was then transferred to the operating room. After adequate levels of general endotracheal anesthetic was obtained, a timeout was called, confirming the operative site. The right lower extremity was prepped and draped in the usual sterile fashion. The joint was injected with 60 mL of fluid and a standard inferolateral portal was placed with the arthroscope under direct visualization, an inferomedial portal was created. The menisci cruciates were carefully probed with the above findings noted. The unstable chondral flaps on the patella were debrided with a shaver back to a stable edge. The scope was then redirected into the medial compartment and the unstable chondral flaps on the medial femoral condyle were debrided with a shaver back to a stable edge. The scope was then redirected in the lateral compartment where the lateral meniscus tear was debrided with a shaver back to a stable edge was carefully probed. No further tearing or instability noted. The unstable chondral flaps of the lateral tibial plateau were debrided with a shaver back to a stable edge. The knee was copiously irrigated. The portal sites were closed with 4-0 nylon in simple fashion. The knee was injected with Duramorph. Port sites were infiltrated with plain Marcaine. A soft dressing was applied and the patient was transported to recovery room, awake and in stable condition. Job ID: [id number] DocumentID: [id number] Dictated Date: 03/12/2022 08:08:48 Desktop Technician Date: 03/12/2022 18:30:00 Dictated By: LELE ROBERTS MD
== END 2022-03-12 10:30 | disposition home or self-care (01) ==
LOC: SDC 06:11
PROVIDERS: ATTEND Orthopaedic Surgery
DX: S83.281A Other tear of lateral meniscus, current injury, right knee, initial encounter (principal); M22.41 Chondromalacia patellae, right knee; X58.XXXA Exposure to other specified factors, initial encounter
CPT/HCPCS: 87081

== ENCOUNTER → 2022-10-14 | Outpatient (CLI) | payer OTHER ==
[~2022-10-14] MED LIST changes: -LOSA100T57 PO; +LOSA100T58 PO; +OXYC-199 PO
--- NOTE | 2022-10-14 15:37 | Diagnostic Imaging Report ---
INDICATION: Routine screening. COMPARISON: 08/02/2021. TECHNIQUE: 2D and 3D bilateral screening mammography was performed with CAD. FINDINGS: Scattered fibroglandular densities are identified bilaterally. Benign nodules noted in the outer aspects of both breasts appear to be stable. No spiculated mass or malignant-appearing microcalcifications are seen. The axillae are unremarkable. IMPRESSION: No mammographic features suspicious for malignancy are identified. ACR BI-RADS Category 2: Benign findings. Result letter will be mailed to the patient. Note: At least 10% of breast cancer is not imaged by mammography. Dictated by: Dictated on workstation # [id number]
== END ==
LOC: RAD 10:58
PROVIDERS: ATTEND Nurse Practitioner Family
DX: Z12.31 Encounter for screening mammogram for malignant neoplasm of breast (principal); E04.1 Nontoxic single thyroid nodule
CPT/HCPCS: 77063; 77067

== ENCOUNTER 2022-11-05 05:31 | Outpatient (CLI) | payer OTHER ==
[~2022-11-05] VITALS: Ht 175.3 cm; Wt 131.8 kg
== END 2022-11-06 09:02 ==
LOC: PREOP 05:31
PROVIDERS: ATTEND Orthopaedic Surgery
DX: Z01.818 Encounter for other preprocedural examination (principal)